=== PATIENT | female | born 1970 | race Caucasian/White ===

== ENCOUNTER 2020-02-10 11:30 | Outpatient (REF) | payer OTHER, BC, SELFPAY ==
[2020-02-10 11:54] LABS: COVID-19 Test Negative (Negative)
== END 2020-02-10 11:31 | disposition home or self-care (01) ==
LOC: HO.EMPCOV 11:30
PROVIDERS: Visit Provider Internal Medicine
DX: Z20.828 Contact with and (suspected) exposure to other viral communicable diseases (principal)
CPT/HCPCS: 87635; C9803

== ENCOUNTER 2020-04-06 09:56 | Outpatient (REF) | payer OTHER, BC, SELFPAY ==
--- NOTE | 2020-04-06 | PFT_ITS ---
FLOWS: FEV1 of 113% of predicted at 3.38 L. FVC 105% of predicted at 3.96 L. FEV1 to FVC ratio of 0.85. Positive bronchodilator response. LUNG VOLUMES: Total lung capacity 96% of predicted at 5.14 L. Residual volume 64% of predicted at 1.23 L. Slow vital capacity 113% of predicted at 3.91 L. Expiratory reserve volume 90% of predicted at 0.99 L. Diffusion capacity is normal. IMPRESSION: No obstructive or restrictive ventilatory defect. Positive bronchodilator response. Otherwise, normal pulmonary function test. Manpreet Henry MD AP/MODL / [id number]
== END 2020-04-06 09:57 | disposition home or self-care (01) ==
LOC: HO.RESP 09:56
PROVIDERS: Visit Provider Physician Assistant
DX: R05 Cough (principal)
CPT/HCPCS: 94060; 94727; 94729

== ENCOUNTER 2022-03-17 09:58 | Outpatient (REF) | payer SELFPAY | END 2022-03-17 09:59 | disposition home or self-care (01) | LOC: HO.HAP 09:58 | PROVIDERS: Visit Provider Family Medicine | DX: Z46.1 Encounter for fitting and adjustment of hearing aid (principal) | CPT/HCPCS: V5267 ==

== ENCOUNTER 2024-01-23 08:02 | Outpatient (REF) | payer BC, SELFPAY ==
[2024-01-23 09:50] LABS: Anion Gap 10 (12-20); Blood Urea Nitrogen 15 mg/dL (9-16); Calcium 9.2 mg/dL (8.4-10.2); Carbon Dioxide 27 mmol/L (22-29); Chloride 104 mmol/L (96-108); Cholesterol 220 mg/dL (<200); Estimated Glomerular Filt Rate > 60; Glucose Random 94 mg/dL (60-115); HDL Cholesterol 65 mg/dL (>40); LDL Cholesterol Calculated 129 mg/dL (<100); Potassium 4.5 mmol/L (3.3-5.1); Sodium 136 mmol/L (135-145); Triglycerides 132 mg/dL (<150)
[2024-01-25 19:29] LABS: LDL Cholesterol Direct 135 mg/dL (<100)
== END 2024-01-23 08:03 | disposition home or self-care (01) ==
LOC: HO.LAB 08:02
PROVIDERS: PCP Physician Assistant; Visit Provider Family Medicine
DX: E78.2 Mixed hyperlipidemia (principal)
CPT/HCPCS: 36415; 80048; 80061; 83721

== ENCOUNTER 2024-06-14 13:50 | Outpatient (AMB) | payer BC, SELFPAY ==
--- NOTE | 2024-06-14 13:52 | A.OFFVIS_ITS ---
Vital Signs 06/14/24 14:02 Height 5 ft 6 in Weight 174 lb 2.643 oz BMI 28.1 BP 152/70 H Blood Pressure Location Lt brachial Position Sitting Pulse 78 Intake Visit Reasons: Diverticulitis Intake Note: Raina presents in the office asa new patient. CC: states that she had a flare up a couple months ago - she had a CT and images are in there as it was done here. She states that she is questioning a rectocele. Security Escort Required: No Allergies carbamazepine [From Tegretol] Allergy (Mild, Verified 06/14/24 14:02) Unknown HPI HPI Diverticulitis: Details: Patient is a 54-year-old female with past medical history of hypertension, constipation and diverticulitis. She was referred by PCP for further eval of diverticulitis. She was evaluated by her PCP fall 2024 for acute abdominal pain and stool changes. She underwent a CT 10/2023 which revealed uncomplicated diverticulitis in the descending colon without evidence of abscess. First screening colonoscopy 04/2019, difficulty reported due to significant looping and tortuous colon. However, successful completion aided by abdominal pressure and good prep. Diverticulosis noted in the sigmoid colon and ascending colon. She underwent an endoscopy as well. Appears for heartburn and esophageal reflux evaluation. Suspicion for Hodges's esophagus. Biopsy results not available at time of visit. She reports concern for ? Rectocele-describes as a bulge between the vagina and the rectum in the setting of chronic constipation. She is unclear if symptoms change with defecating. She is scheduled to see Urogynecology in the coming months. Reports daily bowel movements with soft formed stools. However, reports sensation of incomplete evacuation X approximately 10 months. She endorses adequate hydration and consumes Metamucil daily. Also uses a squatty potty. Does experience occasional hemorrhoids-currently denies episode. Patient denies: systemic symptoms, n/v, appetite changes, unexplained weight loss or melena/hematochezia She is prescribed olmesartan for hypertenion managment. Prescribed Ozempic since October 2023 for weight management. She denies any major surgeries, other cardiopulmonary condition or any personal CA history Social history: Consumes approximately 2 glasses of wine 4x/week Denies recreational drug use? Non -smoker Family history: Father-prostate cancer Paternal aunt-breast cancer, remission [facility] Surgical History (Updated 06/14/24 @ 14:02 by LIZZ Mercado) Hx of colonoscopy History of esophagogastroduodenoscopy (EGD) Review of Systems Const Reports as per [facility] Card Reports as per [facility] Resp Reports as per HPI GI Reports as per HPI Reports as per HPI Neuro Reports as per HPI Psych Reports as per HPI Physical Exam Vital Signs: Last Vital Signs Pulse 78 06/14/24 14:02 BP 152/70 H 06/14/24 14:02 BMI result Body Mass Index 28.1 Const General: healthy appearing, no acute distress and well developed Nutritional Appearance: well nourished Orientation/consciousness: patient oriented x3 HEENT Head: Yes normal to inspection, Yes normocephalic and Yes atraumatic Face and sinus: Yes normal facial exam Eyes General: appearance normal, both eyes and all related structures Neck Neck: Yes normal visual inspection Resp Effort & Inspection: normal respiratory effort and able to speak in complete sentences Neuro General: patient oriented x3 Gait exam (Neuro): Normal gait present Psych Appearance: grossly normal Mental Status: mental status grossly normal Speech and movement: Normal speech and movement present Affect: normal affect Attitude: cooperative Thought process: Normal thought process present Thought content: Normal thought content present Insight: Good insight present (Psych) Judgement: Good judgement present (Psych) Assessment & Plan Assessment & Plan (1) Diverticulosis: Code(s): K57.90 - Diverticulosis of intestine, part unspecified, without perforation or abscess without bleeding Category: Medical Plan: Reviewed to 05/02/2019 screening colonoscopy- diverticulosis noted to ascending and sigmoid colon and 10/23/[address]- uncomplicated focal descending colonic diverticulitis without evidence of extraluminal abscess + can see in ascending colon on scan. Advised to repeat colonoscopy for confirmation VS CA r/o. Continue with adequate hydration and fiber. Education on prep and p rocedure expectations. She understands to hold Ozempic a week prior to procedure. Prepped Rx'd to preferred pharmacy. (2) Overweight (BMI 25.0-29.9): Code(s): E66.3 - Overweight Category: Medical Plan: BMI 28.1. Prescribed Ozempic since 10/2023 (3) Constipation: Code(s): K59.00 - Constipation, unspecified Category: Medical Plan: long hx. ? complication of rectocele. Discuss XR defecography for further eval. She is agreeable and understands this will be completed at [facility]. Keep upcoming appt with Urogyn. Continue supportive care of adequate hydration, higher fiber intake and proper toilet positioning. Folllow up after colo + testing or sooner as needed. (4) History of diverticulitis: Code(s): Z87.19 - Personal history of other diseases of the digestive system Plan: single episode 10/2023. Plan as above. Plan as above Orders: Orders XR defecography Today K59.00 - Constipation, unspecified Medications: New peg 3350-electrolytes 236-22.74-6.74 -5.86 gram (Golytely) as per split prep instructions, until fecal effluent is clear 240 mL PO Q10M 4,000 mL 0RF colonoscopy Coding Level of Care Code New Pt New Pt Level 4 (06273) Patient Type New Diagnoses Diverticulosis K57.90 Overweight (BMI 25.0-29.9) E66.3 Constipation K59.00 History of diverticulitis Z87.19
[2024-06-14 14:02] VITALS: BP 152/70; PULSE 78; BMI 28.1
== END 2024-06-14 14:51 | disposition home or self-care (01) ==
LOC: HO.HGI 13:51
PROVIDERS: Visit Provider Internal Medicine
DX: K57.90 Diverticulosis of intestine, part unspecified, without perforation or abscess without bleeding (principal); E66.3 Overweight; K59.00 Constipation, unspecified; Z87.19 Personal history of other diseases of the digestive system
CPT/HCPCS: 99204

== ENCOUNTER → 2024-06-14 13:50 | Outpatient (BNVA) | payer BC, SELFPAY | PROVIDERS: Visit Provider Internal Medicine ==

== ENCOUNTER 2024-08-12 11:49 | Outpatient (REF) | payer BC, SELFPAY | END 2024-08-12 11:50 | disposition home or self-care (01) | LOC: HO.LNP 11:49 | PROVIDERS: Visit Provider Obstetrics & Gynecology | DX: R87.612 Low grade squamous intraepithelial lesion on cytologic smear of cervix (LGSIL) (principal) | CPT/HCPCS: 57454; 88305; 88341; 88342 ==

== ENCOUNTER 2024-08-12 11:49 | Outpatient (AMB) | payer BC, SELFPAY ==
--- NOTE | 2024-08-12 11:55 | MHC.OFFVIS ---
Vital Signs 08/12/24 11:56 Height 5 ft 6 in Weight 174 lb BMI 28.1 BP 130/84 Intake Visit Reasons: rectal/vag prolapse/personal referral Director Of Officiating Required: No Information Interpreted: non-clinical & clinical Education Instructor: Education Instructor Present (Qi ZAMUDIO) Accompanied by: Self / Same As Patient Allergies carbamazepine [From Tegretol] Allergy (Mild, Verified 08/12/24 11:56) Unknown Post menopausal: Yes HPI Comments Details: Presenting for abnormal Pap [place] done in 04[place] [place] [facility] [place]/HPV high-risk positive . In addition, the patient is complaining of rectal pressure bulge per vagina leading to constipation. The Patient was referred to urogynecology at [facility] and is considering surgical management [facility] Medical History HTN (hypertension) Surgical History Hx of colonoscopy History of esophagogastroduodenoscopy (EGD) Family History Father HTN (hypertension) Mother HTN (hypertension) Sister HTN (hypertension) Paternal Aunt Breast cancer Social History Household Members: Spouse Household Members Other:: mother Housing: House Alcohol intake: current Alcohol intake frequency: a few times a week Alcohol type: wine Patient Tobacco Use Status: Never used Tobacco Current occupational status: employed 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[place] Sexual orientation: Straight/Heterosexual Gender identity: Female Female Reproductive History Menstrual Total pregnancies: 4 Full term: 1 Number of Living Children: 1 Ab spontaneous: 1 Review of Systems Const All systems reviewed & are unremarkable except as noted in HPI and below Physical Exam Vital Signs: Last Vital Signs BP 130/84 08/12/24 11:56 BMI result Body Mass Index 28.1 General: Yes no CVA tenderness External Female Exam: normal external appearance and normal appearance of the urethra Speculum Exam - Vagina: abnormal appearance of the vagina (Rectocele), normal palpation, no lesions and no masses Speculum Exam - Cervix: normal appearance of the cervix, normal palpation, no lesions, no masses and nontender Bimanual exam- vagina & uterus: normal bimanual exam, normal palpation, uterine size normal, normal palpation, uterine shape normal, No Cervical tenderness present and non-tender Bimanual Exam- Adnexa, other: normal adnexae Back/Spine/Pelvis Back: no CVA tenderness Office Procedures Colposcopy Colposcopy: Pre-Procedure Counseling: Before beginning the procedure, I conducted comprehensive counseling with the patient. We thoroughly discussed the procedure itself, including its details, alternatives, and all associated risks. This included but not limited to the following complications such as bleeding, infection, and injury to the vagina, bladder, and vessels, as well as the potential need for transfusion with all its associated risks. Subsequently, the patient sign the consent. Pap smear result: LSIL/HPV positive. Urine test in office = Negative Procedure: During the procedure, the following steps were performed: A speculum was inserted, and acetic acid was applied. Colposcopy was conducted, allowing visualization of the transformation zone. Acetowhite lesions were identified at the 4+7+12+3 o'clock position. Cervical biopsies were obtained from the 4+7+12+ o'clock position, followed by an endocervical curettage (ECC). Vaginoscopy of the upper vagina revealed no evidence of aceto-white lesions. Hemostasis was achieved using Monsel solution, and the patient tolerated the procedure well. Post-Procedure Instructions: The patient was advised to promptly contact the office or the after hours answering service or go to the emergency room if experiencing a temperature exceeding 100.4?F, abdominal pain, nausea/vomiting, or bleeding. Additionally, the patient was instructed to abstain from vaginal intercourse and bathtub use. The patient confirmed understanding of these instructions. Discharge Instructions: The patient was instructed to schedule a follow-up appointment in 2 weeks for further evaluation and management. Please note that this note was generated using a voice recognition program, and errors may have occurred during dental office manager. 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 the false positive/negative rate of a Pap smear as a screening test in detecting cervical cancer and the indication for a diagnostic test -colposcopy, biopsy, endocervical curettage. The patient verbalized understanding and agreed with the plan, all questions answered. Colposcopy, biopsy /ECC done, see procedure note (2) Rectocele: Code(s): N81.6 - Rectocele Category: Medical Plan: Discussed with the patient the finding on pelvic exam showing rectocele with the patient already so [facility] Urogynecology, the recommendation was surgical management, the patient is thinking about it. Will refer back to Urogynecology when the patient is interested. Orders: Orders AMB Colposcopy Today R87.612 - Low grade squamous intraepithelial lesion on cytologic smear of cervix (LGSIL) Coding Level of Care Code New Pt Level 3 (10357) Procedure Only Diagnoses LGSIL on Pap smear of cervix R87.612 Rectocele N81.6 CPT Codes Colposcopy - CPT: 93203-Cegvedvow of cervix including upper vagina with biopsy and ECC ([id number])
[2024-08-12 11:56] VITALS: BP 130/84; BMI 28.1
== END 2024-08-12 12:46 | disposition home or self-care (01) ==
LOC: HO.HWS 11:50
PROVIDERS: Visit Provider Obstetrics & Gynecology
DX: R87.612 Low grade squamous intraepithelial lesion on cytologic smear of cervix (LGSIL) (principal); N81.6 Rectocele
CPT/HCPCS: 57454; 99203

== ENCOUNTER 2024-08-15 11:56 | Outpatient (AMB) | payer OTHER, SELFPAY ==
--- NOTE | 2024-08-15 11:57 | MHC.OFFVIS ---
Intake Visit Reasons: vaginal bleeding after colpo Reel Stripper: Reel Stripper Present (Oma) Accompanied by: Self / Same As Patient Allergies carbamazepine [From Tegretol] Allergy (Mild, Verified 08/15/24 11:57) Unknown HPI Comments Details: Presenting post colpo complaining of vaginal irritation. In addition the patient had an episode of vaginal bleeding during a BM this morning. Bleeding has resolved since then. The pathology showed the following: A. Endocervix, curettage: Endocervical glandular mucosa with squamous metaplasia, inflammation, and reactive changes; negative for dysplasia. B. Cervix, 3:00, biopsy: Squamous mucosa with inflammation and reactive changes; negative for dysplasia; no endocervical glandular mucosa present. C. Cervix, 4:00, biopsy: Squamous mucosa with inflammation and reactive changes; negative for dysplasia; no endocervical glandular mucosa present. D. Cervix, 7:00, biopsy: Squamous mucosa with inflammation and reactive changes; negative for dysplasia; no endocervical glandular mucosa present. E. Cervix, 12:00, biopsy: Squamous mucosa with inflammation and reactive changes; negative for dysplasia; no endocervical glandular mucosa present. Comment: No recent previous Pap at [facility] for review. 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[place] Sexual orientation: Straight/Heterosexual Gender identity: Female Review of Systems Const All systems reviewed & are unremarkable except as noted in HPI and below Reports as per HPI and Reports no additional complaints GI Reports no additional complaints Reports no additional complaints Physical Exam General: Yes no CVA tenderness External Female Exam: normal external appearance and normal appearance of the urethra Speculum Exam - Vagina: normal appearance of the vagina, normal palpation, no lesions and no masses Speculum Exam - Cervix: normal appearance of the cervix, normal palpation, no lesions, no masses, nontender and Other cervical findings present (No evidence of bleeding) Bimanual exam- vagina & uterus: normal bimanual exam, normal palpation, uterine size normal, normal palpation, uterine shape normal, No Cervical tenderness present and non-tender Bimanual Exam- Adnexa, other: normal adnexae Back/Spine/Pelvis Back: no CVA tenderness Assessment & Plan Assessment & Plan (1) 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 Discussed with the patient the sensitivity specificity, positive and negative predictive value in detecting cervical cancer in addition discussed the regression, persistence and progression rates. Recommended co-testing in 12 months, if cytology and or HPV are abnormal will proceed was colposcopy biopsy and endocervical curettage. Instructions given to the patient to schedule a co test appointment in 1 year. All questions answered the patient verbalized understanding. (2) Vulvovaginitis: Code(s): N76.0 - Acute vaginitis Category: Medical Plan: BV panel collected. Will check the results and treat accordingly. Terazol 0.8% q.h.s. for 3 days sent to the patient's pharmacy. Instructions given the patient to call in case symptoms not improve Medications: New terconazole 0.8% 1 appful vaginal BEDTIME 3 days 20 grams 0RF Coding Level of Care Code Est Pt Level 3 (83468) Diagnoses LGSIL on Pap smear of cervix R87.612 Vulvovaginitis N76.0
== END 2024-08-15 12:07 | disposition home or self-care (01) ==
LOC: HO.HWS 11:56
PROVIDERS: Visit Provider Obstetrics & Gynecology
DX: R87.612 Low grade squamous intraepithelial lesion on cytologic smear of cervix (LGSIL) (principal); N76.0 Acute vaginitis
CPT/HCPCS: 99213

== ENCOUNTER 2024-08-15 11:56 | Outpatient (REF) | payer OTHER, SELFPAY ==
[2024-08-15 17:27] LABS: Bacterial Vaginosis PCR NEGATIVE (Negative); Candida Group PCR NOT DETECTED (Not Detect); Candida glab krusei PCR NOT DETECTED (Not Detect); Trichomonas vaginalis PCR NOT DETECTED (Not Detect)
== END 2024-08-15 11:57 | disposition home or self-care (01) ==
LOC: HO.LNP 11:56
PROVIDERS: Visit Provider Obstetrics & Gynecology
DX: N76.0 Acute vaginitis (principal); R87.612 Low grade squamous intraepithelial lesion on cytologic smear of cervix (LGSIL)
CPT/HCPCS: 81515

== ENCOUNTER 2024-09-05 11:46 | Day surgery (SDC) | payer OTHER, SELFPAY ==
--- NOTE | 2024-09-02 12:47 | P.CONAN_ITS ---
HPI - Anesthesia Eval Consult details Narrative: 54yo F for Colonoscopy PMFSH Active Problems Active Problems: All Active Problems Vulvovaginitis (Acute) Rectocele (Acute) LGSIL on Pap smear of cervix (Acute) Overweight (BMI 25.0-29.9) (Acute) Diverticulosis (Acute) Constipation (Acute) Pain in toe of left foot (Acute ~11/28/23) COVID-19 ruled out (Acute) Past Medical History Medical History Trigeminal neuralgia HTN (hypertension) Family History Family History Father HTN (hypertension) Mother HTN (hypertension) Sister HTN (hypertension) Paternal Aunt Breast cancer Surgical History Surgical History H/O sinus surgery H/O tubal ligation Hx of colposcopy with cervical biopsy Hx of colonoscopy History of esophagogastroduodenoscopy (EGD) Social History Social History Household Members: Spouse Household Members Other:: mother Housing: House Alcohol intake: current Alcohol intake frequency: a few times a month Alcohol type: wine Patient Tobacco Use Status: Never used Tobacco Current occupational status: employed 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[place] Sexual orientation: Straight/Heterosexual Gender identity: Female Meds Allergies Allergy/AdvReac Type Severity Reaction Status Date / Time carbamazepine (From Tegretol) Allergy Mild Hives Verified 09/11/24 13:03 Home Medications ?Medication ?Instructions ?Recorded ?Confirmed ?Last Taken ?Type bupropion HCl 150 mg 24 hr tablet, 150 mg PO DAILY 07/05 Unknown History extended release escitalopram oxalate 10 mg tablet 10 mg PO DAILY 06/14 Unknown History olmesartan 20 mg tablet 20 mg PO DAILY 06/14/24 Unk nown History polyethylene glycol 3350 17 17 g PO DAILY PRN 09/11/24 Unknown History gram/dose oral powder (Miralax) Assessment and Plan Assessment Anesthesia Assessment: Chart Reviewed
[2024-09-03 09:28] VITALS: BMI 28.1
[2024-09-05 12:19] VITALS: BMI 27.8
--- NOTE | 2024-09-05 12:22 | MHC.SHP ---
Pre-Procedural Eval Section A - 24 Hr Update-Section A only Date of Service: 09/05/24 Section B - Complete if H&P > 30 days Chief Complaint: Diverticulitis of intestine, part unspecified, wit Details of Present Illness: hypertension, constipation and diverticulitis Present Medications: see Short Stay Collaborative assessment Allergies: Allergies Allergy/AdvReac Type Severity Reaction Status Date / Time carbamazepine (From Tegretol) Allergy Mild Hives Verified 09/05/24 12:18 Review of Systems Review of Systems Comment: Ten point ROS negative Exam Exam Comment: Gen appear: No acute distress HEENT: no icterus Chest: No overt resp distress Abd: soft, nontender, nondistended Psych: Stable affect, answering questions appropriately Neuro: A/Ox3 noted to move all extremities spontaneously Ext: no peripheral edema Plan Diagnosis/Plan: Unchanged I have reviewed the history and physical and performed a pertinent physical examination on my patient. No changes have occurred unless specified. Time Spent With Patient Time: Total time managing care of this patient today ____ minutes.
[2024-09-05 12:31] VITALS: BP 132/87; PULSE 65; RESP 16; TEMP 36.2; O2SAT 100
[2024-09-05] MEDS: Lactated Ringers 1,000 ML 100 ML IVCONT (12:44)
--- NOTE | 2024-09-05 12:48 | HO.ANESPROP2 ---
[facility] [place] [place] Active Problems Active Problems: All Active Problems (Updated 09/05/24 @ 12:19 by Citlalli Doss RN) Vulvovaginitis (Acute) Rectocele (Acute) LGSIL on Pap smear of cervix (Acute) Overweight (BMI 25.0-29.9) (Acute) Diverticulosis (Acute) Constipation (Acute) Pain in toe of left foot (Acute ~11/28/23) COVID-19 ruled out (Acute) Past Medical History Medical History Trigeminal neuralgia HTN (hypertension) Functional capacity: independent ambulation Patient : No Family History Family History Father HTN (hypertension) Mother HTN (hypertension) Sister HTN (hypertension) Paternal Aunt Breast cancer Family history of problems with anesthesia: No Surgical History Surgical History H/O sinus surgery H/O tubal ligation Hx of colposcopy with cervical biopsy Hx of colonoscopy History of esophagogastroduodenoscopy (EGD) History of Problems with Anesthesia: No Social History Social History Household Members: Spouse Household Members Other:: mother Housing: House Alcohol intake: current Alcohol intake frequency: a few times a week Alcohol type: wine Patient Tobacco Use Status: Never used Tobacco Current occupational status: employed 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[place] Sexual orientation: Straight/Heterosexual Gender identity: Female Meds Allergies Allergy/AdvReac Type Severity Reaction Status Date / Time carbamazepine (From Tegretol) Allergy Mild Hives Verified 09/05/24 12:18 Active Medications: Current Medications Lactated Ringer's (Lr) 1,000 mls @ 100 mls/hr IVCONT .Q10H HUBER Last Admin: 09/05/24 12:44 Dose: 100 mls/hr Home Medications ?Medication ?Instructions ?Recorded ?Confirmed ?Last Taken ?Type bupropion HCl 150 mg 24 hr tablet, 150 mg PO DAILY 06/14/24 Unknown History extended release escitalopram oxalate 10 mg tablet 10 mg PO DAILY 06/14/24 Unknown History olmesartan 20 mg tablet 20 mg PO DAILY 06/14/24 Unknown History Exam Height,Weight and Vital Signs: Height 5 ft 6 in Weight 78.2 kg Last Vital Signs Temp 97.2 F 09/05/24 12:31 Pulse 65 09/05/24 12:31 Resp 16 09/05/24 12:31 BP 132/87 09/05/24 12:31 Pulse Ox 100 09/05/24 12:31 O2 Del Method Room Air 09/05/24 12:31 Airway Mallampati Class: II TM Dist: >3cm Neck ROM: Full Heart: RRR Lungs: CTA Assessment and Plan Assessment Anesthesia Assessment: Anesthesia Plan Discussed Final Anesthetic Review Family History of Problems with Anesthesia: No History of Problems with Anesthesia: No NPO: Yes ASA Class: II Final Preanesthetic Review: Meds/Allgs Chart Reviewed, Consent Obtained/Reviewed and Anes Risks/Benef Reviewed Patient Risk: Low Procedure Risk: Low Anesthetic Plan Anesthetic Plan: MAC: Disposition: Standard PACU
--- NOTE | 2024-09-05 14:01 | P.OPN-COLO_ITS ---
Colonoscopy Operative Note Operative Note Date of Service: 09/05/24 Narrative: Procedure: Colonoscopy Indication: Diverticulitis Endoscopist: Sandy Abernathy MD Anesthesia Provider: Dr Katie Villegas Anesthesia type: MAC Instrument: Olympus [id number] Consent: Indication, risks vs benefits, and alternatives were discussed with the patient who gave written informed consent to proceed. EKG, pulse, pulse oximetry and blood pressure were monitored throughout the procedure. Please see anesthesia flowsheet. Procedure: The patient was brought to the procedure room and placed in the left lateral decubitus position. IV medications were administered by the anesthesia provider in attendance. A digital rectal exam was performed which was normal. A distal attachment cap was affixed to the tip of the colonoscope which was then inserted through the anus and advanced through the colon to the cecum at 75 cm,and terminal ileum. Appendiceal orifice and ileocecal valve were identified. Mucosa was carefully examined under high definition white light as the instrument was slowly withdrawn in a retrograde panoramic fashion. Retroflexion was performed in rectum. The procedure was not difficult. There were no immediate obvious complications. The quality of the prep was BBPS: 2+3+3 = adequate Withdrawal time 8 minutes. Limitations: No limitations. Findings: Mucosa: Normal to cecum and terminal ileum. Protruding lesions: * Medium internal hemorrhoids without stigmata of recent bleeding. Excavated lesions: * Moderate diverticulosis of left sided colon. Impression: 1. Normal colon mucosa 2. Diverticulosis 3. Internal hemorrhoids Recommendations: - Repeat colonoscopy in 10 years for asymptomatic colorectal ca screening. - Would recommend adult scope for future colo as well.
[2024-09-05 14:06] VITALS: BP 96/58; PULSE 70; RESP 16; TEMP 36.8; O2SAT 96
[2024-09-05 14:20] VITALS: BP 108/67; PULSE 77; RESP 16; O2SAT 97
[2024-09-05 14:26] VITALS: BP 114/69; PULSE 69; RESP 16; TEMP 37.1; O2SAT 97
== END 2024-09-05 14:47 | disposition home or self-care (01) ==
PROVIDERS: PCP Family Medicine; Visit Provider Internal Medicine
PROC: 0DJD8ZZ Inspection of Lower Intestinal Tract, Via Natural or Artificial Opening Endoscopic (ICD-10-PCS; CPT 45378; principal; 2024-09-05 14:20)
DX: K57.30 Diverticulosis of large intestine without perforation or abscess without bleeding (principal); K64.8 Other hemorrhoids; Z87.19 Personal history of other diseases of the digestive system
CPT/HCPCS: 45378

== ENCOUNTER → 2024-09-05 11:46 | Outpatient (BNV) | payer OTHER, SELFPAY | PROVIDERS: PCP Family Medicine; Visit Provider Internal Medicine | DX: K57.90 Diverticulosis of intestine, part unspecified, without perforation or abscess without bleeding (principal); K64.8 Other hemorrhoids | CPT/HCPCS: 45378 ==

== ENCOUNTER → 2024-09-08 08:20 | Outpatient (BNV) | payer OTHER, SELFPAY | PROVIDERS: Emergency Provider Emergency Medicine; PCP Family Medicine; Visit Provider Radiology Diagnostic Radiology | DX: M25.512 Pain in left shoulder (principal) | CPT/HCPCS: 73030 ==

== ENCOUNTER 2024-09-08 08:49 | Emergency (ER) | payer OTHER, SELFPAY ==
--- NOTE | ~2024-09-08 | XR_ITS ---
CLINICAL HISTORY: pain s p fall 3 view left shoulder Comparison: None Findings: No fracture or dislocation. Mild acromioclavicular and glenohumeral osteoarthritis. Subacromial spur. IMPRESSION: 1. No acute findings. This document has been electronically signed by: Alok Dwyer DO on 09/08/2024 11:50:04
[2024-09-08 08:51] VITALS: BP 132/79; PULSE 83; RESP 18; TEMP 37.2; O2SAT 97; BMI 28.9
--- NOTE | 2024-09-08 09:05 | ED_ITS ---
HPI - Extremity Problem General Chief complaint: Extremity Injury, Upper Stated complaint: shoulder inj Time Seen by Provider: 09/08/24 09:05 Source: patient Mode of arrival: ambulatory Limitations: no limitations History of Present Illness ED Provider: Yumiko Flanagan PA-C HPI Narrative: Patient is a 54 year old assigned female at with a history of diverticulosis presenting to the emergency department today with left shoulder pain. Patient states that yesterday she fell down 2 stairs and ever since she has had left shoulder pain with specific movement. Patient denies any loss of consciousness, dizziness, lightheadedness, abdominal pain, nausea, vomiting, fever, chills, blurry vision, double vision, loss of vision, chest pain, difficulty breathing, shortness of breath, back pain, night sweats, pain with urination, increased urinary frequency, increased urinary urgency, blood in her urine or stool, syncope or a near syncopal episode, bowel incontinence, bladder incontinence, or any other complaints at this time. Relieving factors: immobilization Exacerbating factors: range of motion Associated symptoms: denies other symptoms Related Data Home Medications ?Medication ?Instructions ?Recorded ?Confirmed bupropion HCl 150 mg 24 hr tablet, 150 mg PO DAILY 07/05 extended release escitalopram oxalate 10 mg tablet 10 mg PO DAILY 06/14 olmesartan 20 mg tablet 20 mg PO DAILY 06/14/24 Previous Rx's ?Medication ?Instructions ?Recorded terconazole 0.8 % vaginal cream 1 appful vaginal BEDTI ME 3 days 08/15/24 #20 grams Allergies Allergy/AdvReac Type Severity Reaction Status Date / Time carbamazepine (From Tegretol) Allergy Mild Hives Verified 09/08/24 08:54 Review of Systems Constitutional: Constitutional: Reports no additional constitutional complaints, Denies chills, Denies fever(s) and Denies night sweats Eyes: Eyes: Reports no additional eye complaints, Denies blurry vision, Denies change in vision, Denies diplopia, Denies eye discharge, Denies loss of vision and Denies eye pain ENT: Denies dizziness Cardiovascular: Cardiovascular: Reports no additional cardiovascular complaints, Denies chest pain, Denies lightheadedness, Denies Loss of Consciousness and Denies dyspnea Respiratory: Respiratory: Reports no additional respiratory complaints and Denies dyspnea Gastrointestinal: Gastrointestinal: Reports no additional gastrointestinal complaints, Denies abdominal pain, Denies melena, Denies hematochezia, Denies change in bowel habits and Denies change in stool character Genitourinary: Genitourinary: Denies hematuria, Denies urinary frequency, Denies dysuria, Denies urinary incontinence, Denies urinary hesitancy and Denies urinary urgency Musculoskeletal: Musculoskeletal: Reports no additional musculoskeletal complaints, Denies numbness and Denies tingling Comments: left shoulder pain Neurologic: Denies dizziness, Denies loss of vision, Denies numbness and Denies tingling Psychiatric: Psychiatric: Reports no additional psychiatric complaints Endocrine: Endocrine: Reports no additional endocrine complaints Hematologic/Lymphatic: Hematologic/Lymphatic: Reports no additional hematologic/lymphatic complaints Allergic/Immunologic: Allergic/Immunologic: Reports no additional allergic/immunologic complaints PMFSH Past Medical History Attestation statement: The following information was validated with the patient. Source: old records reviewed and nursing notes reviewed Medical History Trigeminal neuralgia HTN (hypertension) Surgical History H/O sinus surgery H/O tubal ligation Hx of colposcopy with cervical biopsy Hx of colonoscopy History of esophagogastroduodenoscopy (EGD) Family History Family History Father HTN (hypertension) Mother HTN (hypertension) Sister HTN (hypertension) Paternal Aunt Breast cancer Social History Social History Household Members: Spouse Household Members Other:: mother Housing: House Alcohol intake: current Alcohol intake frequency: a few times a month Alcohol type: wine Patient Tobacco Use Status: Never used Tobacco Smoked in Last 30 Days: No Use of substances other than those prescribed or required for medical reasons: No Advance Directives: No Advance Directives Information Provided: Yes Current occupational status: employed 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[place] Sexual orientation: Straight/Heterosexual Gender identity: Female Physical Exam Vital Signs: Vital Signs: Last Vital Signs Temp 98.4 F 09/08/24 10:12 Pulse 80 09/08/24 10:12 Resp 15 09/08/24 10:12 BP 132/82 09/08/24 10:12 Pulse Ox 99 09/08/24 10:12 O2 Del Method Room Air 09/08/24 10:12 BMI result Body Mass Index 28.9 Const: General: cooperative, no acute distress, alert and awake Nutritional Appearance: well nourished Orientation/consciousness: patient oriented x3 HEENT: Head: Yes normal to inspection and Yes atraumatic Ears: hearing grossly normal bilaterally and external ears normal General nose exam: Normal external nose present, no nasal discharge noted and no epistaxis Face and sinus: Yes normal facial exam, No abrasion and No laceration Mouth: Normal oral and palatal mucosa present, no drooling and no muffled voice Eyes: General: appearance normal, both eyes and all related structures Periorbital: periorbital findings normal Eyelids: Yes eyelids normal Co njunctivae: conjunctivae normal Pupils: Equal, round and reactive pupils present EOM: EOMs intact bilaterally Neck: Neck: Yes normal visual inspection, Yes full ROM and Yes no lymphadenopathy Resp: Effort & Inspection: normal respiratory effort and able to speak in complete sentences Neuro: General: patient oriented x3, moves all extremities and CN's II-XI intact bilaterally Cranial nerves: Yes Equal, round and reactive pupils present Cognition (Neuro): normal cognition Extrem: Other: pain with left shoulder abduction General: Yes normal to inspection and Yes capillary refill normal Psych: Appearance: grossly normal Mental Status: mental status grossly normal Affect: normal affect Attitude: cooperative Thought process: Normal thought process present Thought content: Normal thought content present Insight: Good insight present (Psych) Medical Decision Making Medical Decision Making MDM Narrative: Patient is a 54 year old assigned female at with a history of diverticulosis presenting to the emergency department today with left shoulder pain. Patient's physical exam was as noted in the physical exam portion of this note. Patient's left shoulder x-ray showed no acute process. I am concerned for a left rotator cuff injury. I spoke with the orthopedic team who recommended outpatient follow up with sling use for comfort only. I explained my physical exam findings as well as all test results to the patient. I answered all questions asked by the patient. Patient's left arm was placed in a sling, without incident. Patient's PMS was intact prior to and after sling placement. I stressed the importance of the patient taking her medication as directed (either prescribed or as the over the counter packaging recommends). I stressed the importance of the patient following up with her primary care provider and the orthopedic team. I stressed the importance of the patient returning to the emergency department immediately if her symptoms were to worsen or if she were to develop any dizziness, shortness of breath, difficulty breathing, chest pain, blurry vision, loss of vision, nausea, vomiting, abdominal pain, fever, chills, back pain, or any other complaints. Patient verbalized agreement and understanding with this treatment plan and discharge. Differential Diagnosis Differential Diagnoses: The differential diagnosis associated with the presentation includes Left shoulder injury Left shoulder sprain Left shoulder rotator cuff injury Admission/Observation Consideration of admission/observation: Escalation of care including admission/observation considered Patient would have been admitted to the hospital had her work up had any findings where hospital admission was appropriate and her clinical presentation warranted hospital admission. Consult Healthcare Provider Management of the patient was discussed with: [facility] Advisor (spoke with the orthopedic team as noted in the MDM Rationale portion of this note. ) Independent Interpretation I performed an independent interpretation of an: Plain X-Ray Interpretation: My interpretation is in agreement with the radiologist's impression of this imaging study. CLINICAL HISTORY: pain s p fall 3 view left shoulder Comparison: None Findings: No fracture or dislocation. Mild acromioclavicular and glenohumeral osteoarthritis. Subacromial spur. IMPRESSION: 1. No acute findings. This document has been electronically signed by: Alok Dwyer DO on 09/08/2024 11:50:04 Dictated By: Alok Dwyer MD Signed By: Electronically signed by Alok Dwyer MD 09/08/24 115 Radiology Impression Discussion of test interpretation with radiology: I have reviewed the radiologist's reading. Discharge Plan Discharge Clinical Impression: Shoulder sprain, Injury of left rotator cuff Patient Disposition: Home, Self-Care Instructions: Rotator Cuff Injury (ED), Shoulder Sprain (ED), Rotator Cuff Injury Exercises (DC) Additional Instructions: Given your physical exam findings and imaging - I am suspicious you have injured your left rotator cuff (potentially your left supraspinatus muscle). The orthopedic team would like you to only use your sling for comfort and be out of it as much as possible. Continue with range of motion of the left shoulder that you can tolerate. Take over the counter tylenol and ibuprofen as needed for pain. Follow up with the orthopedic team. Follow up with your primary care provider. Return to the emergency department immediately if your symptoms worsen or if you develop any numbness, tingling, dizziness, shortness of breath, difficulty breathing, chest pain, blurry vision, loss of vision, nausea, vomiting, abdominal pain, fever, chills, back pain, or any other complaints. Prescriptions: No Action terconazole 0.8 % cream 1 appful vaginal BEDTIME 3 Days Qty: 20 0RF olmesartan 20 mg tablet 20 mg PO DAILY bupropion HCl 150 mg tablet extended release 24 hr 150 mg PO DAILY escitalopram oxalate 10 mg tablet 10 mg PO DAILY Referrals: [facility] [place] Orthopedic Surgeons [Provider Group] Referral Note: Call to establish and follow up with the orthopedic team. Ana Soto DO [Primary Care Provider, Family Practice] Interventions: ED Discharge Assessment Last Done: 09/08/24 10:12 Discharge Date/Time: 09/08/24 10:13 Print Language: Greenlandic
[2024-09-08 10:00] VITALS: BP 132/82; PULSE 80; RESP 15; TEMP 36.9; O2SAT 99
[2024-09-08 10:12] VITALS: BP 132/82; PULSE 80; RESP 15; TEMP 36.9; O2SAT 99
== END 2024-09-08 10:13 | disposition home or self-care (01) ==
LOC: HO.ED 10:03
PROVIDERS: Emergency Provider Emergency Medicine; PCP Family Medicine
DX: S43.422A Sprain of left rotator cuff capsule, initial encounter (principal); W10.9XXA Fall (on) (from) unspecified stairs and steps, initial encounter; Y93.9 Activity, unspecified; Y92.9 Unspecified place or not applicable; Y99.9 Unspecified external cause status; M25.512 Pain in left shoulder
CPT/HCPCS: 73030; 99283; 99284

== ENCOUNTER 2024-09-11 12:59 | Outpatient (AMB) | payer OTHER, SELFPAY ==
[2024-09-11 13:02] VITALS: BP 116/57; PULSE 69; BMI 28.8
--- NOTE | 2024-09-11 13:02 | A.OFFVIS_ITS ---
Vital Signs 3 09/11/24 13:02 Height 5 ft 6 in Weight 178 lb 9.191 oz BMI 28.8 BP 116/57 L Blood Pressure Location Lt brachial Position Sitting Pulse 69 Intake Visit Reasons: Follow up from colonoscopy and pelvis mri Intake Note: Raina presents in the office as a follow up for her colonoscopy. CC: She states that she is just here today for her results. Senior Auditor Required: No Allergies carbamazepine (From Tegretol) Allergy (Mild, Verified 09/11/24 13:03) Hives HPI Comments Details: Patient is a 54-year-old female with past medical history of hypertension, constipation and diverticulitis. She was referred by PCP for further eval of diverticulitis. She was evaluated by her PCP fall 2024 for acute abdominal pain and stool changes. She underwent a CT 10/2023 which revealed uncomplicated diverticulitis in the descending colon without evidence of abscess. First screening colonoscopy 04/2019, difficulty reported due to significant looping and tortuous colon. However, successful completion aided by abdominal pressure and good prep. Diverticulosis noted in the sigmoid colon and ascending colon. She underwent an endoscopy as well. Appears for heartburn and esophageal reflux evaluation. Suspicion for Hodges's esophagus. Biopsy results not available at time of visit. She reports concern for ? Rectocele-describes as a bulge between the vagina and the rectum in the setting of chronic constipation. She is unclear if symptoms change with defecating. She is scheduled to see Urogynecology in the coming months. Reports daily bowel movements with soft formed stools. However, reports sensation of incomplete evacuation X approximately 10 months. She endorses adequate hydration and consumes Metamucil daily. Also uses a squatty potty. Does experience occasional hemorrhoids-currently denies episode. Patient denies: systemic symptoms, n/v, appetite changes, unexplained weight loss or melena/hematochezia She is prescribed olmesartan for hypertenion managment. Prescribed Ozempic since October 2023 for weight management. She denies any major surgeries, other cardiopulmonary condition or any personal CA history Social history: Consumes approximately 2 glasses of wine 4x/week Denies recreational drug use? Non -smoker Family history: Father-prostate cancer Paternal aunt-breast cancer, remission 08/03/24: MR defecography: 09/05/24: 1. Normal colon mucosa 2. Diverticulosis 3. Internal hemorrhoids 09/11/24: Here for post colonoscopy follow-up. Notes reviewed from [facility]. Patient initially was planning to proceed with surgical repair, however reports that with medical management alone, constipation is under control and she currently is asymptomatic. Reviewed that based on defecography, appears to have intermittent urethral obstruction as well as incompletely emptying anterior rectocele. Encouraged seeing Colorectal surgery as well further input. [facility] Medical History Trigeminal neuralgia HTN (hypertension) Surgical History H/O sinus surgery H/O tubal ligation Hx of colposcopy with cervical biopsy Hx of colonoscopy History of esophagogastroduodenoscopy (EGD) Family History Father HTN (hypertension) Mother HTN (hypertension) Sister HTN (hypertension) Paternal Aunt Breast cancer Social History Household Members: Spouse Household Members Other:: mother Housing: House Alcohol intake: current Alcohol intake frequency: a few times a month Alcohol type: wine Patient Tobacco Use Status: Never used Tobacco Current occupational status: employed 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[place] Sexual orientation: Straight/Heterosexual Gender identity: Female Review of Systems Const All systems reviewed & are unremarkable except as noted in HPI and below Physical Exam Vital Signs: Last Vital Signs Pulse 69 09/11/24 13:02 BP 116/57 L 09/11/24 13:02 BMI result Body Mass Index 28.8 No apparent distress Nonicteric Abdomen soft, nondistended Alert and oriented x3, normal gait Assessment & Plan Assessment & Plan (1) Diverticulosis: Code(s): K57.90 - Diverticulosis of intestine, part unspecified, without perforation or abscess without bleeding Category: Medical (2) Rectocele: Code(s): N81.6 - Rectocele Category: Medical Plan Constipation is much better controlled, patient is asymptomatic. However, does have pelvic organ prolapse affecting both rectum and bladder emptying based on defecography. Pt unsure if really needs to pursue surgical repair if subjectively has minimal constipation. Reviewed that since has urinary sx may need some kind of surgical repair jose miguel if urodynamic study confirms functional urinary obstruction. On the other hand, rectocele can potentially be managed expectantly in the absence of significant sx but encouraged seeking an opinion from colorectal surgery as well. Referral to Dr Kyra Kilpatrick at [facility] requested. Routine asymptomatic colo due in 10 years. Follow up in 4 months Orders: Referrals 2 General Surgery Referral N81.6 - Rectocele Coding Level of Care Code Est Pt Level 4 (12943) Diagnoses Diverticulosis K57.90 Rectocele N81.6
== END 2024-09-11 13:40 | disposition home or self-care (01) ==
LOC: HO.HGI 13:00
PROVIDERS: PCP Family Medicine; Visit Provider Internal Medicine
DX: K57.90 Diverticulosis of intestine, part unspecified, without perforation or abscess without bleeding (principal); N81.6 Rectocele
CPT/HCPCS: 99214

== ENCOUNTER 2024-09-20 11:09 | Outpatient (REF) | payer OTHER, SELFPAY ==
--- NOTE | ~2024-09-20 | XR_ITS ---
CLINICAL HISTORY: M25.512 - Pain in left shoulder 3 view left shoulder Comparison: CR - XR SHOULDER LT MIN 2V - 09/08/24 09:20 EDT Findings: Bones intact. No dislocations. No significant arthritic change. No erosions. No radiopaque foreign body. IMPRESSION: 1. No acute findings This document has been electronically signed by: Kam Miranda MD, PHD on 09/22/2024 23:13:03
== END 2024-09-20 11:10 | disposition home or self-care (01) ==
LOC: HO.HOSX 11:09
DX: M25.512 Pain in left shoulder (principal)
CPT/HCPCS: 73030

== ENCOUNTER 2024-09-20 11:10 | Outpatient (AMB) | payer OTHER, SELFPAY ==
--- NOTE | 2024-09-20 11:20 | MHC.OFFVIS ---
Intake Visit Reasons: ED- Lt shoulder pain, DOI: 09/06/24 Intake Note: Raina is a 54 year old right hand dominant female who presents today as a new patient for an ED follow up after falling down 2 steps on 09/06/24, injuring her left shoulder. Patient reports she landed on her elbows. Complains of pain the shoulder blade, radiating up her neck. Denies numbness and tingling. She is taking Aleve for pain with relief. Denies previous surgeries to the shoulder. Allergies carbamazepine (From Tegretol) Allergy (Mild, Verified 09/20/24 11:22) Hives HPI HPI ED- Lt shoulder pain, DOI: 09/06/24: Details: Raina is a 54 year old right hand dominant female who presents today as a new patient for an ED follow up after falling down 2 steps on 09/06/24, injuring her left shoulder. Patient reports she landed on her elbows. Complains of pain the shoulder blade, radiating up her neck. Denies numbness and tingling. She is taking Aleve for pain with relief. Denies previous surgeries to the shoulder. The patient reports that her pain has improved dramatically from previous evaluation in the ED, and that she is hesitant to pursue any invasive treatment measures or further imaging due to her improvement. No other acute complaints or concerns at this time. [facility] Medical History Trigeminal neuralgia HTN (hypertension) Surgical History H/O sinus surgery H/O tubal ligation Hx of colposcopy with cervical biopsy Hx of colonoscopy History of esophagogastroduodenoscopy (EGD) Family History Father HTN (hypertension) Mother HTN (hypertension) Sister HTN (hypertension) Paternal Aunt Breast cancer Social History (Updated 09/20/24 @ 11:23 by LIZZ Vela) Household Members: Spouse Household Members Other:: mother Housing: House Alcohol intake: current Alcohol intake frequency: a few times a month Alcohol type: wine Patient Tobacco Use Status: Never used Tobacco Current occupational status: employed 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 She fell a couple of weeks ago, landing on her elbows backwards, which resulted in significant discomfort and suspicion of rotator cuff involvement by the emergency department. The shoulder is not fractured, and she retains mobility, although there is persistent pain with certain movements. The patient reports that the pain has improved since the initial injury but still experiences discomfort with specific motions. An x-ray revealed arthritic changes in the shoulder, which may contribute to the ongoing pain. The patient has no tenderness to palpation in most areas except for mild tenderness in the anterior and posterior shoulder regions. Physical examination showed a range of motion with forward flexion to 120-130 degrees without pain and abduction to 90 degrees bilaterally with mild discomfort. Strength testing was 5/5 with belly press and lift-off tests bilaterally, indicating good muscle function. The Good test was mildly positive, suggesting impingement syndrome rather than a rotator cuff tear. Review of Systems - Musculoskeletal: Reports shoulder pain and discomfort with certain movements. Denies any fractures. Systems reviewed and are negative except as per HPI and below Physical Exam - Musculoskeletal: Normal shoulder inspection, mild tenderness in anterior and posterior shoulder, forward flexion to 120-130 degrees without pain, abduction to 90 degrees bilaterally with mild discomfort, 5/5 strength with belly press and lift-off tests, mildly positive Good test. Results - Imaging: X-ray shows arthritic changes in the shoulder. Procedure Plan The plan for the patient includes initiating a course of physical therapy to address the internal derangement and impingement syndrome of the shoulder. Physical therapy is expected to improve range of motion and strengthen the shoulder, potentially alleviating symptoms. If symptoms persist after four to six weeks of physical therapy, further evaluation with an MRI may be considered to assess for any tears or surgical needs. A steroid injection may also be considered if inflammation persists despite physical therapy. Patient was informed and verbally consented to the use of an ambient scribe for clinic note documentation during this visit. Discussion Notes I discussed with the patient the potential diagnoses of rotator cuff involvement, shoulder arthritis, and impingement syndrome. We reviewed the conservative management options, including physical therapy and the possibility of a steroid injection if symptoms persist. I explained that an MRI could be considered if symptoms do not improve with conservative treatment, to evaluate for any tears or surgical needs. The patient agreed to start with physical therapy and will follow up if symptoms persist. Patient Instructions - Start physical therapy as scheduled to improve shoulder function. - Perform prescribed exercises daily at home. - Follow up if symptoms persist after four to six weeks of therapy. - Consider MRI or steroid injection if symptoms do not improve. Orders: Orders XR shoulder LT min 2V Today M25.512 - Pain in left shoulder Coding Level of Care Code New Pt Level 3 (18360) Diagnoses Internal derangement of left shoulder M24.812
== END 2024-09-20 11:38 | disposition home or self-care (01) ==
LOC: HO.HOS 11:11
PROVIDERS: PCP Family Medicine; Visit Provider Physician Assistant
DX: M24.812 Other specific joint derangements of left shoulder, not elsewhere classified (principal)
CPT/HCPCS: 99203

== ENCOUNTER → 2024-09-20 11:12 | Outpatient (BNV) | payer OTHER, SELFPAY | PROVIDERS: Visit Provider General Practice | DX: M25.512 Pain in left shoulder (principal) | CPT/HCPCS: 73030 ==

== ENCOUNTER 2024-10-25 14:02 | Outpatient (RCR) | payer OTHER, SELFPAY | END 2025-03-03 10:45 | disposition home or self-care (01) | LOC: HO.PT 14:02 | PROVIDERS: PCP Family Medicine; Visit Provider Internal Medicine | DX: M25.512 Pain in left shoulder (principal) | CPT/HCPCS: 97014; 97110; 97140; 97161; 97530 ==

== ENCOUNTER 2025-01-13 07:55 | Outpatient (AMB) | payer OTHER, SELFPAY ==
--- OUTSIDE RECORDS SUMMARY | 2025-01-13 07:57 | XMS_ITS | Encounter Summary ---
Author Organization [facility] Address [address] [place] [address] Phone Care Team Providers Care Fish Peddler Name Role Phone Kacey Richardson Primary Care Prov ider Encounter Details Date Type Department Care Team (Latest Contact Info) Description 04/03/2023 Transcribe Orders Virtual Department [address] [place] [address] Daniel Colin MD [address] [place] [address] [address] [place] [address] Breast screening (Primary Dx) Social History Tobacco Use Types Packs/Day Years Used Date Smoking Tobacco: Former Cigarettes 0.3 10 Smokeless Tobacco: Former Alcohol Use Standard Drinks/Week Comments Yes 2 (1 standard drink = 0.6 oz pur e alcohol) daily 2 Education Answer Date Recorded Are you interested in more education? Not on myrna e 07/07/2022 Are you concerned about learning? Not on file 07/07/2022 No 07/07/2022 No 07/07/2022 Digital Access Answer Date Recorded No 08/08/2022 No 08/08/2022 Reliable internet access at home? Not on file 08/08/2022 Device with a working camera? Not on file Comments No Sex and Gender Information Value Date Recorded Sex Assigned at Female 12/14/2020 11:27 AM EDT Legal Sex Female 7:14 PM EST Gender Identity Female 12/14/2020 11:27 AM EDT Sexual Orientation Choose not to disclose 2020 11:27 AM EDT documented as of this encounter Plan of Treatment Not on file documented as of this encounter Results * BI MAMMOGRAM SCREENING WITH TOMOSYNTHESIS WITH CAD (BILATERAL) (03/25/2024 3:58 PM EST) Anatomical Region Laterality Modality Breast Left, Breast Right, Breast Bilateral Bila teral Mammography 03/26/2024 12:3 0 PM EST Impressions 03/26/2024 12:36 PM EST No mammographic evidence of malignancy in either breast. Annual screening mammography is recommended. BI-RADS 1 NEGATIVE The patient will be notified of the results and recommendations. Narrative 03/26/2024 12:36 PM EST BI MAMMOGRAM SCREENING WITH TOMOSYNTHESIS WITH CAD (BILATERAL) Additional patient information: Screening. COMPARISON: Comparison is made with relevant prior imaging. Breast composition: The breast tissue is heterogeneously dense which may obscure small masses. FINDINGS: No abnormal masses, suspicious calcifications, or other significant findings are identified mammographically in either breast. Procedure Note Adama Weaver MD, PhD - 03/26/2024 BI MAMMOGRAM SCREENING WITH TOMOSYNTHESIS WITH CAD (BILATERAL) Additional patient information: Screening. COMPARISON: Comparison is made with relevant prior imaging. Breast composition: The breast tissue is heterogeneously dense which mayobscure small masses. FINDINGS: No abnormal masses, suspicious calcifications, or other significantfindings are identified mammographically in either breast. IMPRESSION: No mammographic evidence of malignancy in either breast. Annual screening mammography is recommended. BI-RADS 1 NEGATIVE The patient will be notified of the results and recommendations. us Daniel Colin MD IMG MG EXAMS Final Resu lt documented in this encounter Visit Diagnoses Diagnosis Breast screening- Primary Breast screening, unspecified Breast screening Breast screening, unspecified documented in this encounter Care Teams Fish Peddler Relationship Specialty Start Date End Date Kacey Richardson PA [address] [place] [address] PCP - General Physician Wax Pourer 01/11/23 documented as of this encounter Additional Source Comments The information contained in this document represents components of the legal health record. It is not the complete legal health record.[facility]
--- OUTSIDE RECORDS SUMMARY | 2025-01-13 07:57 | XMS_ITS | Encounter Summary ---
Author Organization [facility] Address [address] [place] [address] Phone Care Team Providers Care Zipper Repairer Name Role Phone Jordan Olivas MD Primary Care Provider [phone] Kacey Richardson Primary Care Prov ider Encounter Details Date Type Department Care Team (Late st Contact Info) Description 12/20/2021 Procedure Pass [facility], [facility] [address] [place] [address] Social History Tobacco Use Types Packs/Day Years Used Date Smoking Tobacco: Former Cigarettes 0.3 10 Smokeless Tobacco: Former Alcohol Use Standard Drinks/Week Comments Yes 2 (1 standard drink = 0.6 oz pur e alcohol) daily 2 Comments No Sex and Gender Information Value Date Recorded Sex Assigned at Female 12/14/2020 11:27 AM EDT Legal Sex Female 7:14 PM EST Gender Identity Female 12/14/2020 11:27 AM EDT Sexual Orientation Choose not to disclose 2020 11:27 AM EDT documented as of this encounter Plan of Treatment Not on file documented as of this encounter Visit Diagnoses Not on filedocumented in this encounter Care Teams Zipper Repairer Relationship Specialty Start Date End Date Jordan Olivas MD [address] [facility] [address] [place] [address] [email or web address] PCP - General Family Medicine 07/31/17 01/10/23 Kacey Richardson PA [facility] [place] [address] PCP - General Physician Nursing Informatics Clinical Analyst 01/11/23 documented as of this encounter Additional Source Comments The information contained in this document represents components of the legal health record. It is not the complete legal health record.[facility]
--- OUTSIDE RECORDS SUMMARY | 2025-01-13 07:57 | XMS_ITS | Encounter Summary ---
Author Organization [facility] Address [address] [place] [address] Phone Care Team Providers Care Contracts Administrator Name Role Phone Kacey Richardson Primary Care Prov ider Encounter Details Date Type Department Care Team (Late st Contact Info) Description 10/20/2023 Procedure Pass [facility], Ct Scan - [facility] [address] [place] [address] Social History Tobacco Use Types Packs/Day Years [...] on filedocumented in this encounter Care Teams Contracts Administrator Relationship Specialty Start Date End Date Kacey Richardson PA [address] [place] [address] PCP - General Physician Janitorial Cleaner 01/11/23 documented as of this encounter Additional Source Comments The information contained in this document represents components of the legal health record. It is not the complete legal health record.[facility]
--- OUTSIDE RECORDS SUMMARY | 2025-01-13 07:57 | XMS_ITS | Encounter Summary ---
Author Organization [facility] Address [address] [place] [address] Phone Care Team Providers Care Asphalt Plant Operator Name Role Phone Kacey Richardson Primary Care Prov ider Encounter Details Date Type Department Care Team (Late st Contact Info) Description 04/03/2023 Procedure Pass [facility], [facility] [address] [place] [address] Social History Tobacco Use Types Packs/Day Years [...] on filedocumented in this encounter Care Teams Asphalt Plant Operator Relationship Specialty Start Date End Date Kacey Richardson PA [address] [place] [address] PCP - General Physician Assistant Terminal Manager 01/11/23 documented as of this encounter Additional Source Comments The information contained in this document represents components of the legal health record. It is not the complete legal health record.[facility]
--- OUTSIDE RECORDS SUMMARY | 2025-01-13 07:57 | XMS_ITS | Encounter Summary ---
Author Organization [facility] Address [address] [facility] [address] [place] [address] Phone Care Team Providers Care Primary Care Nurse Name Role Phone Farzad Haskins MD Unavailable [phone] Fatoumata Ribeiro NP Unavailable [phone] Maura Diego MD Unavailable [phone] Jordan Olivas MD Primary Care Provider [phone] Kacey Richardson Primary Care Prov ider Encounter Details Date Type Department Care Team (Late st Contact Info) Description 05/02/2019 Procedure Pass [facility] Admitting Dept Virtual Department [address] [place] [address] Social History Tobacco Use Types Packs/Day Years [...] on filedocumented in this encounter Care Teams Primary Care Nurse Relationship Specialty Start Date End Date Jordan Olivas MD [address] [facility] [address] [place] [phone] [email or web address] PCP - General Family Medicine 07/31/17 01/10/23 Kacey Richardson PA [address] [place] [address] jose [email or web address] PCP - General Physician Manager Wholesale 01/11/23 Farzad Haskins MD [address] [place] [address] [email or web address] Historical LMR Provider 12/28/16 03/20/21 Fatoumata Ribeiro NP [address] [place] [address] Historical LMR Provider 12/28/16 2 Maura Diego MD [address] [place] [address] Orthopedics & Sports Medicine, [facility] [place] [address] [email or web address] Historical LMR Provider 12/28/16 03/20/21 documented as of this encounter Additional Source Comments The information contained in this document represents components of the legal health record. It is not the complete legal health record.[facility]
--- OUTSIDE RECORDS SUMMARY | 2025-01-13 07:57 | XMS_ITS | Encounter Summary ---
Author Organization [facility] Address [address] [facility] [address] [place] [address] Phone Care Team Providers Care Novelty Worker Name Role Phone Farzad Haskins MD Unavailable [phone] Fatoumata Ribeiro NP Unavailable [phone] Maura Diego MD Unavailable [phone] Jordan Olivas MD Primary Care Provider Kacey Richardson Primary Care Prov ider Encounter Details Date Type Department Care Team (Late st Contact Info) Description 01/14/2020 Ancillary Orders [facility] at [address] [address] Kacey Richardson PA [address] [place] [address] alessandra Breast screening Social History Tobacco Use Types Packs/Day Years [...] MAMMOGRAM SCREENING WITH TOMOSYNTHESIS WITH CAD (BILATERAL) (03/11/2020 3:41 PM EST) Anatomical Region Laterality Modality Breast Left, Breast Right, Breast Bilateral Bila teral Mammography 03/11/2020 3:48 PM EST Impressions 03/11/2020 3:53 PM EST No mammographic evidence of malignancy. Recommend routine annual surveillance. BI-RADS CATEGORY: 1 - Negative. DENSITY: The breast tissue is heterogeneously dense, which could obscure a lesion on mammography. Narrative 03/11/2020 3:53 PM EST 49-year-old female with no current breast symptoms. Comparison made to previous on 08/15/2018 and as far back as 03/26/2012. Interpretation made in conjunction with computer-aided detection and tomosynthesis. The breasts are heterogeneously dense, which may obscure small masses. There are no suspicious masses, areas of architectural distortion, or suspicious clusters of microcalcifications. Procedure Note Nacho Sheffield MD - 03/11/2020 49-year-old female with no current breast symptoms. Comparison made toprevious on 08/15/2018 and as far back as 03/26/2012. Interpretation made inconjunction with computer-aided detection and tomosynthesis. The breasts are heterogeneously dense, which may obscure small masses. There are no suspicious masses, areas of architectural distortion, orsuspicious clusters of microcalcifications. IMPRESSION: No mammographic evidence of malignancy. Recommend routine annualsurveillance. BI-RADS CATEGORY: 1 - Negative. DENSITY: The breast tissue is heterogeneously dense, which could obscurea lesion on mammography. Kacey QUINONES IMG MG EXAMS Fi nal Result documented in this encounter Visit Diagnoses Diagnosis Breast screening Breast screening, unspecified Breast screening Breast screening, unspecified documented in this encounter Care Teams Novelty Worker Relationship Specialty Start Date End Date Jordan Olivas MD [address] [facility] [address] [place] [phone] [email or web address] PCP - General Family Medicine 07/31/17 01/10/23 Kacey Richardson PA [address] [place] [address] jose [email or web address] PCP - General Physician Electronics Mechanic Apprentice 01/11/23 Farzad Haskins MD [address] [place] [address] [email or web address] Historical LMR Provider 12/28/16 03/20/21 Fatoumata Ribeiro NP [address] [place] [address] Historical LMR Provider 12/28/16 2 Maura Diego MD [address] [place] [address] Orthopedics & Sports Medicine, [place] [address] Historical LMR Provider 12/28/16 03/20/21 documented as of this encounter Additional Source Comments The information contained in this document represents components of the legal health record. It is not the complete legal health record.[facility]
--- OUTSIDE RECORDS SUMMARY | 2025-01-13 07:57 | XMS_ITS | Encounter Summary ---
Author Organization [facility] Address [address] [facility] [address] [place] [address] Phone Care Team Providers Care Voltage Tester Name Role Phone Kacey Richardson Primary Care Prov ider Encounter Details Date Type Department Care Team (Latest Contact Info) Description 10/20/2023 Transcribe Orders Virtual Department [address] [place] [address] Eli Mccallum MD [address] [place] [address] [email or web address] LLQ pain (Primary Dx) Social History Tobacco Use Types [...] documented as of this encounter Visit Diagnoses Diagnosis LLQ pain- Primary Abdominal pain, left lower quadrant documented in this encounter Care Teams Voltage Tester Relationship Specialty Start Date End Date Kacey Richardson PA [address] [place] [address] PCP - General Physician Smoke Eater 01/11/23 documented as of this encounter Additional Source Comments The information contained in this document represents components of the legal health record. It is not the complete legal health record.[facility]
--- OUTSIDE RECORDS SUMMARY | 2025-01-13 07:57 | XMS_ITS | Encounter Summary ---
Author Organization [facility] Address [address] [facility] [address] [place] [address] Phone Care Team Providers Care Concrete Tile Machine Operator Name Role Phone Kacey Richardson Primary Care Prov ider Reason for Referral * MRI/CAT Scan - Closed Specialty Diagnoses / Procedures Referred By Rajesh rubio Referred To Contact Radiology Diagnoses LLQ pain Procedures CT Abdomen/Pelvis CT Abdomen/Pelvis CHG CT SCAN,ABDOMENT AND PELVIS,W CONTRAST CHG CT SCAN,ABDOMENT AND PELVIS,COMBO Eli Mccallum MD Phone: tel: fax: [email or web address] Referral ID Status Reason Start Date Expiration Date Visits Re quested Visits Authorized [id number] Closed 10/20/2023 12/18/2023 1 1 Encounter Details Date Type Department Care Team (Late st Contact Info) Description 10/26/2023 Ancillary Orders Virtual Department [address] [place] [address] Eli Mccallum MD [address] [place] [address] [email or web address] LLQ pain (Primary Dx) Social History Tobacco [...] documented as of this encounter Results * CT ABDOMEN/PELVIS WITH CONTRAST (10/23/2023 12:55 PM EDT) Anatomical Region Laterality Modality Abdomen, Pelvis Computed Tomogra phy Impressions 10/25/2023 11:58 AM EDT 1. Uncomplicated focal descending colonic diverticulitis without evidence of extraluminal abscess. 2. Hepatic cysts. Narrative 10/25/2023 11:[address] ABDOMEN/PELVIS WITH CONTRAST Referring clinician's provided indication for this examination in Epic: Outside Radiology Order; llq pain TECHNIQUE: Multidetector-row CT of the abdomen and pelvis was performed after administration of intravenous contrast using tailored dose modulation techniques. Images were reconstructed in the axial, coronal, and sagittal planes. COMPARISON: None FINDINGS: Lower Chest: No confluent airspace infiltrate or pleural effusion. Liver: Multiple hepatic cysts, largest of which is bilobed measuring 3.5 x 2.4 cm in the medial segment left lobe. No solid enhancing mass identified. Biliary: No evidence of biliary obstruction. No cholelithiasis demonstrated. Spleen: No splenomegaly or focal lesion. Pancreas: No pancreatic mass, duct dilatation, or peripancreatic inflammatory infiltration. Adrenal Glands: No nodules. Kidneys/Ureters: Small left lower pole cortical cyst. No parenchymal mass, hydronephrosis, or nephrolithiasis apparent. Bowel: Prominent residual food stuffs in the stomach. No evidence of small bowel obstruction. Colon is stool and gas-filled and nonopacified with scattered distal descending and proximal sigmoid diverticula, one or two of which in the distal descending colon appear to be inflamed with surrounding fat stranding but no evidence of free air or drainable extraluminal abscess. Peritoneum/Retroperitoneum: No free fluid or mass. Lymph Nodes: No pathologically enlarged mesenteric, para-aortic, iliac chain, or inguinal nodes apparent. Pelvic Organs/Bladder: No free fluid. Bladder unremarkable. No gross uterine or adnexal enlargement. Vessels: No evidence of aortoiliac aneurysm. HEENT trunks of the SMA and celiac axis appear patent. Main portal vein grossly patent. Bones/Soft Tissues: No abdominal wall mass or bowel containing hernia. No traumatic or destructive skeletal lesions. Lumbar scoliosis and degenerative facet arthropathy. Eli Mccallum MD IMG CT ABD/PELVIS Edited Result - Final documented in this encounter Visit Diagnoses Diagnosis LLQ pain Abdominal pain, left lower quadrant LLQ pain- Primary Abdominal pain, left lower quadrant documented in this encounter Care Teams Concrete Tile Machine Operator Relationship Specialty Start Date End Date Kacey Richardson PA [address] [place] [address] PCP - General Physician Rehabilitation Case Coordinator 01/11/23 documented as of this encounter Additional Source Comments The information contained in this document represents components of the legal health record. It is not the complete legal health record.[facility]
--- OUTSIDE RECORDS SUMMARY | 2025-01-13 07:57 | XMS_ITS | Encounter Summary ---
Author Organization [facility] Address [address] [facility] [address] [place] [address] Phone Care Team Providers Care Adjunct Nursing Faculty Name Role Phone Farzad Haskins MD Unavailable [phone] Fatoumata Ribeiro NP Unavailable [phone] Maura Diego MD Unavailable [phone] Jordan Olivas MD Primary Care Provider Kacey Richardson Primary Care Prov ider Encounter Details Date Type Department Care Team (Late st Contact Info) Description 12/14/2020 Procedure Pass [facility], [address] [address] Social History Tobacco Use Types Packs/Day Years [...] on filedocumented in this encounter Care Teams Adjunct Nursing Faculty Relationship Specialty Start Date End Date Jordan Olivas MD [address] [facility] [address] [place] [address] [email or web address] PCP - General Family Medicine 07/31/17 01/10/23 Kacey Richardson PA [address] [place] [address] jose alberto PCP - General Physician Machine Edge Bander 01/11/23 Farzad Haskins MD [address] [place] [address] [email or web address] Historical LMR Provider 12/28/16 03/20/21 Fatoumata Ribeiro NP [address] [place] [address] Historical LMR Provider 12/28/16 2 Maura Diego MD [address] [place] [address] Orthopedics & Sports Medicine, [place] [address] Historical LMR Provider 12/28/16 03/20/21 documented as of this encounter Additional Source Comments The information contained in this document represents components of the legal health record. It is not the complete legal health record.[facility]
--- OUTSIDE RECORDS SUMMARY | 2025-01-13 07:57 | XMS_ITS | Encounter Summary ---
Author Organization [facility] Address [address] [facility] [address] [place] [address] Phone Care Team Providers Care Art Museum Aide Name Role Phone Farzad Haskins MD Unavailable [phone] Fatoumata Ribeiro NP Unavailable [phone] Maura Diego MD Unavailable [phone] Jordan Olivas MD Primary Care Provider [phone] Kacey Richardson Primary Care Prov ider Encounter Details Date Type Department Care Team (Late st Contact Info) Description 01/14/2020 Procedure Pass [facility], [address] [address] Social History Tobacco Use Types Packs/Day Years [...] on filedocumented in this encounter Care Teams Art Museum Aide Relationship Specialty Start Date End Date Jordan Olivas MD [address] [facility] [address] [place] [address] [email or web address] PCP - General Family Medicine 07/31/17 01/10/23 Kacey Richardson PA [address] [place] [address] jose [email or web address] PCP - General Physician Corporate Manager 01/11/23 Farzad Haskins MD [address] [place] [address] [email or web address] Historical LMR Provider 12/28/16 03/20/21 Fatoumata Ribeiro NP [address] [place] [address] Historical LMR Provider 12/28/16 2 Maura Diego MD [address] [place] [address] Orthopedics & Sports Medicine, [place] [address] Historical LMR Provider 12/28/16 03/20/21 documented as of this encounter Additional Source Comments The information contained in this document represents components of the legal health record. It is not the complete legal health record.[facility]
--- OUTSIDE RECORDS SUMMARY | 2025-01-13 07:57 | XMS_ITS | Encounter Summary ---
Author Organization [facility] Address [address] [place] [address] Phone Care Team Providers Care Unemployment Claims Adjudicator Name Role Phone Kacey Richardson Primary Care Prov ider Encounter Details Date Type Department Care Team (Late st Contact Info) Description 08/14/2023 Procedure Pass [facility], Ct Scan - [facility] [address] [place] [address] Social History Tobacco Use Types Packs/Day Years [...] on filedocumented in this encounter Care Teams Unemployment Claims Adjudicator Relationship Specialty Start Date End Date Kacey Richardson PA [address] [place] [address] PCP - General Physician Nurse Midwife 01/11/23 documented as of this encounter Additional Source Comments The information contained in this document represents components of the legal health record. It is not the complete legal health record.[facility]
--- OUTSIDE RECORDS SUMMARY | 2025-01-13 07:57 | XMS_ITS | Encounter Summary ---
Author Organization [facility] Address [address] [employer] [address] [facility] [address] [place] [address] Phone Care Team Providers Care Bean Dumper Name Role Phone Farzad Haskins MD Unavailable [phone] Fatoumata Ribeiro NP Unavailable [phone] 74 Maura Diego MD Unavailable [phone] Jordan Olivas MD Primary Care Provider [phone] Kacey Richardson Primary Care Prov ider Encounter Details Date Type Department Care Team (Late st Contact Info) Description 06/08/2018 Ancillary Orders Virtual Department [address] [place] [address] Jordan Olivas MD 230 [facility] [address] [place] [phone] [email or web address] Breast screening Social History Tobacco Use Types Packs/Day Years Used Date Smoking Tobacco: Never Assessed Comments Unknown Sex and Gender Information Value Date Recorded [...] MAMMOGRAM SCREENING WITH TOMOSYNTHESIS WITH CAD (BILATERAL) (08/15/2018 7:43 AM EDT) Anatomical Region Laterality Modality Breast Left, Breast Right, Breast Bilateral Bila teral Mammography 08/15/2018 8:19 AM EDT Impressions 08/15/2018 8:21 AM EDT No mammographic evidence of malignancy. BI-RADS CATEGORY: 1 - Negative. DENSITY: The breast tissue is heterogeneously dense, an appearance which lowers the sensitivity of mammography. POS - [id number] Narrative 08/15/2018 8:21 AM EDT Standard digital full-field 2-D C view and two-plane tomographic imaging was performed and compared with multiple prior studies, most recently 08/14/2017, with utilization of computer-aided detection. The breast parenchyma is heterogeneously dense, somewhat limiting mammographic sensitivity. The stromal markings are essentially unchanged in overall appearance and distribution. No dominant spiculated mass, suspicious clustered microcalcifications, or focal zone of pathologic skin thickening or retraction are noted to have arisen in the interim. Procedure Note Jose Valenzuela MD - 08/15/2018 Standard digital full-field 2-D C view and two-plane tomographic imagingwas performed and compared with multiple prior studies, most [id number]/04/2018, with utilization of computer-aided detection. The breast parenchyma is heterogeneously dense, somewhat limitingmammographic sensitivity. The stromal markings are essentially unchangedin overall appearance and distribution. No dominant spiculated mass,suspicious clustered microcalcifications, or focal zone of pathologic skinthickening or retraction are noted to have arisen in the interim. IMPRESSION: No mammographic evidence of malignancy. BI-RADS CATEGORY: 1 - Negative. DENSITY: The breast tissue is heterogeneously dense, an appearance whichlowers the sensitivity of mammography. POS - [id number] Jordan Olivas MD IMG MG EXAMS Final Result documented in this encounter Visit Diagnoses Diagnosis Breast screening Breast screening, unspecified Breast screening Breast screening, unspecified documented in this encounter Care Teams Bean Dumper Relationship Specialty Start Date End Date Jordan Olivas MD 230 [facility] [address] [place] [address] [email or web address] PCP - General Family Medicine 07/31/17 01/10/23 Kacey Richardson PA [address] [place] [address] jose [email or web address] PCP - General Physician Net Mobile Developer 01/11/23 Farzad Haskins MD [address] [place] [address] [email or web address] Historical LMR Provider 12/28/16 03/20/21 Fatoumata Ribeiro NP [address] [place] [address] Historical LMR Provider 12/28/16 2 Maura Diego MD [address] [place] [address] Orthopedics & Sports Medicine, [facility] [place] [address] [email or web address] Historical LMR Provider 12/28/16 03/20/21 documented as of this encounter Additional Source Comments The information contained in this document represents components of the legal health record. It is not the complete legal health record.[facility]
--- OUTSIDE RECORDS SUMMARY | 2025-01-13 07:57 | XMS_ITS | Encounter Summary ---
Author Organization [facility] Address [address] [facility] [address] [place] [address] Phone Care Team Providers Care Jacquard Loom Weaver Name Role Phone Farzad Haskins MD Unavailable [phone] Fatoumata Ribeiro NP Unavailable [phone] Maura Diego MD Unavailable [phone] Jordan Olivas MD Primary Care Provider [phone] Kacey Richardson Primary Care Prov ider Reason for Referral * Consultation (Elective) - Closed Specialty Diagnoses / Procedures Referred By Contkenny t Referred To Contact Pulmonary Disease Jordan Olivas MD Phone: tel: fax: [email or web address] [address] [place] [address] Phone: tel: Referral ID Status Reason Start Date Expiration Date Visits Re quested Visits Authorized [id number] Closed 04/08/2020 04/08/2021 1 1 Encounter Details Date Type Department Care Team ([facility] Contact Info) Description 04/08/2020 Transcribe Orders CD Pulmonary, Allergy and Critical Care Medicine [address] [place], [place] [id number] Jordan Olivas MD [address] [facility] [address] [place] [address] [email or web address] Social History Tobacco Use Types Packs/Day Years [...] as of this encounter Plan of Treatment Scheduled Referrals Name Type Priority Associated Diagnoses Order Schedule Ambulatory referral to [facility] Pulmonology Outpatient Referral Routine Ordered: 04/08/2020 documented as of this encounter Visit Diagnoses Not on filedocumented in this encounter Care Teams Jacquard Loom Weaver Relationship Specialty Start Date End Date Jordan Olivas MD [address] [facility] [address] [place] [address] [email or web address] PCP - General Family Medicine 07/31/17 01/10/23 Kacey Richardson PA [address] [place] [address] [address] [facility] PCP - General Physician Link Cutter 01/11/23 Farzad Haskins MD [address] [place] [address] [email or web address] Historical LMR Provider 12/28/16 03/20/21 Fatoumata Ribeiro NP [address] [place] [address] Historical LMR Provider 12/28/16 2 Maura Diego MD [address] [place] [address] Orthopedics & Sports Medicine, [place] [address] [email or web address] Historical LMR Provider 12/28/16 03/20/21 documented as of this encounter Additional Source Comments The information contained in this document represents components of the legal health record. It is not the complete legal health record.[facility]
--- OUTSIDE RECORDS SUMMARY | 2025-01-13 07:58 | XMS_ITS | Encounter Summary ---
Author Organization [facility] Address [address] [employer] [facility] [address] [place] [address] Phone Care Team Providers Care Fan Balancer Name Role Phone Kacey Richardson Primary Care Prov ider Encounter Details Date Type Department Care Team (Late st Contact Info) Description 01/11/2023 Transcribe Orders Virtual Department 30 [place] [address] Kacey Richardson PA [address] [place] [address] [email or web address] Breast screening (Primary Dx) Social History Tobacco [...] MAMMOGRAM SCREENING WITH TOMOSYNTHESIS WITH CAD (BILATERAL) (03/22/2023 3:52 PM EST) Anatomical Region Laterality Modality Breast Left, Breast Right, Breast Bilateral Bila teral Mammography 03/30/2023 6:13 PM EST Impressions 04/03/2023 12:55 PM EST No mammographic signs of malignancy. Annual screening is recommended. BI-RADS CATEGORY: 2 - Benign finding. DENSITY: There are scattered fibroglandular densities. Narrative 04/03/2023 12:55 PM EST Bilateral mammography is performed in conjunction with computed aided detection. 3-D tomography along with 2-D C view imaging was also performed. Comparison made to previous dated as far back as 07/25/2016 and as recent as 03/21/2022. No suspicious masses, areas of architectural distortion or suspicious microcalcifications. Regionally distributed microcalcifications in the upper outer left breast are stable. Procedure Note Patrick Overton MD - 04/03/2023 Bilateral mammography is performed in conjunction with computed aideddetection. 3-D tomography along with 2-D C view imaging was alsoperformed. Comparison made to previous dated as far back as 07/25/2016 andas recent as 03/21/2022. No suspicious masses, areas of architectural distortion or suspiciousmicrocalcifications. Regionally distributed microcalcifications in theupper outer left breast are stable. IMPRESSION: No mammographic signs of malignancy. Annual screening is recommended. BI-RADS CATEGORY: 2 - Benign finding. DENSITY: There are scattered fibroglandular densities. Kacey QUINONES IMG MG EXAMS Fi nal Result documented in this encounter Visit Diagnoses Diagnosis Breast screening- Primary Breast screening, unspecified Breast screening Breast screening, unspecified documented in this encounter Care Teams Fan Balancer Relationship Specialty Start Date End Date Kacey Richardson PA [address] [place] [address] PCP - General Physician Steam Turbine Operator 01/11/23 documented as of this encounter Additional Source Comments The information contained in this document represents components of the legal health record. It is not the complete legal health record.[facility]
--- OUTSIDE RECORDS SUMMARY | 2025-01-13 07:58 | XMS_ITS | Encounter Summary ---
Author Organization [facility] Address [address] [facility] [address] [place] [address] Phone Care Team Providers Care Job Coaching Name Role Phone Farzad Haskins MD Primary Care Provider [phone] Farzad Haskins MD Unavailable [phone] Fatoumata Ribeiro NP Unavailable [phone] 74 Maura Diego MD Unavailable [phone] Jordan Olivas MD Primary Care Provider [phone] Kacey Richardson Primary Care Prov ider Encounter Details Date Type Department Care Team (Late st Contact Info) Description 05/05/2017 Ancillary Orders Virtual Department [address] [place] [address] Daniel Colin MD [address] [place] [address] [address] [place] [address] Visit for screening mammogram Social History Tobacco Use Types Packs/Day Years [...] MAMMOGRAM SCREENING WITH TOMOSYNTHESIS WITH CAD (BILATERAL) (08/14/2017 3:43 PM EDT) Anatomical Region Laterality Modality Breast Left, Breast Right, Breast Bilateral Bila teral Mammography 08/15/2017 8:44 AM EDT Impressions 08/15/2017 8:48 AM EDT No findings suspicious for malignancy are identified. In the absence of a worrisome palpable abnormality, annual screening mammography is recommended. BI-RADS CATEGORY: 1 - Negative. DENSITY: The breast tissue is heterogeneously dense, an appearance which lowers the sensitivity of mammography. POS [id number] Narrative 08/15/2017 8:48 AM EDT COMPARISON: 03/01/2011 through 07/25/2016 Bilateral 3-D tomosynthesis with 2-D reconstructions in the CC and MLO projection. Computer-aided detection system also utilized. No new mass, asymmetry, architectural distortion or suspicious calcifications have become apparent on either side. Procedure Note Farzad Resendez MD - 08/15/2017 COMPARISON: 03/01/2011 through 07/25/2016 Bilateral 3-D tomosynthesis with 2-D reconstructions in the CC and MLOprojection. Computer-aided detection system also utilized. No new mass, asymmetry, architectural distortion or suspiciouscalcifications have become apparent on either side. IMPRESSION: No findings suspicious for malignancy are identified. In the absence of aworrisome palpable abnormality, annual screening mammography isrecommended. BI-RADS CATEGORY: 1 - Negative. DENSITY: The breast tissue is heterogeneously dense, an appearance whichlowers the sensitivity of mammography. POS CDHMAM2 us Daniel Colin MD IMG MG EXAMS Final Resu lt documented in this encounter Visit Diagnoses Diagnosis Visit for screening mammogram Visit for screening mammogram documented in this encounter Care Teams Job Coaching Relationship Specialty Start Date End Date Farzad Haskins MD [address] [place] [address] [email or web address] PCP - General 09/10/13 07/30/17 Jordan Olivas MD 230 [facility] [address] [place] [address] [email or web address] PCP - General Family Medicine 07/31/17 01/10/23 Kacey Richardson PA [address] [place] [address] jose alberto PCP - General Physician Cut Off Man 01/11/23 Farzad Haskins MD [address] [place] [address] [email or web address] Historical LMR Provider 12/28/16 03/20/21 Fatoumata Ribeiro NP [address] [place] [address] Historical LMR Provider 12/28/16 2 Maura Diego MD [address] [place] [address] Orthopedics & Sports Medicine, [facility] [place] [address] Historical LMR Provider 12/28/16 03/20/21 documented as of this encounter Additional Source Comments The information contained in this document represents components of the legal health record. It is not the complete legal health record.[facility]
--- OUTSIDE RECORDS SUMMARY | 2025-01-13 07:58 | XMS_ITS | Encounter Summary ---
Author Organization [facility] Address [address] [place] [address] Phone Care Team Providers Care Wastewater Treatment Engineer Name Role Phone Kacey Richardson Primary Care Prov ider Encounter Details Date Type Department Care Team (Late st Contact Info) Description 01/11/2023 Procedure Pass [facility], [facility] [address] [place] [address] Social History Tobacco Use Types Packs/Day Years [...] on filedocumented in this encounter Care Teams Wastewater Treatment Engineer Relationship Specialty Start Date End Date Kacey Richardson PA [address] [place] [address] PCP - General Physician Complaint Supervisor 01/11/23 documented as of this encounter Additional Source Comments The information contained in this document represents components of the legal health record. It is not the complete legal health record.[facility]
--- OUTSIDE RECORDS SUMMARY | 2025-01-13 07:58 | XMS_ITS | Clinical Summary ---
Author Organization [facility] Address [address] [place] [address] Phone Care Team Providers Care Material Crew Supervisor Name Role Phone Kacey Richardson Primary Care Prov ider Allergies Active Allergy Reactions Criticality Noted Date Comments Tegretol (Carbamazepine) Hives Medium 03/02/2016 Medications sertraline (ZOLOFT) 50 MG tablet Take 50 mg by mouth daily. Active MULTIVITAMIN ORAL Take 1 tablet by mouth daily. Active buPROPion (WELLBUTRIN XL) 300 MG ER 24 hr tablet 1 tablet once daily Active omeprazole (PRILOSEC) 20 MG capsule Take 20 mg by mouth daily. Active Family History Medical History Relation Comments Hypertension Father Stomach cancer Maternal Grandmother Uterine cancer Maternal Grandmother Hypertension Mother Breast cancer Paternal Aunt 40 Cerebral palsy Paternal Aunt Fibroids Paternal Aunt Diabetes Paternal Grandfather Relation Status Comments Father Maternal Grandmother Mother Paternal Aunt Paternal Grandfather Social History Tobacco Use Types Packs/Day Years Used Date Smoking Tobacco: Former Cigarettes 0.3 10 Smokeless Tobacco: Former Alcohol Use Standard Drinks/Week Comments Yes 2 (1 standard drink = 0.6 oz pur e alcohol) daily 2 Child or Family Care Answer Date Record ed Do you have problems with on e of the following making it difficult for you to work, study, or receive health care? Family care (i.e. spouse, parents, other family) 04/16/2024 Education Answer Date Recorded Are you interested in help w ith more adult education (for example, completing high school, GED, job training, learning the Polish language, technical skills, or developing parenting skills)? No 04/16/2024 Are you concerned about learning? Not on file 04/16/2024 No 04/16/2024 Yes 04/16/2024 Food Answer Date Recorded Within the past 6 months we worried whether our food would run out before we got money to buy more. Never True 04/16/2024 Within the past 6 months the food we bought just didn't last and we didn't have enough money to get more. Never True Residential Stability Answer Date Recor ded What is your housing situation today? I have zenaida sing 04/16/2024 How many times have you move d in the past 12 months? Zero (I did not move) 04/16/2024 Paying for Meds Answer Date Recorded Do you have trouble paying for medicines? No 04/16/2024 Paying Utility Bills Answer Date Record ed Do you have trouble paying your heating or elect ricity bill? No 04/16/2024 Transportation Answer Date Recorded Has the lack of transportati on kept you from medical appointments or from getting medications? No 04/16/2024 Digital Access Answer Date Recorded No 04/16/2024 Yes 04/16/2024 Do you have reliable internet access at home? Ye s 04/16/2024 Do you have a device (e.g., phone, tablet, computer) with a working camera? Yes 04/16/2024 Comments No Sex and Gender Information Value Date Recorded Sex Assigned at Female 12/14/2020 11:27 AM EDT Legal Sex Female 7:14 PM EST Gender Identity Female 12/14/2020 11:27 AM EDT Sexual Orientation Choose not to disclose 2020 11:27 AM EDT Last Filed Vital Signs Vital Sign Reading Time Taken Comments Blood Pressure 130/92 05/02/2019 1:11 PM EST Pulse 67 05/02/2019 11:00 AM EST Temperature 36 C (96.8 F) 05/02/2019 12:52 PM EST Respiratory Rate 11 05/02/2019 11:00 AM EST Oxygen Saturation 100% 05/02/2019 1:11 PM EST Inhaled Oxygen Concentration - - Weight 86.2 kg (190 lb) 05/02/2019 11:00 AM EST Height 165.1 cm (5' 5 ) 05/02/2019 11:00 AM EST Body Mass Index 31.62 05/02/2019 11:00 AM EST Plan of Treatment Health Maintenance Due Date Last Done Comments LIPID PANEL 1970 DEPRESSION SCREENING 1981 SMOKING Hx and SMOKELESS TOBACCO SCREENING 1982 HEPATITIS C SCREENING 1987 HIV ONE-TIME SCREENING (18-65 YEARS) 1987 PAP SMEAR 1990 COLOGUARD 2014 FIT TEST 2014 FOBT 2014 SIGMOIDOSCOPY 2014 VIRTUAL COLONOSCOPY 2014 PNEUMOCOCCAL VACCINES (50+ years) (1 of 1 - PCV) 2019 ZOSTER VACCINES (1 of 2) 2019 INFLUENZA VACCINE (#1) 2024 , 01/08/2020, 12/26/2018, Additional history exists COVID-19 VACCINE ( season) 2024 03/24/2020, 03/02/2020 MAMMOGRAM 03/25/2026 03/25/2024, 03/13, 03/21/2022, Additional history exists COLONOSCOPY 05/02/2029 05/02/2019 COLORECTAL CANCER SCREENING 05/02/2029 Adult Td,Tdap Booster 03/12/2030 03/12/2020, 010 RSV VACCINE (1 - 1-dose 75+ series) 2044 HEPATITIS A VACCINES Aged Out No long er eligible based on patient's age to complete this topic HIB VACCINES Aged Out No longer eligi ble based on patient's age to complete this topic MENINGOCOCCAL VACCINES (ACWY) Aged Out No longer eligible based on patient's age to complete this topic MENINGOCOCCAL VACCINES (B) Aged Out N o longer eligible based on patient's age to complete this topic Medical Devices Not on file Procedures Procedure Name Priority Date/Time Associated Diagnosis Comments BI MAMMOGRAM SCREENING WITH TOMOSYNTHESIS WITH CAD (BILATERAL) Routine 03/25/2024 3:58 PM EST Breast screening ENDOSCOPY, COLON 05/02/2019 12:2 4 PM EST from Last 3 Months or Most Recently Relevant to Health Maintenance Results * BI MAMMOGRAM SCREENING WITH TOMOSYNTHESIS [...] MD IMG MG EXAMS Final Resu lt * ENDOSCOPY, COLON (05/02/2019 12:24 PM EST) Narrative Transcriptions Jose Elizalde MD - 05/02/2019 12:24 PM EST Patient Name: Raina Isatu Attending MD:: JOSE ELIZALDE MD Procedure Date: 05/02/2019 12:24 PM Date of : 1970 Age: 49 Admit Type: Outpatient Gender: Female Room: [place] [address] Referring MD: Jordan Olivas MD Exam Type: Colonoscopy Indications: Screening for colorectal malignant neoplasm, This isthe patient's first colonoscopy Medications: Monitored Anesthesia Care Procedure: Informed consent was obtained from the patient after discussion of the indications, limitations,alternatives, benefits, and risks of the procedure. Risksspecifically discussed include but are not limited to medication reactions, missed lesions, bleeding, perforation, orthe need for emergent surgery. Throughout the procedure, the patient's blood pressure, pulse, end-tidal CO2, and oxygen saturations were monitored continuously. The Olympus adult variable colonoscope [id number] #4 was introduced through the anus and advanced to the cecum, identified by appendiceal orifice and ileocecal valve.The colonoscopy was technically difficult and complex dueto significant looping and a tortuous colon. Successful completion of the procedure was aided by applying abdominal pressure. The patient tolerated theprocedure. The quality of the bowel preparation was good. Complications: No immediate complications. Estimated blood loss:None. Findings: The perianal and digital rectal examinations werenormal. Pertinent negatives include normal sphincter tone. Many small-mouthed diverticula were found in thesigmoid colon and ascending colon. Non-bleeding internal hemorrhoids were found during retroflexion. The hemorrhoids were moderate. The sigmoid colon revealed moderately excessivelooping. The exam was otherwise without abnormality on directand retroflexion views. Impression: - Diverticulosis in the sigmoid colon and in theascending colon. - Non-bleeding internal hemorrhoids. - There was significant looping of the colon. - The examination was otherwise normal on direct and retroflexion views. - No specimens collected. Recommendation: - Repeat colonoscopy in 10 years for screeningpurposes. - High fiber diet. JOSE ELIZALDE MD 05/02/2019 12:53:00 PM This report has been signed electronically. Number of Addenda: 0 Note Initiated On: 05/02/2019 12:24 PM Procedure Code(s): --- Professional --- 25758, Colonoscopy, flexible; diagnostic, including collection of specimen(s) by brushing or washing, when performed (separateprocedure) --- Technical --- 96700, Colonoscopy, flexible; diagnostic, including collection of specimen(s) by brushing or washing, when performed (separateprocedure) Diagnosis Code(s): --- Professional --- Z12.11, Encounter for screening for malignant neoplasm of colon K64.8, Other hemorrhoids K57.30, Diverticulosis of large intestine without perforation orabscess without bleeding --- Technical --- Z12.11, Encounter for screening for malignant neoplasm of colon K64.8, Other hemorrhoids K57.30, Diverticulosis of large intestine without perforation orabscess without bleeding CPT copyright 2018 [employer]. All rights reserved. The codes documented in this report are preliminary and upon luncheonette operator reviewmay be revised to meet current compliance requirements. Procedure Date: 05/02/2019 12:24:42 PM [address] [place] [address] Jordan Olivas MD GI PROCEDURE ORDERABLES Final Re sult from Last 3 Months or Most Recently Relevant to Health Maintenance Insurance [employer]UE [employer]EF[employer]MINISTRAT[employer] test company BENEFITS ADMINISTRATORS [email or web address]EF[employer]MINISTRAT[email or web address]EF[employer]MINISTRAT[email or web address] Care Teams Material Crew Supervisor Relationship Specialty Start Date End Date Kacey Richardson [place] [facility] [place] [address] PCP - General Physician Quality Control Director 01/11/23 Additional Source Comments The information contained in this document represents components of the legal health record. It is not the complete legal health record.[facility]
[2025-01-13 08:00] VITALS: BMI 29.0
--- NOTE | 2025-01-13 08:00 | MHC.OFFVIS ---
Vital Signs 01/13/25 08:00 Height 5 ft 6 in Weight 180 lb BMI 29.0 Intake Visit Reasons: Rt foot pain Intake Note: Raina is a 54 year old female who presents today as a new patient for an evaluation of her right foot pain. Pt states the pain has been going on for about 10 years and she was seen by a previous online program coordinator in [place] where they had administered injections, trigger point massage, correct toes, supportive shoe wear. Allergies carbamazepine (From Tegretol) Allergy (Mild, Verified 01/13/25 08:00) Hives HPI HPI Rt foot pain: Details: 54-year-old female with past medical history of diverticulitis presents for chronic right foot pain. The patient states she has had the pain for at least 10 years, starting after she was running at inclines and doing a lot of forefoot running. Pain is present when ambulating, usually present after increased activity. She describes it as a burning and occasional sharp intermittent pain. Denies numbness. She has not been able to run due to her pain for the past 10 years. She has seen other podiatrists in the past, where she received x-rays, orthotics, metatarsal pads, calf stretching/treatment, and injections to her PT tendon and forefoot. As per medical note review, the patient had left foot pain as well, however patient denies left foot pain today. [facility] Medical History Trigeminal neuralgia HTN (hypertension) Surgical History H/O sinus surgery H/O tubal ligation Hx of colposcopy with cervical biopsy Hx of colonoscopy History of esophagogastroduodenoscopy (EGD) Family History Father HTN (hypertension) Mother HTN (hypertension) Sister HTN (hypertension) Paternal Aunt Breast cancer Social History (Updated 09/20/24 @ 11:23 by LIZZ Vela) Household Members: Spouse Household Members Other:: mother Housing: House Alcohol intake: current Alcohol intake frequency: a few times a month Alcohol type: wine Patient Tobacco Use Status: Never used Tobacco Current occupational status: employed 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 No pedal edema. Derm: Hyperkeratotic lesion right foot sub 2nd and 3rd metatarsal, left foot sub 2nd metatarsal. No clinical signs of infection. Neuro: Protective sensation grossly intact to bilateral lower extremities MSK: No pain on forefoot squeeze. Negative Ivory's click. No pain on palpation of the sub 2/3 metatarsal region bilateral feet. Normal arch type on weight-bearing. Mild (2 degree) heel valgus right foot. Both heels invert on double heel rise. Ankle dorsiflexion 5 degrees on knee extension, 10 degrees on knee flexion. No pain on palpation of the Achilles tendon or the posterior tibial tendon. Gait: No early heel rise, equal & symmetric. Assessment & Plan Assessment & Plan (1) Metatarsalgia of both feet: Code(s): M77.41 - Metatarsalgia, right foot; M77.42 - Metatarsalgia, left foot Category: Medical Plan: Referred for bilateral feet x-rays, weight-bearing Referred for MRI to rule out neuroma. The patient requires an MRI due to the chronicity of her symptoms. The patient has had symptoms for over 10 years and may require surgical treatment. She has failed several conservative treatment options including working with multiple other providers, injections, and shoe wear modifications. Recommended wide supportive shoe-wear, metatarsal pads. Follow up in 1 month Orders: Orders XR Foot Marquis 3V Today M77.41 - Metatarsalgia, right foot, M77.42 - Metatarsalgia, left foot MR foot RT wo/w con Today D36.10 - Benign neoplasm of peripheral nerves and autonomic nervous system, unspecified Coding Level of Care Code New Pt Level 4 (50175) Diagnoses Metatarsalgia of both feet M77.41; M77.42 Time Spent (min) 35
== END 2025-01-13 08:18 | disposition home or self-care (01) ==
LOC: HO.HPODS 07:56
PROVIDERS: PCP Family Medicine; Visit Provider Student in an Organized Health Care Education/Training Program
DX: M77.41 Metatarsalgia, right foot (principal); M77.42 Metatarsalgia, left foot
CPT/HCPCS: 99204

== ENCOUNTER → 2025-01-31 08:10 | Outpatient (BNV) | payer OTHER, SELFPAY | PROVIDERS: Visit Provider Radiology Diagnostic Ultrasound | DX: M71.571 Other bursitis, not elsewhere classified, right ankle and foot (principal) | CPT/HCPCS: 73720 ==

== ENCOUNTER 2025-01-31 08:14 | Outpatient (REF) | payer OTHER, SELFPAY ==
--- NOTE | ~2025-01-31 | MR_ITS ---
EXAMINATION: MR FOOT WITHOUT AND WITH CONTRAST, RIGHT CLINICAL INFORMATION: Rule out third interspace neuroma, pain. COMPARISON: X-ray 12/01/2023 TECHNIQUE: MRI of the right foot was performed before and after the intravenous administration of 8.5 mL Gadavist on a high-field scanner. FINDINGS: SOFT TISSUES: Soft tissue marker positioned plantar to the second MTP joint. There is small first and second intermetatarsal bursitis. There is a focus of low T1, mildly bright T2 signal plantar aspect of the first intermetatarsal space, in the plantar/medial aspect of the second MTP joint. Measures 8 x 9 mm (dorsal-plantar, transverse). Question mild enhancement the postcontrast sequences. (Series 5, 4, 10:20). Differential consideration include neuroma, fibrosis. No definitive mass lesion/neuroma is otherwise identified. There is nonspecific reticular T2 signal in the soft tissues. BONE/JOINTS: Bone alignment is anatomic. No evidence of acute fracture or dislocation. Small first MTP joint effusion. No evidence of aggressive marrow replacing lesion. MUSCLES/TENDONS: Tendons are intact. No appreciable tenosynovitis. No significant edema or atrophy in the intrinsic muscles of foot. LIGAMENTS: Lisfranc ligament is intact. PLANTAR FASCIA: Intact. MR/MR foot RT wo/w con IMPRESSION: 1. Focus of low T1/T2 signal in the first intermetatarsal space, along the plantar/medial aspect of the second MTP joint. Measures 8 x 9 mm. Question mild enhancement of this focus. Differential considerations include neuroma, fibrosis. 2. Small first and second intermetatarsal bursitis. Electronically signed by: Josep Minor MD 01/31/2025 10:14 AM JONELLE
--- OUTSIDE RECORDS SUMMARY | 2025-01-31 08:17 | XMS_ITS | Encounter Summary ---
Author Organization [facility] Address [address] [employer] [facility] [address] [place] [address] Phone Care Team Providers Care Performance Consultant Name Role Phone Farzad Haskins MD Unavailable [phone] Fatoumata Ribeiro NP Unavailable [phone] Maura Diego MD Unavailable [phone] Jordan Olivas MD Primary Care Provider [phone] Kacey Richardson Primary Care Prov ider Encounter Details Date Type Department Care Team (Late st Contact Info) Description 05/02/2019 Procedure Pass [facility] Endoscopy Admitting Dept Virtual Department [address] [place] [address] Social History Tobacco Use Types Packs/Day Years [...] on filedocumented in this encounter Care Teams Performance Consultant Relationship Specialty Start Date End Date Jordan Olivas MD [address] [facility] [address] [place] [address] [email or web address] PCP - General Family Medicine 07/31/17 01/10/23 Kacey Richardson PA [address] [place] [address] jose alberto PCP - General Physician Manager User Interface 01/11/23 Farzad Haskins MD [address] [place] [address] [email or web address] Historical LMR Provider 12/28/16 03/20/21 Fatoumata Ribeiro NP [address] [place] [address] Historical LMR Provider 12/28/16 2 Maura Diego MD [address] [place] [address] Orthopedics & Sports Medicine, [facility] [place] [address] [email or web address] Historical LMR Provider 12/28/16 03/20/21 documented as of this encounter Additional Source Comments The information contained in this document represents components of the legal health record. It is not the complete legal health record.[facility]
--- OUTSIDE RECORDS SUMMARY | 2025-01-31 08:17 | XMS_ITS | Encounter Summary ---
Author Organization [facility] Address [address] [facility] [address] [place] [address] Phone Care Team Providers Care Telesales Team Leader Name Role Phone Kacey Richardson Primary Care Prov ider Encounter Details Date Type Department Care Team (Latest Contact Info) Description 04/03/2023 Transcribe Orders Virtual Department 30 [place] [address] Daniel Colin MD [address] [place] [address] [address] [place] [address] Breast screening (Primary Dx) Social [...] unspecified documented in this encounter Care Teams Telesales Team Leader Relationship Specialty Start Date End Date Kacey Richardson PA [address] [place] [address] PCP - General Physician Sales Engineer Account Manager 01/11/23 documented as of this encounter Additional Source Comments The information contained in this document represents components of the legal health record. It is not the complete legal health record.[facility]
--- OUTSIDE RECORDS SUMMARY | 2025-01-31 08:17 | XMS_ITS | Encounter Summary ---
Author Organization [facility] Address [address] [place] [address] Phone Care Team Providers Care Vascular Sonographer Name Role Phone Kacey Richardson Primary Care Prov ider Encounter Details Date Type Department Care Team (Late st Contact Info) Description 01/11/2023 Procedure Pass [facility], [facility] [address] [place] [address] Social History Tobacco Use Types Packs/Day Years [...] on filedocumented in this encounter Care Teams Vascular Sonographer Relationship Specialty Start Date End Date Kacey Richardson PA [address] [place] [address] PCP - General Physician Archaeologist 01/11/23 documented as of this encounter Additional Source Comments The information contained in this document represents components of the legal health record. It is not the complete legal health record.[facility]
--- OUTSIDE RECORDS SUMMARY | 2025-01-31 08:17 | XMS_ITS | Encounter Summary ---
Author Organization [facility] Address [address] [place] [address] Phone Care Team Providers Care Statistical Clerk Name Role Phone Jordan Olivas MD Primary Care Provider [phone] Kacey Richardson Primary Care Prov ider Encounter Details Date Type Department Care Team (Late st Contact Info) Description 12/20/2021 Procedure Pass [facility], [facility] [address] [place] [address] Social History Tobacco Use Types Packs/Day Years [...] on filedocumented in this encounter Care Teams Statistical Clerk Relationship Specialty Start Date End Date Jordan Olivas MD [address] [facility] [address] [place] [address] [email or web address] PCP - General Family Medicine 07/31/17 01/10/23 Kacey Richardson PA [facility] [place] [address] PCP - General Physician Well Puller 01/11/23 documented as of this encounter Additional Source Comments The information contained in this document represents components of the legal health record. It is not the complete legal health record.[facility]
--- OUTSIDE RECORDS SUMMARY | 2025-01-31 08:17 | XMS_ITS | Encounter Summary ---
Author Organization [facility] Address [address] [facility] [address] [place] [address] Phone Care Team Providers Care Medical Radiation Dosimetrist Name Role Phone Kacey Richardson Primary Care Prov ider Encounter Details Date Type Department Care Team (Latest Contact Info) Description 10/20/2023 Transcribe Orders Virtual Department [address] [place] [address] Eli Mccallum MD [address] [place] [address] [email or web address] LLQ pain (Primary Dx) Social History Tobacco [...] quadrant documented in this encounter Care Teams Medical Radiation Dosimetrist Relationship Specialty Start Date End Date Kacey Richardson PA [address] [place] [address] PCP - General Physician Journeyman Pressman 01/11/23 documented as of this encounter Additional Source Comments The information contained in this document represents components of the legal health record. It is not the complete legal health record.[facility]
--- OUTSIDE RECORDS SUMMARY | 2025-01-31 08:17 | XMS_ITS | Encounter Summary ---
Author Organization [facility] Address [address] [employer] [facility] [address] [place] [address] Phone Care Team Providers Care Mat Cleaning Machine Operator Name Role Phone Farzad Haskins MD Unavailable [phone] Fatoumata Ribeiro NP Unavailable [phone] Maura Diego MD Unavailable [phone] Jordan Olivas MD Primary Care Provider [phone] Kacey Richardson Primary Care Prov ider Encounter Details Date Type Department Care Team (Late st Contact Info) Description 12/14/2020 Procedure Pass [facility], [address] [address] Social History Tobacco Use Types Packs/Day Years [...] on filedocumented in this encounter Care Teams Mat Cleaning Machine Operator Relationship Specialty Start Date End Date Jordan Olivas MD 230 [facility] [address] [place] [address] [email or web address] PCP - General Family Medicine 07/31/17 01/10/23 Kacey Richardson PA [address] [place] [address] jose [email or web address] PCP - General Physician Manufacturing Controls Engineer 01/11/23 Farzad Haskins MD [address] [place] [address] [email or web address] Historical LMR Provider 12/28/16 03/20/21 Fatoumata Ribeiro NP [address] [place] [address] Historical LMR Provider 12/28/16 2 Maura Diego MD [address] [place] [address] Orthopedics & Sports Medicine, [facility] [place] [address] Historical LMR Provider 12/28/16 03/20/21 documented as of this encounter Additional Source Comments The information contained in this document represents components of the legal health record. It is not the complete legal health record.[facility]
--- OUTSIDE RECORDS SUMMARY | 2025-01-31 08:17 | XMS_ITS | Encounter Summary ---
Author Organization [facility] Address [address] [facility] [address] [place] [address] Phone Care Team Providers Care Plant Maintenance Engineer Name Role Phone Farzad Haskins MD Primary Care Provider [phone] Farzad Haskins MD Unavailable [phone] Fatoumata Ribeiro NP Unavailable [phone] Maura Diego MD Unavailable [phone] Jordan Olivas MD Primary Care Provider [phone] Kacey Richardson Primary Care Prov ider Encounter Details Date Type Department Care Team (Late st Contact Info) Description 05/05/2017 Ancillary Orders Virtual Department 30 [place] [address] Daniel Colin MD [address] [place] [address] Drive [address] [place] [address] Visit for screening mammogram Social History Tobacco [...] mammogram documented in this encounter Care Teams Plant Maintenance Engineer Relationship Specialty Start Date End Date Farzad Haskins MD [address] [place] [address] [email or web address] PCP - General 09/10/13 07/30/17 Jordan Olivas MD 230 [facility] [address] [place] [address] [email or web address] PCP - General Family Medicine 07/31/17 01/10/23 Kacey Richardson PA [address] [place] [address] jose alberto PCP - General Physician Cnc Lathe Programmer 01/11/23 Farzad Haskins MD [address] [place] [address] [email or web address] Historical LMR Provider 12/28/16 03/20/21 Fatoumata Ribeiro NP [address] [place] [address] Historical LMR Provider 12/28/16 2 Maura Diego MD [address] [place] [address] Orthopedics & Sports Medicine, [place] [address] Historical LMR Provider 12/28/16 03/20/21 documented as of this encounter Additional Source Comments The information contained in this document represents components of the legal health record. It is not the complete legal health record.[facility]
--- OUTSIDE RECORDS SUMMARY | 2025-01-31 08:17 | XMS_ITS | Encounter Summary ---
Author Organization [facility] Address [address] [employer] [facility] [address] [place] [address] Phone Care Team Providers Care Reaming Machine Operator Name Role Phone Farzad Haskins MD Unavailable [phone] Fatoumata Ribeiro NP Unavailable [phone] Maura Diego MD Unavailable [phone] Jordan Olivas MD Primary Care Provider [phone] Kacey Richardson Primary Care Prov ider Encounter Details Date Type Department Care Team (Late st Contact Info) Description 06/08/2018 Ancillary Orders Virtual Department 30 [place] [address] Jordan Olivas MD [address] [facility] [address] [place] [phone] [email or web address] Breast screening Social History Tobacco Use Types [...] lowers the sensitivity of mammography. POS - [id number] Narrative 08/15/2018 8:21 AM EDT Standard digital [...] and compared with multiple prior studies, most cwwsidow93/04/2018, with utilization of computer-aided detection. The breast [...] whichlowers the sensitivity of mammography. POS - [id number] Jordan Olivas MD IMG MG EXAMS Final Result documented in this encounter Visit Diagnoses Diagnosis Breast screening Breast screening, unspecified Breast screening Breast screening, unspecified documented in this encounter Care Teams Reaming Machine Operator Relationship Specialty Start Date End Date Jordan Olivas MD [address] [facility] [address] [place] [address] [email or web address] PCP - General Family Medicine 07/31/17 01/10/23 Kacey Richardson PA [address] [place] [address] jose alberto PCP - General Physician Veneer Stock Grader 01/11/23 Farzad Haskins MD [address] [place] [address] [email or web address] Historical LMR Provider 12/28/16 03/20/21 Fatoumata Ribeiro NP [address] [place] [address] Historical LMR Provider 12/28/16 2 Maura Diego MD [address] [place] [address] Orthopedics & Sports Medicine, [facility] [place] [address] [email or web address] Historical LMR Provider 12/28/16 03/20/21 documented as of this encounter Additional Source Comments The information contained in this document represents components of the legal health record. It is not the complete legal health record.[facility]
--- OUTSIDE RECORDS SUMMARY | 2025-01-31 08:17 | XMS_ITS | Encounter Summary ---
Author Organization [facility] Address [address] [employer] [facility] [address] [place] [address] Phone Care Team Providers Care Wooden Shade Hardware Installer Name Role Phone Farzad Haskins MD Unavailable [phone] Fatoumata Ribeiro NP Unavailable [phone] Maura Diego MD Unavailable [phone] Jordan Olivas MD Primary Care Provider [phone] Kacey Richardson Primary Care Prov ider Reason for Referral * Consultation (Elective) - Closed Specialty Diagnoses / Procedures Referred By Contkenny t Referred To Contact Pulmonary Disease Jordan Olivas MD Phone: tel: fax: [email or web address] [facility] [address] [place] [address] Phone: tel: Referral ID Status Reason Start Date Expiration Date Visits Re quested Visits Authorized [id number] Closed 04/08/2020 04/08/2021 1 1 Encounter Details Date Type Department Care Team ([facility] Contact Info) Description 04/08/2020 Transcribe Orders CD Pulmonary, Allergy and Critical Care Medicine [address] [place], [place] [id number] Jordan Olivas MD [address] [facility] [place] [address] [email or web address] Social History Tobacco Use Types Packs/Day Years [...] Associated Diagnoses Order Schedule Ambulatory referral to [facility] Pulmonology Outpatient Referral Routine Ordered: 04/08/2020 documented as of this encounter Visit Diagnoses Not on filedocumented in this encounter Care Teams Wooden Shade Hardware Installer Relationship Specialty Start Date End Date Jordan Olivas MD [address] [facility] [address] [place] [address] [email or web address] PCP - General Family Medicine 07/31/17 01/10/23 Kacey Richardson PA [address] [place] [address] jose alberto [facility] PCP - General Physician Appliance Assembler 01/11/23 Farzad Haskins MD [address] [place] [address] [email or web address] Historical LMR Provider 12/28/16 03/20/21 Fatoumata Ribeiro NP [address] [place] [address] Historical LMR Provider 12/28/16 2 Maura Diego MD [address] [place] [address] Orthopedics & Sports Medicine, [place] [address] [email or web address] Historical LMR Provider 12/28/16 03/20/21 documented as of this encounter Additional Source Comments The information contained in this document represents components of the legal health record. It is not the complete legal health record.[facility]
--- OUTSIDE RECORDS SUMMARY | 2025-01-31 08:17 | XMS_ITS | Encounter Summary ---
Author Organization [facility] Address [address] [place] [address] Phone Care Team Providers Care Commissioned Fire Officer Name Role Phone Kacey Richardson Primary Care Prov ider Encounter Details Date Type Department Care Team (Late st Contact Info) Description 10/20/2023 Procedure Pass [facility], [facility] - [facility] [address] [place] [address] Social History Tobacco Use Types Packs/Day Years [...] on filedocumented in this encounter Care Teams Commissioned Fire Officer Relationship Specialty Start Date End Date Kacey Richardson PA [address] [place] [address] PCP - General Physician Conveyor Tender 01/11/23 documented as of this encounter Additional Source Comments The information contained in this document represents components of the legal health record. It is not the complete legal health record.[facility]
--- OUTSIDE RECORDS SUMMARY | 2025-01-31 08:17 | XMS_ITS | Encounter Summary ---
Author Organization [facility] Address [address] [employer] [facility] [address] [place] [address] Phone Care Team Providers Care Web Application Tester Name Role Phone Farzad Haskins MD Unavailable [phone] Fatoumata Ribeiro NP Unavailable [phone] Maura Diego MD Unavailable [phone] Joradn Olivas MD Primary Care Provider Kacey Richardson Primary Care Prov ider Encounter Details Date Type Department Care Team (Late st Contact Info) Description 01/14/2020 Ancillary Orders [facility] at [address] [address] Kacey Richardson PA [address] [place] [address] alessandra Breast screening Social History Tobacco Use [...] unspecified documented in this encounter Care Teams Web Application Tester Relationship Specialty Start Date End Date Jordan Olivas MD 230 [facility] [address] [place] [phone] [email or web address] PCP - General Family Medicine 07/31/17 01/10/23 Kacey Richardson PA [address] [place] [address] jose alberto PCP - General Physician Instrument Shop Supervisor 01/11/23 Farzad Haskins MD [address] [place] [address] [email or web address] Historical LMR Provider 12/28/16 03/20/21 Fatoumata Ribeiro NP [address] [place] [address] Historical LMR Provider 12/28/16 2 Maura Diego MD [address] [place] [address] Orthopedics & Sports Medicine, [place] [address] Historical LMR Provider 12/28/16 03/20/21 documented as of this encounter Additional Source Comments The information contained in this document represents components of the legal health record. It is not the complete legal health record.[facility]
--- OUTSIDE RECORDS SUMMARY | 2025-01-31 08:17 | XMS_ITS | Clinical Summary ---
Author Organization [facility] Address [address] [employer] [address] [place] [address] Phone Care Team Providers Care Human Performance Professor Name Role Phone Kacey Richardson Primary Care [...] high school, GED, job training, learning the Iranian language, technical skills, or developing parenting skills)? [...] 50 Admit Type: Outpatient Gender: Female Room: [place] [address] Referring MD: Jordan Olivas MD Exam Type: [...] monitored continuously. The Olympus adult variable colonoscope [id number] #4 was introduced through the anus and [...] 12:24 PM Procedure Code(s): --- Professional --- 59491, Colonoscopy, flexible; diagnostic, including collection of specimen(s) by brushing or washing, when performed (separateprocedure) --- Technical --- 29147, Colonoscopy, flexible; diagnostic, including collection of specimen(s) [...] perforation orabscess without bleeding CPT copyright 2018 [employer]. All rights reserved. The codes documented in this report are preliminary and upon lamination assembler reviewmay be revised to meet current compliance requirements. Procedure Date: 05/02/2019 12:24:42 PM [address] [place] [address] Jordan Olivas MD GI PROCEDURE ORDERABLES Final Re sult from Last 3 Months or Most Recently Relevant to Health Maintenance Insurance BLUE CROSS BLUE BENEFITS ADMINISTRATORS [employer] ADMINISTRATORS [employer] BENEFITS ADMINISTRATORS [employer] BENEFITS ADMINISTRATORS [employer] BENEFITS ADMINISTRATORS [employer] BENEFITS ADMINISTRATORS Care Teams Human Performance Professor Relationship Specialty Start Date End Date Kacey Richardson PA [facility] [place] [address] PCP - General Physician Paint Mixer Machine 01/11/23 Additional Source Comments The information contained in this document represents components of the legal health record. It is not the complete legal health record.[facility]
--- OUTSIDE RECORDS SUMMARY | 2025-01-31 08:17 | XMS_ITS | Encounter Summary ---
Author Organization [facility] Address [address] [place] [address] Phone Care Team Providers Care Supervisor Road Administrator Name Role Phone Kacey Richardson Primary Care Prov ider Encounter Details Date Type Department Care Team (Late st Contact Info) Description 08/14/2023 Procedure Pass [facility], Ct Scan - [facility] [address] [place] [address] Social History Tobacco Use Types Packs/Day Years [...] on filedocumented in this encounter Care Teams Supervisor Road Administrator Relationship Specialty Start Date End Date Kacey Richardson PA [address] [place] [address] PCP - General Physician Packager Machine 01/11/23 documented as of this encounter Additional Source Comments The information contained in this document represents components of the legal health record. It is not the complete legal health record.[facility]
--- OUTSIDE RECORDS SUMMARY | 2025-01-31 08:17 | XMS_ITS | Encounter Summary ---
Author Organization [facility] Address [address] [facility] [address] [place] [address] Phone Care Team Providers Care Administrative Support Specialist Name Role Phone Kacey Richardson Primary Care Prov ider Reason for Referral * MRI/CAT Scan - Closed Specialty Diagnoses / Procedures Referred By Rajesh rubio Referred To Contact Radiology Diagnoses LLQ pain Procedures CT Abdomen/Pelvis CT Abdomen/Pelvis CHG CT SCAN,ABDOMENT AND PELVIS,W CONTRAST CHG CT SCAN,ABDOMENT AND PELVIS,COMBO Eli cMcallum MD Phone: tel: fax: mailto:[email or web address] Referral ID Status Reason Start Date Expiration Date Visits Re quested Visits Authorized [id number] Closed 10/20/2023 12/18/2023 1 1 Encounter Details Date Type Department Care Team (Late st Contact Info) Description 10/26/2023 Ancillary Orders Virtual Department [address] [place] [address] Eli Mccallum MD [address] [place] [address] [email or web address] LLQ pain (Primary Dx) Social History Tobacco [...] quadrant documented in this encounter Care Teams Administrative Support Specialist Relationship Specialty Start Date End Date Kacey Richardson PA [address] [place] [address] PCP - General Physician Field Auto Appraiser 01/11/23 documented as of this encounter Additional Source Comments The information contained in this document represents components of the legal health record. It is not the complete legal health record.[facility]
--- OUTSIDE RECORDS SUMMARY | 2025-01-31 08:17 | XMS_ITS | Encounter Summary ---
Author Organization [facility] Address [address] [place] [address] Phone Care Team Providers Care Employee'S Representative Name Role Phone Farzad Haskins MD Unavailable [phone] Fatoumata Ribeiro NP Unavailable [phone] Maura Diego MD Unavailable [phone] Jordan Olivas MD Primary Care Provider [phone] Kacey Richardson Primary Care Prov ider Encounter Details Date Type Department Care Team (Late st Contact Info) Description 01/14/2020 Procedure Pass [facility], [address] [address] Social History Tobacco Use Types Packs/Day Years [...] on filedocumented in this encounter Care Teams Employee'S Representative Relationship Specialty Start Date End Date Jordan Olivas MD [address] [facility] [address] [place] [address] [email or web address] PCP - General Family Medicine 07/31/17 01/10/23 Kacey Richardson PA [address] [place] [address] jose alberto PCP - General Physician Dental Hygienist Mobile Coordinator 01/11/23 Farzad Haskins MD [address] [place] [address] [email or web address] Historical LMR Provider 12/28/16 03/20/21 Fatoumata Ribeiro NP [address] [place] [address] Historical LMR Provider 12/28/16 2 Maura Diego MD [address] [place] [address] Orthopedics & Sports Medicine, [facility] [place] [address] Historical LMR Provider 12/28/16 03/20/21 documented as of this encounter Additional Source Comments The information contained in this document represents components of the legal health record. It is not the complete legal health record.[facility]
--- OUTSIDE RECORDS SUMMARY | 2025-01-31 08:17 | XMS_ITS | Encounter Summary ---
Author Organization [facility] Address [address] [place] [address] Phone Care Team Providers Care Oxyacetylene Cutter Name Role Phone Kacey Richardson Primary Care Prov ider Encounter Details Date Type Department Care Team (Late st Contact Info) Description 04/03/2023 Procedure Pass [facility], [facility] [address] [place] [address] Social History Tobacco Use Types Packs/Day Years [...] on filedocumented in this encounter Care Teams Oxyacetylene Cutter Relationship Specialty Start Date End Date Kacey Richardson PA [address] [place] [address] PCP - General Physician Rn Obgyn 01/11/23 documented as of this encounter Additional Source Comments The information contained in this document represents components of the legal health record. It is not the complete legal health record.[facility]
--- OUTSIDE RECORDS SUMMARY | 2025-01-31 08:18 | XMS_ITS | Encounter Summary ---
Author Organization [facility] Address [address] [facility] [address] [place] [address] Phone Care Team Providers Care Rn Ostomy Name Role Phone Kacey Richardson Primary Care Prov ider Encounter Details Date Type Department Care Team (Late st Contact Info) Description 01/11/2023 Transcribe Orders Virtual Department [address] [place] [address] Kacey Richardson PA [address] [place] [address] [email or web address] Breast screening (Primary Dx) Social History [...] unspecified documented in this encounter Care Teams Rn Ostomy Relationship Specialty Start Date End Date Kacey Richardson PA [address] [place] [address] PCP - General Physician Truck Body Repairer 01/11/23 documented as of this encounter Additional Source Comments The information contained in this document represents components of the legal health record. It is not the complete legal health record.[facility]
== END 2025-01-31 08:15 | disposition home or self-care (01) ==
LOC: HO.MRI 08:14
PROVIDERS: Visit Provider Student in an Organized Health Care Education/Training Program
DX: D36.10 Benign neoplasm of peripheral nerves and autonomic nervous system, unspecified (principal)
CPT/HCPCS: 73720; A9585

== ENCOUNTER 2025-02-04 13:24 | Outpatient (AMB) | payer OTHER, SELFPAY ==
[2025-02-04 13:35] VITALS: BMI 29.0
--- NOTE | 2025-02-04 13:35 | A.OFFVIS_ITS ---
Vital Signs 02/04/25 13:35 Height 5 ft 6 in Weight 180 lb BMI 29.0 Intake Visit Reasons: OV: Left shoulder pain Intake Note: Raina is a 54 year old right hand dominant female who presents today for Follow Up of her Left Shoulder Internal Derangement. At her last visit she was advised to start PT. Patient reports PT was worsening her pain. She is interested in a cortisone injection today. Allergies carbamazepine (From Tegretol) Allergy (Mild, Verified 02/04/25 13:37) Hives HPI HPI OV: Left shoulder pain: Details: Raina is a 54 year old right hand dominant female who presents today for Follow Up of her Left Shoulder Internal Derangement. At her last visit she was advised to start PT. Patient reports PT did give her some relief, but not complete. She is interested in a cortisone injection today. [facility] Medical History Trigeminal neuralgia HTN (hypertension) Surgical History H/O sinus surgery H/O tubal ligation Hx of colposcopy with cervical biopsy Hx of colonoscopy History of esophagogastroduodenoscopy (EGD) Family History Father HTN (hypertension) Mother HTN (hypertension) Sister HTN (hypertension) Paternal Aunt Breast cancer Social History (Updated 09/20/24 @ 11:23 by LIZZ Vela) Household Members: Spouse Household Members Other:: mother Housing: House Alcohol intake: current Alcohol intake frequency: a few times a month Alcohol type: wine Patient Tobacco Use Status: Never used Tobacco Current occupational status: employed 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 Office Procedures Joint Inj/Aspir; Non-Pain Clin Joint Injection/Drain Prep: site was prepped using aseptic technique and injection warnings given Procedure: The patient tolerated the procedure well and there was some relief with the local anesthesia Shoulders, Hips, Knees, Shoulder Injection Large joint 43570: Left Shoulder Coding Procedure code (CPT) selection complete Assessment & Plan Assessment & Plan (1) Internal derangement of left shoulder: Code(s): M24.812 - Other specific joint derangements of left shoulder, not elsewhere classified Category: Medical Plan 1. Internal derangement of the left shoulder The risks and benefits of a steroid injection including but not limited to risk of damage to blood vessels, nerves, tendons, infection, skin bleaching, failure to improve symptoms, increased pain, and possible need for further injections or other intervention were discussed with the patient and the patient wishes to proceed with the steroid injection. Once consent was obtained, I aseptically prepped the area over the posterior soft space just below the acromion of the left shoulder. I then injected the area over the lateral epicondyle with a combination of 80 mg dexamethasone and 8 mL of 1% lidocaine. The patient tolerated the procedure well with no complica tions. If the patient continues to experience symptoms over the following few weeks or months, they can make an appointment to return and discuss alternative treatment measures, such as physical therapy. Follow-up prn Coding Level of Care Code Est Pt Level 3 (33383) Diagnoses Internal derangement of left shoulder M24.812 CPT Codes Shoulders, Hips, Knees, - Shoulder Injection Large joint 56103: Left Shoulder ([id number])
--- OUTSIDE RECORDS SUMMARY | 2025-02-04 17:17 | XMS_ITS | Encounter Summary ---
Author Organization [facility] Address [address] [facility] [address] [place] [address] Phone Care Team Providers Care Cloth Edge Singer Name Role Phone Jordan Olivas MD Primary Care Provider [phone] Kacey Richardson Primary Care Prov ider Encounter Details Date Type Department Care Team (Late st Contact Info) Description 12/20/2021 Procedure Pass [facility], [facility] [address] [place] [address] Social History Tobacco Use Types Packs/Day Years [...] on filedocumented in this encounter Care Teams Cloth Edge Singer Relationship Specialty Start Date End Date Jordan Olivas MD [address] [facility] [address] [place] [address] [email or web address] PCP - General Family Medicine 07/31/17 01/10/23 Kacey Richardson PA [facility] [place] [place] [address] PCP - General Physician Atg Architect 01/11/23 documented as of this encounter Additional Source Comments The information contained in this document represents components of the legal health record. It is not the complete legal health record.[facility]
--- OUTSIDE RECORDS SUMMARY | 2025-02-04 17:17 | XMS_ITS | Encounter Summary ---
Author Organization [facility] Address [address] [place] [address] Phone Care Team Providers Care Smearer Name Role Phone Farzad Haskins MD Unavailable [phone] Fatoumata Ribeiro NP Unavailable [phone] Maura Diego MD Unavailable [phone] Jordan Olivas MD Primary Care Provider [phone] Kacey Richardson Primary Care Prov ider Encounter Details Date Type Department Care Team (Late st Contact Info) Description 01/14/2020 Procedure Pass [facility], [address] [address] Social History Tobacco Use Types Packs/Day Years [...] on filedocumented in this encounter Care Teams Smearer Relationship Specialty Start Date End Date Jordan Olivas MD [address] [facility] [address] [place] [address] [email or web address] PCP - General Family Medicine 07/31/17 01/10/23 Kacey Richardson PA [address] [place] [address] jose alberto PCP - General Physician General Foreman 01/11/23 Farzad Haskins MD [address] [place] [address] [email or web address] Historical LMR Provider 12/28/16 03/20/21 Fatoumata Ribeiro NP [address] [place] [address] Historical LMR Provider 12/28/16 2 Maura Diego MD [address] [place] [address] Orthopedics & Sports Medicine, [place] [address] Historical LMR Provider 12/28/16 03/20/21 documented as of this encounter Additional Source Comments The information contained in this document represents components of the legal health record. It is not the complete legal health record.[facility]
--- OUTSIDE RECORDS SUMMARY | 2025-02-04 17:17 | XMS_ITS | Encounter Summary ---
Author Organization [facility] Address [address] [facility] [address] [place] [address] Phone Care Team Providers Care Phlebotomy Instructor Name Role Phone Farzad Haskins MD Unavailable [phone] Fatoumata Ribeiro NP Unavailable [phone] Maura Diego MD Unavailable [phone] Jordan Olivas MD Primary Care Provider [phone] Kacey Richardson Primary Care Prov ider Reason for Referral * Consultation (Elective) - Closed Specialty Diagnoses / Procedures Referred By Contkenny t Referred To Contact Pulmonary Disease Jordan Olivas MD Phone: tel: fax: mailto:[email or web address] [address] [place] [address] Phone: tel: Referral ID Status Reason Start Date Expiration Date Visits Re quested Visits Authorized [id number] Closed 04/08/2020 04/08/2021 1 1 Encounter Details Date Type Department Care Team ([facility] Contact Info) Description 04/08/2020 Transcribe Orders CD Pulmonary, Allergy and Critical Care Medicine [address] [place], [place] [id number] Jordan Olivas MD [address] [facility] [place] [address] [email or web address] Social History Tobacco Use Types Packs/Day Years [...] Associated Diagnoses Order Schedule Ambulatory referral to [facility] Pulmonology Outpatient Referral Routine Ordered: 04/08/2020 documented as of this encounter Visit Diagnoses Not on filedocumented in this encounter Care Teams Phlebotomy Instructor Relationship Specialty Start Date End Date Jordan Olivas MD [address] [facility] [place] [address] [email or web address] PCP - General Family Medicine 07/31/17 01/10/23 Kacey Richardson PA [address] [place] [address] jose alberto [facility] PCP - General Physician Comfort Filler 01/11/23 Farzad Haskins MD [address] [place] [address] [email or web address] Historical LMR Provider 12/28/16 03/20/21 Fatoumata Ribeiro NP [address] [place] [address] Historical LMR Provider 12/28/16 2 Maura Diego MD [address] [place] [address] Orthopedics & Sports Medicine, [place] [address] [email or web address] Historical LMR Provider 12/28/16 03/20/21 documented as of this encounter Additional Source Comments The information contained in this document represents components of the legal health record. It is not the complete legal health record.[facility]
--- OUTSIDE RECORDS SUMMARY | 2025-02-04 17:17 | XMS_ITS | Encounter Summary ---
Author Organization [facility] Address [address] [facility] [address] [place] [address] Phone Care Team Providers Care Cassandra Developer Name Role Phone Farzad Haskins MD Unavailable [phone] Fatoumata Ribeiro NP Unavailable [phone] Maura Diego MD Unavailable [phone] Jordan Olivas MD Primary Care Provider [phone] Kacey Richardson Primary Care Prov ider Encounter Details Date Type Department Care Team (Late st Contact Info) Description 01/14/2020 Ancillary Orders [facility] at [address] [address] Kacey Richardson PA [address] [place] [address] alessandra Breast screening Social History Tobacco Use [...] unspecified documented in this encounter Care Teams Cassandra Developer Relationship Specialty Start Date End Date Jordan Olivas MD 230 [facility] [address] [place] [phone] [email or web address] PCP - General Family Medicine 07/31/17 01/10/23 Kacey Richardson PA [address] [place] [address] jose alberto PCP - General Physician Furniture Mover Driver 01/11/23 Farzad Haskins MD [address] [place] [address] [email or web address] Historical LMR Provider 12/28/16 03/20/21 Fatoumata Ribeiro NP [address] [place] [address] Historical LMR Provider 12/28/16 2 Maura Diego MD [address] [place] [address] Orthopedics & Sports Medicine, [place] [address] Historical LMR Provider 12/28/16 03/20/21 documented as of this encounter Additional Source Comments The information contained in this document represents components of the legal health record. It is not the complete legal health record.[facility]
--- OUTSIDE RECORDS SUMMARY | 2025-02-04 17:17 | XMS_ITS | Encounter Summary ---
Author Organization [facility] Address [address] [employer] [facility] [address] [place] [address] Phone Care Team Providers Care Manager Presentation Name Role Phone Farzad Haskins MD Unavailable [phone] Fatoumata Ribeiro NP Unavailable [phone] Maura Diego MD Unavailable [phone] Jordan Olivas MD Primary Care Provider [phone] Kacey Richardson Primary Care Prov ider Encounter Details Date Type Department Care Team (Late st Contact Info) Description 12/14/2020 Procedure Pass [facility], [address] [address] Social History Tobacco Use Types Packs/Day Years [...] on filedocumented in this encounter Care Teams Manager Presentation Relationship Specialty Start Date End Date Jordan Olivas MD [address] [facility] [address] [place] [address] [email or web address] PCP - General Family Medicine 07/31/17 01/10/23 Kacey Richardson PA [address] [place] [address] jose alberto PCP - General Physician Rose Grading Supervisor 01/11/23 Farzad Haskins MD [address] [place] [address] [email or web address] Historical LMR Provider 12/28/16 03/20/21 Fatoumata Ribeiro NP [address] [place] [address] Historical LMR Provider 12/28/16 2 Maura Diego MD [address] [place] [address] Orthopedics & Sports Medicine, [place] [address] Historical LMR Provider 12/28/16 03/20/21 documented as of this encounter Additional Source Comments The information contained in this document represents components of the legal health record. It is not the complete legal health record.[facility]
--- OUTSIDE RECORDS SUMMARY | 2025-02-04 17:18 | XMS_ITS | Encounter Summary ---
Author Organization [facility] Address [address] [place] [address] Phone Care Team Providers Care Mental Health Program Specialist Name Role Phone Kacey Richardson Primary Care Prov ider Encounter Details Date Type Department Care Team (Late st Contact Info) Description 10/20/2023 Procedure Pass [facility], Ct Scan - [facility] [address] [place] [address] Social History Tobacco Use Types Packs/Day Years [...] on filedocumented in this encounter Care Teams Mental Health Program Specialist Relationship Specialty Start Date End Date Kacey Richardson PA [address] [place] [address] PCP - General Physician Career Development Coordinator 01/11/23 documented as of this encounter Additional Source Comments The information contained in this document represents components of the legal health record. It is not the complete legal health record.[facility]
--- OUTSIDE RECORDS SUMMARY | 2025-02-04 17:18 | XMS_ITS | Encounter Summary ---
Author Organization [facility] Address [address] [employer] [address] [place] [address] Phone Care Team Providers Care Fabricator Assembler Metal Products Name Role Phone Kacey Richardson Primary Care Prov ider Encounter Details Date Type Department Care Team (Late st Contact Info) Description 04/03/2023 Procedure Pass [facility], [facility] [address] [place] [address] Social History Tobacco Use Types Packs/Day Years [...] on filedocumented in this encounter Care Teams Fabricator Assembler Metal Products Relationship Specialty Start Date End Date Kacey Richardson PA [address] [place] [address] PCP - General Physician Instructional Coach 01/11/23 documented as of this encounter Additional Source Comments The information contained in this document represents components of the legal health record. It is not the complete legal health record.[facility]
--- OUTSIDE RECORDS SUMMARY | 2025-02-04 17:18 | XMS_ITS | Clinical Summary ---
Author Organization [facility] Address [address] [place] [address] Phone Care Team Providers Care Web Content Specialist Name Role Phone Kacey Richardson Primary [...] high school, GED, job training, learning the Sri [place]ankan language, technical skills, or developing parenting skills)? [...] 49 Admit Type: Outpatient Gender: Female Room: [place] [address] Referring MD: Jordan Olivas MD Exam Type: [...] monitored continuously. The Olympus adult variable colonoscope [id number] #4 was introduced through the anus and [...] 12:24 PM Procedure Code(s): --- Professional --- 75258, Colonoscopy, flexible; diagnostic, including collection of specimen(s) by brushing or washing, when performed (separateprocedure) --- Technical --- 14744, Colonoscopy, flexible; diagnostic, including collection of specimen(s) [...] perforation orabscess without bleeding CPT copyright 2018 [employer]. All rights reserved. The codes documented in this report are preliminary and upon national van owner operator reviewmay be revised to meet current compliance requirements. Procedure Date: 05/02/2019 12:24:42 PM [address] [place] [address] Jordan Olivas MD GI PROCEDURE ORDERABLES Final Re sult from Last 3 Months or Most Recently Relevant to Health Maintenance Insurance BLUE CROSS BLUE BENEFITS ADMINISTRATORS [employer] ADMINISTRATORS [employer] BENEFITS ADMINISTRATORS [employer] BENEFITS ADMINISTRATORS [employer] BENEFITS ADMINISTRATORS [employer] BENEFITS ADMINISTRATORS Care Teams Web Content Specialist Relationship Specialty Start Date End Date Kacey Richardson PA [facility] [place] [address] PCP - General Physician Laundry Machine Tender 01/11/23 Additional Source Comments The information contained in this document represents components of the legal health record. It is not the complete legal health record.[facility]
--- OUTSIDE RECORDS SUMMARY | 2025-02-04 17:18 | XMS_ITS | Encounter Summary ---
Author Organization [facility] Address [address] [facility] [address] [place] [address] Phone Care Team Providers Care Associate Professor Computer Science Name Role Phone Kacey Richardson Primary Care Prov ider Reason for Referral * MRI/CAT Scan - Closed Specialty Diagnoses / Procedures Referred By Rajesh rubio Referred To Contact Radiology Diagnoses LLQ pain Procedures CT Abdomen/Pelvis CT Abdomen/Pelvis CHG CT SCAN,ABDOMENT AND PELVIS,W CONTRAST CHG CT SCAN,ABDOMENT AND PELVIS,COMBO Eli Mccallum MD Phone: tel: fax: mailto:[email or web address] Referral ID Status Reason Start Date Expiration Date Visits Re quested Visits Authorized [id number] Closed 10/20/2023 12/18/2023 1 1 Encounter Details Date Type Department Care Team (Late st Contact Info) Description 10/26/2023 Ancillary Orders Virtual Department [address] [place] [address] Eli Mccallum MD [address] [place] [address] [email or web address] LLQ pain (Primary Dx) Social History Tobacco [...] quadrant documented in this encounter Care Teams Associate Professor Computer Science Relationship Specialty Start Date End Date Kacey Richardson PA [address] [place] [address] PCP - General Physician Casting Wheel Operator 01/11/23 documented as of this encounter Additional Source Comments The information contained in this document represents components of the legal health record. It is not the complete legal health record.[facility]
--- OUTSIDE RECORDS SUMMARY | 2025-02-04 17:18 | XMS_ITS | Encounter Summary ---
Author Organization [facility] Address [address] [place] [address] Phone Care Team Providers Care Embedded Systems Designer Name Role Phone Kacey Richardson Primary Care Prov ider Encounter Details Date Type Department Care Team (Late st Contact Info) Description 08/14/2023 Procedure Pass [facility], Ct Scan - [facility] [address] [place] [address] Social History Tobacco Use Types Packs/Day Years [...] on filedocumented in this encounter Care Teams Embedded Systems Designer Relationship Specialty Start Date End Date Kacey Richardson PA [address] [place] [address] PCP - General Physician Planning Technician 01/11/23 documented as of this encounter Additional Source Comments The information contained in this document represents components of the legal health record. It is not the complete legal health record.[facility]
--- OUTSIDE RECORDS SUMMARY | 2025-02-04 17:18 | XMS_ITS | Encounter Summary ---
Author Organization [facility] Address [address] [facility] [address] [place] [address] Phone Care Team Providers Care Make Ready Mechanic Name Role Phone Kacey Richardson Primary Care Prov ider Encounter Details Date Type Department Care Team (Latest Contact Info) Description 10/20/2023 Transcribe Orders Virtual Department [address] [place] [address] Eli Mccallum MD [address] [place] [address] [email or web address] LLQ pain (Primary Dx) Social History Tobacco [...] quadrant documented in this encounter Care Teams Make Ready Mechanic Relationship Specialty Start Date End Date Kacey Richardson PA [address] [place] [address] PCP - General Physician Youth Corrections Officer 01/11/23 documented as of this encounter Additional Source Comments The information contained in this document represents components of the legal health record. It is not the complete legal health record.[facility]
--- OUTSIDE RECORDS SUMMARY | 2025-02-04 17:18 | XMS_ITS | Encounter Summary ---
Author Organization [facility] Address [address] [facility] [address] [place] [address] Phone Care Team Providers Care Aviation Electronic Warfare Operator Name Role Phone Farzad Haskins MD Unavailable [phone] Fatoumata Ribeiro NP Unavailable [phone] Maura Diego MD Unavailable [phone] Jordan Olivas MD Primary Care Provider [phone] Kacey Richardson Primary Care Prov ider Encounter Details Date Type Department Care Team (Late st Contact Info) Description 05/02/2019 Procedure Pass [facility] Endoscopy Admitting Dept Virtual Department [address] [place] [address] Social History Tobacco Use Types Packs/Day Years [...] on filedocumented in this encounter Care Teams Aviation Electronic Warfare Operator Relationship Specialty Start Date End Date Jordan Olivas MD [address] [facility] [address] [place] [phone] [email or web address] PCP - General Family Medicine 07/31/17 01/10/23 Kacey Richardson PA [address] [place] [address] jose [email or web address] PCP - General Physician Databases Software Consultant 01/11/23 Farzad Haskins MD [address] [place] [address] [email or web address] Historical LMR Provider 12/28/16 03/20/21 Fatoumata Ribeiro NP [address] [place] [address] Historical LMR Provider 12/28/16 2 Maura Diego MD [address] [place] [address] Orthopedics & Sports Medicine, [place] [address] [email or web address] Historical LMR Provider 12/28/16 03/20/21 documented as of this encounter Additional Source Comments The information contained in this document represents components of the legal health record. It is not the complete legal health record.[facility]
--- OUTSIDE RECORDS SUMMARY | 2025-02-04 17:18 | XMS_ITS | Encounter Summary ---
Author Organization [facility] Address [address] [place] [address] Phone Care Team Providers Care Case Supervisor Name Role Phone Kacey Richardson Primary Care Prov ider Encounter Details Date Type Department Care Team (Late st Contact Info) Description 01/11/2023 Procedure Pass [facility], [facility] [address] [place] [address] Social History Tobacco Use Types Packs/Day Years [...] on filedocumented in this encounter Care Teams Case Supervisor Relationship Specialty Start Date End Date Kacey Richardson PA [address] [place] [address] PCP - General Physician Theatrical Rigger 01/11/23 documented as of this encounter Additional Source Comments The information contained in this document represents components of the legal health record. It is not the complete legal health record.[facility]
--- OUTSIDE RECORDS SUMMARY | 2025-02-04 17:18 | XMS_ITS | Encounter Summary ---
Author Organization [facility] Address [address] [facility] [address] [place] [address] Phone Care Team Providers Care Merchant Tailor Name Role Phone Kacey Richardson Primary Care Prov ider Encounter Details Date Type Department Care Team (Late st Contact Info) Description 01/11/2023 Transcribe Orders Virtual Department 30 [place] [address] Kacey Richardson PA [address] [place] [address] [email or web address] Breast screening (Primary Dx) Social History [...] unspecified documented in this encounter Care Teams Merchant Tailor Relationship Specialty Start Date End Date Kacey Richardson PA [address] [place] [address] PCP - General Physician Traffic Maintenance Supervisor 01/11/23 documented as of this encounter Additional Source Comments The information contained in this document represents components of the legal health record. It is not the complete legal health record.[facility]
--- OUTSIDE RECORDS SUMMARY | 2025-02-04 17:18 | XMS_ITS | Encounter Summary ---
Author Organization [facility] Address [address] [facility] [address] [place] [address] Phone Care Team Providers Care Swaging Machine Adjuster Name Role Phone Farzad Haskins MD Unavailable [phone] Fatoumata Ribeiro NP Unavailable [phone] Maura Diego MD Unavailable [phone] Jordan Olivas MD Primary Care Provider [phone] Kacey Richardson Primary Care Prov ider Encounter Details Date Type Department Care Team (Late st Contact Info) Description 06/08/2018 Ancillary Orders Virtual Department 30 [place] [address] Jordan Olivas MD [address] [employer] [address] [place] [phone] [email or web address] Breast screening Social History Tobacco Use Types [...] lowers the sensitivity of mammography. POS - [id number] Narrative 08/15/2018 8:21 AM EDT Standard digital [...] and compared with multiple prior studies, most doxgujjf34/04/2018, with utilization of computer-aided detection. The breast [...] whichlowers the sensitivity of mammography. POS - [id number] Jordan Olivas MD IMG MG EXAMS Final Result documented in this encounter Visit Diagnoses Diagnosis Breast screening Breast screening, unspecified Breast screening Breast screening, unspecified documented in this encounter Care Teams Swaging Machine Adjuster Relationship Specialty Start Date End Date Jordan Olivas MD [address] [employer] [address] [place] [address] [email or web address] PCP - General Family Medicine 07/31/17 01/10/23 Kacey Richardson PA [address] [place] [address] jose [email or web address] PCP - General Physician Police Captain 01/11/23 Farzad Haskins MD [address] [place] [address] [email or web address] Historical LMR Provider 12/28/16 03/20/21 Fatoumata iRbeiro NP [address] [place] [address] Historical LMR Provider 12/28/16 2 Maura Diego MD [address] [place] [address] Orthopedics & Sports Medicine, [place] [address] [email or web address] Historical LMR Provider 12/28/16 03/20/21 documented as of this encounter Additional Source Comments The information contained in this document represents components of the legal health record. It is not the complete legal health record.[facility]
--- OUTSIDE RECORDS SUMMARY | 2025-02-04 17:18 | XMS_ITS | Encounter Summary ---
Author Organization [facility] Address [address] [place] [address] Phone Care Team Providers Care Supervisor Cell Maintenance Name Role Phone Farzad Haskins MD Primary Care Provider + [phone] Farzad Haskins MD Unavailable [phone] Fatoumata Ribeiro NP Unavailable [phone] Maura Diego MD Unavailable [phone] Jordan Olivas MD Primary Care Provider [phone] Kacey Richardson Primary Care Prov ider Encounter Details Date Type Department Care Team (Late st Contact Info) Description 05/05/2017 Ancillary Orders Virtual Department [address] [place] [address] Daniel Colin MD [address] [place] [address] Drive [address] [place] [address] Visit for screening mammogram Social History Tobacco [...] mammogram documented in this encounter Care Teams Supervisor Cell Maintenance Relationship Specialty Start Date End Date Farzad Haskins MD [address] [place] [address] [email or web address] PCP - General 09/10/13 07/30/17 Jordan Olivas MD [address] [facility] [address] [place] [address] [email or web address] PCP - General Family Medicine 07/31/17 01/10/23 Kacey Richardson PA [address] [place] [address] jose alberto PCP - General Physician Box Toe Cementer 01/11/23 Farzad Hsakins MD [address] [place] [address] [email or web address] Historical LMR Provider 12/28/16 03/20/21 Fatoumata Ribeiro NP [address] [place] [address] Historical LMR Provider 12/28/16 2 Maura Diego MD [address] [place] [address] Orthopedics & Sports Medicine, [facility] [place] [address] Historical LMR Provider 12/28/16 03/20/21 documented as of this encounter Additional Source Comments The information contained in this document represents components of the legal health record. It is not the complete legal health record.[facility]
--- OUTSIDE RECORDS SUMMARY | 2025-02-04 17:18 | XMS_ITS | Encounter Summary ---
Author Organization [facility] Address [address] [facility] [address] [place] [address] Phone Care Team Providers Care Merchandising Stock Associate Name Role Phone Kacey Richardson Primary Care Prov ider Encounter Details Date Type Department Care Team (Latest Contact Info) Description 04/03/2023 Transcribe Orders Virtual Department [address] [place] [address] Daniel Colin MD [address] [place] [address] Drive [address] [place] [address] Breast screening (Primary Dx) Social [...] unspecified documented in this encounter Care Teams Merchandising Stock Associate Relationship Specialty Start Date End Date Kacey Richardson PA [address] [place] [address] PCP - General Physician Mapping Pilot 01/11/23 documented as of this encounter Additional Source Comments The information contained in this document represents components of the legal health record. It is not the complete legal health record.[facility]
== END 2025-02-04 13:39 | disposition home or self-care (01) ==
LOC: HO.HOS 13:24
DX: M24.812 Other specific joint derangements of left shoulder, not elsewhere classified (principal); M25.512 Pain in left shoulder
CPT/HCPCS: 20610; 99213

== ENCOUNTER → 2025-02-04 13:24 | Outpatient (BNVA) | payer OTHER, SELFPAY | DX: M24.812 Other specific joint derangements of left shoulder, not elsewhere classified (principal) | CPT/HCPCS: 20610; J0665; J1100; J2003 ==

== ENCOUNTER 2025-02-13 08:26 | Outpatient (AMB) | payer OTHER, SELFPAY ==
--- NOTE | 2025-02-13 08:31 | A.OFFVIS_ITS ---
Vital Signs 02/13/25 08:32 Height 5 ft 6 in Weight 180 lb BMI 29.0 Intake Visit Reasons: Rt foot pain Intake Note: Raina is a 54 year old female who presents to the office today for a 1 month follow up.MRI of right foot was obtained on 01/31/25. Allergies carbamazepine (From Tegretol) Allergy (Mild, Verified 02/13/25 08:32) Hives HPI HPI Rt foot pain: Details: 54-year-old female with past medical history of diverticulitis returns for MRI review for chronic right foot pain. The patient states she has had the pain for at least 10 years, starting after she was running at inclines and doing a lot of forefoot running. Pain is present when ambulating, usually present after increased activity. She describes it as a burning and occasional sharp intermittent pain. Denies numbness. She has not been able to run due to her pain for the past 10 years. She has seen other podiatrists in the past, where she received x-rays, orthotics, metatarsal pads, calf stretching/treatment, and injections to her PT tendon and forefoot. As per medical note review, the patient had left foot pain as well, however patient denies left foot pain today. [facility] Medical History Trigeminal neuralgia HTN (hypertension) Surgical History H/O sinus surgery H/O tubal ligation Hx of colposcopy with cervical biopsy Hx of colonoscopy History of esophagogastroduodenoscopy (EGD) Family History Father HTN (hypertension) Mother HTN (hypertension) Sister HTN (hypertension) Paternal Aunt Breast cancer Social History Household Members: Spouse Household Members Other:: mother Housing: House Alcohol intake: current Alcohol intake frequency: a few times a month Alcohol type: wine Patient Tobacco Use Status: Never used Tobacco Current occupational status: employed 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 No pedal edema. Derm: Hyperkeratotic lesion right foot sub 2nd and 3rd metatarsal, left foot sub 2nd metatarsal. No clinical signs of infection. Neuro: Protective sensation grossly intact to bilateral lower extremities MSK: No pain on forefoot squeeze. Negative Ivory's click. No pain on palpation of the sub 2/3 metatarsal region bilateral feet. Normal arch type on weight-bearing. Mild (2 degree) heel valgus right foot. Both heels invert on double heel rise. Ankle dorsiflexion 5 degrees on knee extension, 10 degrees on knee flexion. No pain on palpation of the Achilles tendon or the posterior tibial tendon. Gait: No early heel rise, equal & symmetric. Office Procedures AMB Joint Injection/Aspir Pod 32964 RT - Cee's Neuroma Injection RT Procedure code (CPT) selection complete Office Meds triamcinolone acetonide 40 mg/mL suspension for injection Performing Provider: Aly Mancia DPM Performing Location: [facility] Administered by: Aly Mancia DPM on 02/13/25 08:54 Dose Route Admin Location Dispensed Lot Number Expiration Date [facility] Claims Clerk 20 mg intra-articular 1 mL [address]-8 [employer] Total Dispensed Waste 1 mL 50 % dexamethasone sodium phosphate 4 mg/mL injection solution Performing Provider: Aly Mancia DPM Performing Location: [facility] Administered by: Aly Mancia DPM on 02/13/25 08:54 Dose Route Admin Location Dispensed Lot Number Expiration Date [facility] Claims Clerk 4 mg intra-articular 1 mL [id number] MYL AN INSTITUTI Total Dispensed Waste 1 mL 0 % bupivacaine (PF) 0.5 % (5 mg/mL) injection solution Performing Provider: Aly Mancia DPM Performing Location: [facility] Administered by: Aly Mancia DPM on 02/13/25 08:54 Dose Route Admin Location Dispensed Lot Number Expiration Date [facility] Claims Clerk 2 mL intra-articular 10 mL [id number] [employer]IK [place] [employer] Total Dispensed Waste 10 mL 80 % Assessment & Plan Assessment & Plan (1) Metatarsalgia of both feet: Code(s): M77.41 - Metatarsalgia, right foot; M77.42 - Metatarsalgia, left foot Category: Medical Plan: * Reviewed right foot MRI with the patient. Differential diagnosis includes neuroma, interspace bursitis. * Continue wide supportive shoe-wear, metatarsal pads. * Administered steroid injection to the right 1st interspace/medial aspect of the 2nd Metatarsal-phalangeal joint, extra capsular. * Follow up in 1 month. Recommend decreasing high impact activity for the next 1-2 weeks. Orders: Orders AMB Joint Injection/Aspiration Podiatry Today G57.81 - Other specified mononeuropathies of right lower limb Coding Level of Care Code Est Pt Level 4 (22668) Diagnoses Metatarsalgia of both feet M77.41; M77.42 CPT Codes Joint injectio/aspiration Podiatry - Joint Injection POD8: 03643 RT - Cee's Neuroma Injection RT ([id number]) Time Spent (min) 20
[2025-02-13 08:32] VITALS: BMI 29.0
--- OUTSIDE RECORDS SUMMARY | 2025-02-13 09:00 | XMS_ITS | Encounter Summary ---
Author Organization [facility] Address [address] [facility] [address] [place] [address] Phone Care Team Providers Care Airport Shuttle Driver Name Role Phone Farzad Haskins MD Unavailable [phone] Fatoumata Ribeiro NP Unavailable [phone] Maura Diego MD Unavailable [phone] Jordan Olivas MD Primary Care Provider [phone] Kacey Richardson Primary Care Prov ider Reason for Referral * Consultation (Elective) - Closed Specialty Diagnoses / Procedures Referred By Contkenny t Referred To Contact Pulmonary Disease Jordan Olivas MD Phone: tel: fax: mailto:[email or web address] [address] [place] [address] Phone: tel: Referral ID Status Reason Start Date Expiration Date Visits Re quested Visits Authorized [id number] Closed 04/08/2020 04/08/2021 1 1 Encounter Details Date Type Department Care Team ([facility] Contact Info) Description 04/08/2020 Transcribe Orders CD Pulmonary, Allergy and Critical Care Medicine [address] [place], [place] [id number] Jordan Olivas MD [address] [facility] [place] [address] [email or web address] Social History Tobacco Use Types Packs/Day Years [...] Associated Diagnoses Order Schedule Ambulatory referral to [facility] Pulmonology Outpatient Referral Routine Ordered: 04/08/2020 documented as of this encounter Visit Diagnoses Not on filedocumented in this encounter Care Teams Airport Shuttle Driver Relationship Specialty Start Date End Date Jordan Olivas MD [address] [facility] [address] [place] [address] [email or web address] PCP - General Family Medicine 07/31/17 01/10/23 Kacey Richardson PA [address] [place] [address] jose [email or web address] [facility] PCP - General Physician Oracle Business Analyst 01/11/23 Farzad Haskins MD [address] [place] [address] [email or web address] Historical LMR Provider 12/28/16 03/20/21 Fatoumata Ribeiro NP [address] [place] [address] Historical LMR Provider 12/28/16 2 Maura Diego MD [address] [place] [address] Orthopedics & Sports Medicine, [place] [address] [email or web address] Historical LMR Provider 12/28/16 03/20/21 documented as of this encounter Additional Source Comments The information contained in this document represents components of the legal health record. It is not the complete legal health record.[facility]
--- OUTSIDE RECORDS SUMMARY | 2025-02-13 09:00 | XMS_ITS | Encounter Summary ---
Author Organization [facility] Address [address] [employer] [facility] [address] [place] [address] Phone Care Team Providers Care Cargo Operations Agent Name Role Phone Farzad Haskins MD Unavailable [phone] Fatoumata Ribeiro NP Unavailable [phone] Maura Diego MD Unavailable [phone] Jordan Olivas MD Primary Care Provider Kacey Richardson Primary Care Prov ider Encounter Details Date Type Department Care Team (Late st Contact Info) Description 01/14/2020 Ancillary Orders [facility] at [address] [address] Kacey Richardson PA [address] [place] [address] alessandra Breast screening Social History Tobacco Use [...] unspecified documented in this encounter Care Teams Cargo Operations Agent Relationship Specialty Start Date End Date Jordan Olivas MD [address] [employer] [address] [place] [phone] [email or web address] PCP - General Family Medicine 07/31/17 01/10/23 Kacey Richardson PA [address] [place] [address] jose [email or web address] PCP - General Physician Data Deliverables Manager 01/11/23 Farzad Haskins MD [address] [place] [address] [email or web address] Historical LMR Provider 12/28/16 03/20/21 Fatoumata Ribeiro NP [address] [place] [address] Historical LMR Provider 12/28/16 2 Maura Diego MD [address] [place] [address] Orthopedics & Sports Medicine, [place] [address] Historical LMR Provider 12/28/16 03/20/21 documented as of this encounter Additional Source Comments The information contained in this document represents components of the legal health record. It is not the complete legal health record.[facility]
--- OUTSIDE RECORDS SUMMARY | 2025-02-13 09:00 | XMS_ITS | Encounter Summary ---
Author Organization [facility] Address [address] [employer] [address] [place] [address] Phone Care Team Providers Care Chute Loader Name Role Phone Farzad Haskins MD Unavailable [phone] Fatoumata Ribeiro NP Unavailable [phone] Maura Diego MD Unavailable [phone] Jordan Olivas MD Primary Care Provider [phone] Kacey Richardson Primary Care Prov ider Encounter Details Date Type Department Care Team (Late st Contact Info) Description 01/14/2020 Procedure Pass [facility], [address] [address] Social History Tobacco Use Types Packs/Day Years [...] on filedocumented in this encounter Care Teams Chute Loader Relationship Specialty Start Date End Date Jordan Olivas MD 230 [facility] [address] [place] [address] [email or web address] PCP - General Family Medicine 07/31/17 01/10/23 Kacey Richardson PA [address] [place] [address] jose [email or web address] PCP - General Physician Marketing Director Assisted Living 01/11/23 Farzad Haskins MD [address] [place] [address] [email or web address] Historical LMR Provider 12/28/16 03/20/21 Fatoumata Ribeiro NP [address] [place] [address] Historical LMR Provider 12/28/16 2 Maura Deigo MD [address] [place] [address] Orthopedics & Sports Medicine, [facility] [place] [address] Historical LMR Provider 12/28/16 03/20/21 documented as of this encounter Additional Source Comments The information contained in this document represents components of the legal health record. It is not the complete legal health record.[facility]
--- OUTSIDE RECORDS SUMMARY | 2025-02-13 09:00 | XMS_ITS | Encounter Summary ---
Author Organization [facility] Address [address] [employer] [address] [place] [address] Phone Care Team Providers Care Endless Bed Drum Sander Name Role Phone Jordan Olivas MD Primary Care Provider [phone] Kacey Richardson Primary Care Prov ider Encounter Details Date Type Department Care Team (Late st Contact Info) Description 12/20/2021 Procedure Pass [facility], [facility] [address] [place] [address] Social History Tobacco Use Types Packs/Day Years [...] on filedocumented in this encounter Care Teams Endless Bed Drum Sander Relationship Specialty Start Date End Date Jordan Olivas MD 230 [facility] [address] [place] [address] [email or web address] PCP - General Family Medicine 07/31/17 01/10/23 Kacey Richardson [place] [address] PCP - General Physician Taxation Inspector 01/11/23 documented as of this encounter Additional Source Comments The information contained in this document represents components of the legal health record. It is not the complete legal health record.[facility]
--- OUTSIDE RECORDS SUMMARY | 2025-02-13 09:00 | XMS_ITS | Encounter Summary ---
Author Organization [facility] Address [address] [employer] [facility] [address] [place] [address] Phone Care Team Providers Care Digital Commentator Name Role Phone Farzad Haskins MD Unavailable [phone] Fatoumata Ribeiro NP Unavailable [phone] Maura Diego MD Unavailable [phone] Jordan Olivas MD Primary Care Provider [phone] Kcaey Richardosn Primary Care Prov ider Encounter Details Date Type Department Care Team (Late st Contact Info) Description 12/14/2020 Procedure Pass [facility], [address] [address] Social History Tobacco Use Types Packs/Day Years [...] on filedocumented in this encounter Care Teams Digital Commentator Relationship Specialty Start Date End Date Jordan Olivas MD 230 [facility] [address] [place] [address] [email or web address] PCP - General Family Medicine 07/31/17 01/10/23 Kacey Richardson PA [address] [place] [address] jose [email or web address] PCP - General Physician Tufter Operator 01/11/23 Farzad Haskins MD [address] [place] [address] [email or web address] Historical LMR Provider 12/28/16 03/20/21 Fatoumata Ribeiro NP [address] [place] [address] Historical LMR Provider 12/28/16 2 Maura Diego MD [address] [place] [address] Orthopedics & Sports Medicine, [facility] [place] [address] Historical LMR Provider 12/28/16 03/20/21 documented as of this encounter Additional Source Comments The information contained in this document represents components of the legal health record. It is not the complete legal health record.[facility]
--- OUTSIDE RECORDS SUMMARY | 2025-02-13 09:01 | XMS_ITS | Clinical Summary ---
Author Organization [facility] Address [address] [place] [address] Phone Care Team Providers Care Linoleum Printer Name Role Phone Kacey Richardson Primary Care [...] high school, GED, job training, learning the Luxembour[place] language, technical skills, or developing parenting skills)? [...] 50 Admit Type: Outpatient Gender: Female Room: [place] [address] Referring MD: Jordan Olivas MD Exam Type: [...] monitored continuously. The Olympus adult variable colonoscope [id number] #4 was introduced through the anus and [...] 12:24 PM Procedure Code(s): --- Professional --- 15122, Colonoscopy, flexible; diagnostic, including collection of specimen(s) by brushing or washing, when performed (separateprocedure) --- Technical --- 46968, Colonoscopy, flexible; diagnostic, including collection of specimen(s) [...] perforation orabscess without bleeding CPT copyright 2018 [employer]. All rights reserved. The codes documented in this report are preliminary and upon medical coder reviewmay be revised to meet current compliance requirements. Procedure Date: 05/02/2019 12:24:42 PM 30 [place] [address] Jordan Olivas MD GI PROCEDURE ORDERABLES Final Re sult from Last 3 Months or Most Recently Relevant to Health Maintenance Insurance BLUE CROSS BLUE BENEFITS ADMINISTRATORS [employer] ADMINISTRATORS [employer] BENEFITS ADMINISTRATORS [employer] BENEFITS ADMINISTRATORS [employer] BENEFITS ADMINISTRATORS [employer] BENEFITS ADMINISTRATORS Care Teams Linoleum Printer Relationship Specialty Start Date End Date Kacey Richardson PA [facility] [place] [address] PCP - General Physician Independent Producer 01/11/23 Additional Source Comments The information contained in this document represents components of the legal health record. It is not the complete legal health record.[facility]
--- OUTSIDE RECORDS SUMMARY | 2025-02-13 09:01 | XMS_ITS | Encounter Summary ---
Author Organization [facility] Address [address] [employer] [facility] [address] [place] [address] Phone Care Team Providers Care Senior Bioinformatics Scientist Name Role Phone Farzad Haskins MD Unavailable [phone] Fatoumata Ribeiro NP Unavailable [phone] Maura Diego MD Unavailable [phone] Jordan Olivas MD Primary Care Provider [phone] Kacey Richardson Primary Care Prov ider Encounter Details Date Type Department Care Team (Late st Contact Info) Description 06/08/2018 Ancillary Orders Virtual Department [address] [place] [address] Jordan Olivas MD 230 [facility] [address] [place] [phone] [email or web address] Breast screening Social History Tobacco Use Types [...] lowers the sensitivity of mammography. POS - [id number] Narrative 08/15/2018 8:21 AM EDT Standard digital [...] and compared with multiple prior studies, most ubaocder84/04/2018, with utilization of computer-aided detection. The breast [...] whichlowers the sensitivity of mammography. POS - [id number] Jordan Olivas MD IMG MG EXAMS Final Result documented in this encounter Visit Diagnoses Diagnosis Breast screening Breast screening, unspecified Breast screening Breast screening, unspecified documented in this encounter Care Teams Senior Bioinformatics Scientist Relationship Specialty Start Date End Date Jordan Olivas MD 230 [facility] [address] [place] [address] [email or web address] PCP - General Family Medicine 07/31/17 01/10/23 Kacey Richardson PA [address] [place] [address] jose alberto PCP - General Physician Practical Nurse Clinical Coordinator 01/11/23 Farzad Haskins MD [address] [place] [address] [email or web address] Historical LMR Provider 12/28/16 03/20/21 Fatoumata Ribeiro NP [address] [place] [address] Historical LMR Provider 12/28/16 2 Maura Diego MD [address] [place] [address] Orthopedics & Sports Medicine, [facility] [place] [address] [email or web address] Historical LMR Provider 12/28/16 03/20/21 documented as of this encounter Additional Source Comments The information contained in this document represents components of the legal health record. It is not the complete legal health record.[facility]
--- OUTSIDE RECORDS SUMMARY | 2025-02-13 09:01 | XMS_ITS | Encounter Summary ---
Author Organization [facility] Address [address] [facility] [address] [place] [address] Phone Care Team Providers Care Shade Cloth Finisher Name Role Phone Farzad Haskins MD Unavailable [phone] Fatoumata Ribeiro NP Unavailable Maura Diego MD Unavailable [phone] Jordan Olivas MD Primary Care Provider [phone] Kacey Richardson Primary Care Prov ider Encounter Details Date Type Department Care Team (Late st Contact Info) Description 05/02/2019 Procedure Pass [facility] Admitting Dept Virtual Department [address] [place] [address] Social History Tobacco Use Types Packs/Day Years [...] on filedocumented in this encounter Care Teams Shade Cloth Finisher Relationship Specialty Start Date End Date Jordan Olivas MD 230 [facility] [address] [place] [phone] [email or web address] PCP - General Family Medicine 07/31/17 01/10/23 Kacey Richardson PA [address] [place] [address] jose [email or web address] PCP - General Physician Adjustment Examiner 01/11/23 Farzad Haskins MD [address] [place] [address] [email or web address] Historical LMR Provider 12/28/16 03/20/21 Fatoumata Ribeiro NP [address] [place] [address] Historical LMR Provider 12/28/16 2 Maura Diego MD [address] [place] [address] Orthopedics & Sports Medicine, [facility] [place] [address] [email or web address] Historical LMR Provider 12/28/16 03/20/21 documented as of this encounter Additional Source Comments The information contained in this document represents components of the legal health record. It is not the complete legal health record.[facility]
--- OUTSIDE RECORDS SUMMARY | 2025-02-13 09:01 | XMS_ITS | Encounter Summary ---
Author Organization [facility] Address [address] [place] [address] Phone Care Team Providers Care Outpatient Receptionist Name Role Phone Kacey Richardson Primary Care Prov ider Encounter Details Date Type Department Care Team (Late st Contact Info) Description 10/20/2023 Procedure Pass [facility], Ct Scan - [facility] 30 [place] [address] Social History Tobacco Use Types Packs/Day Years [...] on filedocumented in this encounter Care Teams Outpatient Receptionist Relationship Specialty Start Date End Date Kacey Richardson PA [address] [place] [address] PCP - General Physician Travel Registered Nurse Oncology 01/11/23 documented as of this encounter Additional Source Comments The information contained in this document represents components of the legal health record. It is not the complete legal health record.[facility]
--- OUTSIDE RECORDS SUMMARY | 2025-02-13 09:01 | XMS_ITS | Encounter Summary ---
Author Organization [facility] Address [address] [place] [address] Phone Care Team Providers Care Harness Cutter Name Role Phone Kacey Richardson Primary Care Prov ider Encounter Details Date Type Department Care Team (Late st Contact Info) Description 04/03/2023 Procedure Pass [facility] 30 [place] [address] Social History Tobacco Use Types Packs/Day Years [...] on filedocumented in this encounter Care Teams Harness Cutter Relationship Specialty Start Date End Date Kacey Richardson PA [address] [place] [address] PCP - General Physician Ramp Manager 01/11/23 documented as of this encounter Additional Source Comments The information contained in this document represents components of the legal health record. It is not the complete legal health record.[facility]
--- OUTSIDE RECORDS SUMMARY | 2025-02-13 09:01 | XMS_ITS | Encounter Summary ---
Author Organization [facility] Address [address] [facility] [address] [place] [address] Phone Care Team Providers Care Business Programmer Name Role Phone Kacey Richardson Primary Care Prov ider Encounter Details Date Type Department Care Team (Latest Contact Info) Description 04/03/2023 Transcribe Orders Virtual Department [address] [place] [address] Daniel Colin MD [address] [place] [address] [address] [place] [address] Breast screening (Primary Dx) Social [...] unspecified documented in this encounter Care Teams Business Programmer Relationship Specialty Start Date End Date Kacey Richardson PA [address] [place] [address] PCP - General Physician Marketing Services Manager 01/11/23 documented as of this encounter Additional Source Comments The information contained in this document represents components of the legal health record. It is not the complete legal health record.[facility]
--- OUTSIDE RECORDS SUMMARY | 2025-02-13 09:01 | XMS_ITS | Encounter Summary ---
Author Organization [facility] Address [address] [place] [address] Phone Care Team Providers Care Seconds Inspector Name Role Phone Kacey Richardson Primary Care Prov ider Encounter Details Date Type Department Care Team (Late st Contact Info) Description 08/14/2023 Procedure Pass [facility], Ct Scan - [facility] [address] [place] [address] Social History Tobacco Use Types Packs/Day Years [...] on filedocumented in this encounter Care Teams Seconds Inspector Relationship Specialty Start Date End Date Kacey Richardson PA [address] [place] [address] PCP - General Physician Artificial Limb Maker 01/11/23 documented as of this encounter Additional Source Comments The information contained in this document represents components of the legal health record. It is not the complete legal health record.[facility]
--- OUTSIDE RECORDS SUMMARY | 2025-02-13 09:01 | XMS_ITS | Encounter Summary ---
Author Organization [facility] Address [address] [employer] [facility] [address] [place] [address] Phone Care Team Providers Care Inventory Control Coordinator Name Role Phone Kacey Richardson Primary Care Prov ider Encounter Details Date Type Department Care Team (Latest Contact Info) Description 10/20/2023 Transcribe Orders Virtual Department [address] [place] [address] Eli Mccallum MD [address] [place] [address] [email or web address] LLQ pain (Primary [...] quadrant documented in this encounter Care Teams Inventory Control Coordinator Relationship Specialty Start Date End Date Kacey Richardson PA [address] [place] [address] PCP - General Physician Lathe Scalper Operator 01/11/23 documented as of this encounter Additional Source Comments The information contained in this document represents components of the legal health record. It is not the complete legal health record.[facility]
--- OUTSIDE RECORDS SUMMARY | 2025-02-13 09:01 | XMS_ITS | Encounter Summary ---
Author Organization [facility] Address [address] [facility] [address] [place] [address] Phone Care Team Providers Care Relationship Advisor Name Role Phone Kacey Richardson Primary Care Prov ider Reason for Referral * MRI/CAT Scan - Closed Specialty Diagnoses / Procedures Referred By Rajesh rubio Referred To Contact Radiology Diagnoses LLQ pain Procedures CT Abdomen/Pelvis CT Abdomen/Pelvis CHG CT SCAN,ABDOMENT AND PELVIS,W CONTRAST CHG CT SCAN,ABDOMENT AND PELVIS,COMBO Eli Mccallum MD Phone: tel: fax: [email or web address] Referral ID Status Reason Start Date Expiration Date Visits Re quested Visits Authorized [id number] Closed 10/20/2023 12/18/2023 1 1 Encounter Details Date Type Department Care Team (Late st Contact Info) Description 10/26/2023 Ancillary Orders Virtual Department [address] [place] [address] Eli Mccallum MD [address] [place] [address] [email or web address] LLQ pain (Primary Dx) Social History [...] quadrant documented in this encounter Care Teams Relationship Advisor Relationship Specialty Start Date End Date Kacey Richardson PA [address] [place] [address] PCP - General Physician Circular Ripsaw Operator 01/11/23 documented as of this encounter Additional Source Comments The information contained in this document represents components of the legal health record. It is not the complete legal health record.[facility]
--- OUTSIDE RECORDS SUMMARY | 2025-02-13 09:02 | XMS_ITS | Encounter Summary ---
Author Organization [facility] Address [address] [facility] [address] [place] [address] Phone Care Team Providers Care Personal Lines Account Manager Name Role Phone Farzad Haskins MD Primary Care Provider [phone] Farzad Haskins MD Unavailable [phone] Fatoumata Ribeiro NP Unavailable [phone] Maura Diego MD Unavailable [phone] Jordan Olivas MD Primary Care Provider [phone] Kacey Richardson Primary Care Prov ider Encounter Details Date Type Department Care Team (Late st Contact Info) Description 05/05/2017 Ancillary Orders Virtual Department [address] [place] [address] Daniel Colin MD [address] [place] [address] [address] [place] [address] Visit for screening mammogram Social History Tobacco [...] mammogram documented in this encounter Care Teams Personal Lines Account Manager Relationship Specialty Start Date End Date Farzad Haskins MD [address] [place] [address] [email or web address] PCP - General 09/10/13 07/30/17 Jordan Olivas MD 230 [facility] [address] [place] [address] [email or web address] PCP - General Family Medicine 07/31/17 01/10/23 Kacey Richardson PA [address] [place] [address] jose [email or web address] PCP - General Physician Home Demonstrator 01/11/23 Farzad Haskins MD [address] [place] [address] [email or web address] Historical LMR Provider 12/28/16 03/20/21 Fatoumata Ribeiro NP [address] [place] [address] Historical LMR Provider 12/28/16 2 Maura Diego MD [address] [place] [address] Orthopedics & Sports Medicine, [place] [address] Historical LMR Provider 12/28/16 03/20/21 documented as of this encounter Additional Source Comments The information contained in this document represents components of the legal health record. It is not the complete legal health record.[facility]
--- OUTSIDE RECORDS SUMMARY | 2025-02-13 09:02 | XMS_ITS | Encounter Summary ---
Author Organization [facility] Address [address] [email or web address] [facility] [address] [place] [address] Phone Care Team Providers Care Composite Bond Worker Name Role Phone Kacey Richardson Primary Care Prov ider Encounter Details Date Type Department Care Team (Late st Contact Info) Description 01/11/2023 Transcribe Orders Virtual Department [address] [place] [address] Kacey Richardson PA [address] [place] [address] [email or web address] Breast screening (Primary Dx) Social History [...] unspecified documented in this encounter Care Teams Composite Bond Worker Relationship Specialty Start Date End Date Kacey Richardson PA [address] [place] [address] PCP - General Physician Interim Controller 01/11/23 documented as of this encounter Additional Source Comments The information contained in this document represents components of the legal health record. It is not the complete legal health record.[facility]
--- OUTSIDE RECORDS SUMMARY | 2025-02-13 09:02 | XMS_ITS | Encounter Summary ---
Author Organization [facility] Address [address] [employer] [place] [address] Phone Care Team Providers Care Rn Lpn Lvn Name Role Phone Kacey Richardson Primary Care Prov ider Encounter Details Date Type Department Care Team (Late st Contact Info) Description 01/11/2023 Procedure Pass [facility], [facility] [address] [place] [address] Social History Tobacco Use Types Packs/Day Years [...] on filedocumented in this encounter Care Teams Rn Lpn Lvn Relationship Specialty Start Date End Date Kacey Richardson PA [address] [place] [address] PCP - General Physician Algorithm Developer 01/11/23 documented as of this encounter Additional Source Comments The information contained in this document represents components of the legal health record. It is not the complete legal health record.[facility]
== END 2025-02-13 08:52 | disposition home or self-care (01) ==
LOC: HO.HPODS 08:26
PROVIDERS: PCP Family Medicine; Visit Provider Student in an Organized Health Care Education/Training Program
DX: M77.41 Metatarsalgia, right foot (principal); M77.42 Metatarsalgia, left foot; G57.81 Other specified mononeuropathies of right lower limb
CPT/HCPCS: 64455; 99213

== ENCOUNTER → 2025-02-13 08:26 | Outpatient (BNVA) | payer OTHER, SELFPAY | PROVIDERS: PCP Family Medicine; Visit Provider Student in an Organized Health Care Education/Training Program | DX: G57.81 Other specified mononeuropathies of right lower limb (principal); M77.41 Metatarsalgia, right foot; M77.42 Metatarsalgia, left foot | CPT/HCPCS: 64455; J0665; J1100; J3301 ==

== ENCOUNTER 2025-03-12 09:13 | Outpatient (AMB) | payer OTHER, SELFPAY ==
[2025-03-12 09:15] VITALS: BP 109/71; PULSE 69; BMI 30.6
--- NOTE | 2025-03-12 09:15 | MHC.OFFVIS ---
Vital Signs 03/12/25 09:15 Height 5 ft 6 in Weight 189 lb 9.561 oz BMI 30.6 BP 109/71 Blood Pressure Location Lt brachial Position Sitting Pulse 69 Intake Visit Reasons: Increased gas, increased rectocele related problem Intake Note: Raina presents in the office as a follow up. CC: States that she is having increased difficulty voiding. Transonic Engineer Required: No Allergies carbamazepine (From Tegretol) Allergy (Mild, Verified 02/13/25 08:32) Hives HPI Comments Details: Patient is a 54-year-old female with past medical history of hypertension, constipation and diverticulitis. She was referred by PCP for further eval of diverticulitis. She was evaluated by her PCP fall 2024 for acute abdominal pain and stool changes. She underwent a CT 10/2023 which revealed uncomplicated diverticulitis in the descending colon without evidence of abscess. First screening colonoscopy 04/2019, difficulty reported due to significant looping and tortuous colon. However, successful completion aided by abdominal pressure and good prep. Diverticulosis noted in the sigmoid colon and ascending colon. She underwent an endoscopy as well. Appears for heartburn and esophageal reflux evaluation. Suspicion for Hodges's esophagus. Biopsy results not available at time of visit. She reports concern for ? Rectocele-describes as a bulge between the vagina and the rectum in the setting of chronic constipation. She is unclear if symptoms change with defecating. She is scheduled to see Urogynecology in the coming months. Reports daily bowel movements with soft formed stools. However, reports sensation of incomplete evacuation X approximately 10 months. She endorses adequate hydration and consumes Metamucil daily. Also uses a squatty potty. Does experience occasional hemorrhoids-currently denies episode. Patient denies: systemic symptoms, n/v, appetite changes, unexplained weight loss or melena/hematochezia She is prescribed olmesartan for hypertenion managment. Prescribed Ozempic since October 2023 for weight management. She denies any major surgeries, other cardiopulmonary condition or any personal CA history Social history: Consumes approximately 2 glasses of wine 4x/week Denies recreational drug use? Non -smoker Family history: Father-prostate cancer Paternal aunt-breast cancer, remission 08/03/24: MR defecography: 09/05/24: 1. Normal colon mucosa 2. Diverticulosis 3. Internal hemorrhoids 09/11/24: Here for post colonoscopy follow-up. Notes reviewed from [facility]. Patient initially was planning to proceed with surgical repair, however reports that with medical management alone, constipation is under control and she currently is asymptomatic. Reviewed that based on defecography, appears to have intermittent urethral obstruction as well as incompletely emptying anterior rectocele. Encouraged seeing Colorectal surgery as well further input. 03/12/25: Here for follow up. Was seen by UroGYN dr nova and [facility] for rectocele repair May 2025. Reports has a decent bowel regimen but with increasing fiber and modifying diet to slightly high protein diet she has been noticing increase in bloating and distention with slight wrosening of constipation. Thinks miralax is contributing somewhat to bloating so has discontinued that for a week. Looking for alt strategies for improvment in bowel habits while she is awaiting rectocele surgery. [facility] Medical History Trigeminal neuralgia HTN (hypertension) Surgical History H/O sinus surgery H/O tubal ligation Hx of colposcopy with cervical biopsy Hx of colonoscopy History of esophagogastroduodenoscopy (EGD) Family History Father HTN (hypertension) Mother HTN (hypertension) Sister HTN (hypertension) Paternal Aunt Breast cancer Social History Household Members: Spouse Household Members Other:: mother Housing: House Alcohol intake: current Alcohol intake frequency: a few times a month Alcohol type: wine Patient Tobacco Use Status: Never used Tobacco Current occupational status: employed 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[employer], 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 Sexual orientation: Straight/Heterosexual Gender identity: Female Review of Systems Const All systems reviewed & are unremarkable except as noted in HPI and below Physical Exam Exam Exam: No apparent distress Nonicteric Abdomen soft, nondistended Alert and oriented x3, normal gait Vital Signs: Last Vital Signs Pulse 69 03/12/25 09:15 BP 109/71 03/12/25 09:15 BMI result Body Mass Index 30.6 Assessment & Plan Assessment & Plan (1) Constipation: Code(s): K59.00 - Constipation, unspecified Category: Medical (2) Rectocele: Code(s): N81.6 - Rectocele Category: Medical (3) Diverticulosis: Code(s): K57.90 - Diverticulosis of intestine, part unspecified, without perforation or abscess without bleeding Category: Medical Plan Has seen Urogyn and surg planned for May. In terms of increased constipation and bloating, OK to DC miralax. Will give trial of Linzess. Pt advised to start with linzess 72 once daily and increase to 144 if no response in a week. Pt to call us/msg on portal to update us. Routine asymptomatic colo due in 2034. Follow up in 4 months Medications: New linaclotide (Linzess) Take 1-2 capsules daily for at least 3 soft BMs per week. 72 mcg PO DAILY 90 caps 0RF 90 days Coding Level of Care Code Est Pt Level 4 (60060) Diagnoses Constipation K59.00 Rectocele N81.6 Diverticulosis K57.90
--- OUTSIDE RECORDS SUMMARY | 2025-03-12 09:25 | XMS_ITS | Encounter Summary ---
Author Organization [facility] Address [address] [place] [address] Phone Care Team Providers Care Pool Table Operator Name Role Phone Kacey Richardson Primary Care Prov ider Reason for Referral * MRI/CAT Scan - Closed Specialty Diagnoses / Procedures Referred By Rajesh rubio Referred To Contact Radiology Diagnoses LLQ pain Procedures CT Abdomen/Pelvis CT Abdomen/Pelvis CHG CT SCAN,ABDOMENT AND PELVIS,W CONTRAST CHG CT SCAN,ABDOMENT AND PELVIS,COMBO Eli Mccallum MD Phone: tel: fax: mailto:[email or web address] Referral ID Status Reason Start Date Expiration Date Visits Re quested Visits Authorized [id number] Closed 10/20/2023 12/18/2023 1 1 Encounter Details Date Type Department Care Team (Late st Contact Info) Description 10/26/2023 Ancillary Orders Virtual Department [address] [place] [address] Eli Mccallum MD [address] [place] [address] [email or web address] LLQ pain (Primary Dx) Social History [...] quadrant documented in this encounter Care Teams Pool Table Operator Relationship Specialty Start Date End Date Kacey Richardson PA [address] [place] [address] PCP - General Physician Hydraulic Plumber 01/11/23 documented as of this encounter Additional Source Comments The information contained in this document represents components of the legal health record. It is not the complete legal health record.[facility]
--- OUTSIDE RECORDS SUMMARY | 2025-03-12 09:25 | XMS_ITS | Encounter Summary ---
Author Organization [facility] Address [address] [place] [address] Phone Care Team Providers Care Translator Deaf Name Role Phone Farzad Haskins MD Unavailable [phone] Fatoumata Ribeiro NP Unavailable [phone] Maura Diego MD Unavailable [phone] Jordan Olivas MD Primary Care Provider [phone] Kacey Richardson Primary Care Prov ider Encounter Details Date Type Department Care Team (Late st Contact Info) Description 01/14/2020 Ancillary Orders [facility] [address] [place] [address] Kacey Richardson PA [address] [place] [address] [email or web address] Breast screening Social History Tobacco Use [...] unspecified documented in this encounter Care Teams Translator Deaf Relationship Specialty Start Date End Date Jordan Olivas MD [address] [place] [address] [email or web address] PCP - General Family Medicine 07/31/17 01/10/23 Kacey Richardson PA [address] [place] [address] jose alberto PCP - General Physician Turf Manager 01/11/23 Farzad Haskins MD [address] [place] [address] [email or web address] Historical LMR Provider 12/28/16 03/20/21 Fatoumata Ribeiro NP [address] [place] [address] Historical LMR Provider 12/28/16 2 Maura Diego MD [address] [place] [address] Orthopedics & Sports Medicine, [facility] [place] [address] Historical LMR Provider 12/28/16 03/20/21 documented as of this encounter Additional Source Comments The information contained in this document represents components of the legal health record. It is not the complete legal health record.[facility]
--- OUTSIDE RECORDS SUMMARY | 2025-03-12 09:25 | XMS_ITS | Encounter Summary ---
Author Organization [facility] Address [address] [place] [address] Phone Care Team Providers Care Public Interviewer Name Role Phone Kacey Richardson Primary Care Prov ider Encounter Details Date Type Department Care Team (Late st Contact Info) Description 10/20/2023 Procedure Pass [facility], Ct Scan - [facility] [address] [place] [address] Social History Tobacco Use Types Packs/Day Years [...] on filedocumented in this encounter Care Teams Public Interviewer Relationship Specialty Start Date End Date Kacey Richardson PA [address] [place] [address] PCP - General Physician Pediatric Physician Assistant 01/11/23 documented as of this encounter Additional Source Comments The information contained in this document represents components of the legal health record. It is not the complete legal health record.[facility]
--- OUTSIDE RECORDS SUMMARY | 2025-03-12 09:25 | XMS_ITS | Encounter Summary ---
Author Organization [facility] Address [address] [place] [address] Phone Care Team Providers Care Ophthalmic Technician Name Role Phone Farzad Haskins MD Unavailable [phone] Fatoumata Ribeiro NP Unavailable [phone] Maura Diego MD Unavailable [phone] Jordan Olivas MD Primary Care Provider Kacey Richardson Primary Care Prov ider Reason for Referral * Consultation (Elective) - Closed Specialty Diagnoses / Procedures Referred By Rajesh t Referred To Contact Pulmonary Disease Jordan Olivas MD Phone: tel: fax: [email or web address] [facility] [address] [place] [address] Phone: tel: Referral ID Status Reason Start Date Expiration Date Visits Re quested Visits Authorized [id number] Closed 04/08/2020 04/08/2021 1 1 Encounter Details Date Type Department Care Team (Late st Contact Info) Description 04/08/2020 Transcribe Orders [facility] Pulmonology, Allergy and Critical Care Medicine Clinic [address] [place], [place] [id number] Jordan Olivas MD [address] [facility] [address] [place] [address] [email or web address] Social History Tobacco Use Types Packs/Day Years [...] Associated Diagnoses Order Schedule Ambulatory referral to [facility] Pulmonology Outpatient Referral Routine Ordered: 04/08/2020 documented as of this encounter Visit Diagnoses Not on filedocumented in this encounter Care Teams Ophthalmic Technician Relationship Specialty Start Date End Date Jordan Olivas MD [address] [facility] [address] [place] [address] [email or web address] PCP - General Family Medicine 07/31/17 01/10/23 Kacey Richardson PA [address] [place] [address] jose [email or web address] PCP - General Physician Road Worker 01/11/23 Farzad Haskins MD [address] [place] [address] [email or web address] Historical LMR Provider 12/28/16 03/20/21 Fatoumata Ribeiro NP [address] [place] [address] Historical LMR Provider 12/28/16 2 Maura Diego MD [address] [place] [address] Orthopedics & Sports Medicine, [place] [address] [email or web address] Historical LMR Provider 12/28/16 03/20/21 documented as of this encounter Additional Source Comments The information contained in this document represents components of the legal health record. It is not the complete legal health record.[facility]
--- OUTSIDE RECORDS SUMMARY | 2025-03-12 09:25 | XMS_ITS | Encounter Summary ---
Author Organization [facility] Address [address] [facility] [address] [place] [address] Phone Care Team Providers Care Manager Online Name Role Phone Farzad Haskins MD Unavailable [phone] Fatoumata Ribeiro NP Unavailable [phone] Maura Diego MD Unavailable [phone] Jordan Olivas MD Primary Care Provider [phone] Kacey Richardson Primary Care Prov ider Encounter Details Date Type Department Care Team (Late st Contact Info) Description 12/14/2020 Procedure Pass [facility], [address] [address] Social History Tobacco Use Types Packs/Day Years [...] filedocumented in this encounter Care Teams Manager Online Relationship Specialty Start Date End Date Jordan Olivas MD [address] [facility] [address] [place] [address] [email or web address] PCP - General Family Medicine 07/31/17 01/10/23 Kacey Richardson PA [address] [place] [address] jose alberto PCP - General Physician Information Analyst 01/11/23 Farzad Haskins MD [address] [place] [address] [email or web address] Historical LMR Provider 12/28/16 03/20/21 Fatoumata Ribeiro NP [address] [place] [address] Historical LMR Provider 12/28/16 2 Maura Diego MD [address] [place] [address] Orthopedics & Sports Medicine, [place] [address] Historical LMR Provider 12/28/16 03/20/21 documented as of this encounter Additional Source Comments The information contained in this document represents components of the legal health record. It is not the complete legal health record.[facility]
--- OUTSIDE RECORDS SUMMARY | 2025-03-12 09:25 | XMS_ITS | Encounter Summary ---
Author Organization [facility] Address [address] [place] [address] Phone Care Team Providers Care Inhalation Therapy Aide Name Role Phone Kacey Richardson Primary Care Prov ider Encounter Details Date Type Department Care Team (Late st Contact Info) Description 04/03/2023 Procedure Pass [facility], [facility] [address] [place] [address] Social History Tobacco Use Types Packs/Day Years [...] on filedocumented in this encounter Care Teams Inhalation Therapy Aide Relationship Specialty Start Date End Date Kacey Rcihardson PA [address] [place] [address] PCP - General Physician Button Attaching Machine Operator 01/11/23 documented as of this encounter Additional Source Comments The information contained in this document represents components of the legal health record. It is not the complete legal health record.[facility]
--- OUTSIDE RECORDS SUMMARY | 2025-03-12 09:25 | XMS_ITS | Encounter Summary ---
Author Organization [facility] Address [address] [place] [address] Phone Care Team Providers Care Paper Spooler Name Role Phone Jordan Olivas MD Primary Care Provider [phone] Kacey Richardson Primary Care Prov ider Encounter Details Date Type Department Care Team (Late st Contact Info) Description 12/20/2021 Procedure Pass [facility], [facility] [address] [place] [address] Social History Tobacco Use Types Packs/Day Years [...] on filedocumented in this encounter Care Teams Paper Spooler Relationship Specialty Start Date End Date Jordan Olivas MD [address] [facility] [address] [place] [address] [email or web address] PCP - General Family Medicine 07/31/17 01/10/23 Kacey Richardson PA [facility] [place] [address] PCP - General Physician Shipping Technician 01/11/23 documented as of this encounter Additional Source Comments The information contained in this document represents components of the legal health record. It is not the complete legal health record.[facility]
--- OUTSIDE RECORDS SUMMARY | 2025-03-12 09:25 | XMS_ITS | Encounter Summary ---
Author Organization [facility] Address [address] [employer] [facility] [address] [place] [address] Phone Care Team Providers Care Equipment Worker Name Role Phone Farzad Haskins MD Unavailable [phone] Fatoumata Ribeiro NP Unavailable [phone] Maura Diego MD Unavailable [phone] Jordan Olivas MD Primary Care Provider [phone] Kacey Richardson Primary Care Prov ider Encounter Details Date Type Department Care Team (Late st Contact Info) Description 05/02/2019 Procedure Pass [facility] Endoscopy Admitting Dept Virtual Department [address] [place] [address] Social History Tobacco Use Types Packs/Day Years [...] on filedocumented in this encounter Care Teams Equipment Worker Relationship Specialty Start Date End Date Jordan Olivas MD [address] [facility] [address] [place] [address] [email or web address] PCP - General Family Medicine 07/31/17 01/10/23 Kacey Richardson PA [address] [place] [address] jose [email or web address] PCP - General Physician Regional Facilities Manager 01/11/23 Farzad Haskins MD [address] [place] [address] [email or web address] Historical LMR Provider 12/28/16 03/20/21 Fatoumata Ribeiro NP [address] [place] [address] Historical LMR Provider 12/28/16 2 Maura Diego MD [address] [place] [address] Orthopedics & Sports Medicine, [facility] [place] [address] [email or web address] Historical LMR Provider 12/28/16 03/20/21 documented as of this encounter Additional Source Comments The information contained in this document represents components of the legal health record. It is not the complete legal health record.[facility]
--- OUTSIDE RECORDS SUMMARY | 2025-03-12 09:25 | XMS_ITS | Encounter Summary ---
Author Organization [facility] Address [address] [place] [address] Phone Care Team Providers Care Internship Coordinator Name Role Phone Kacey Richardson Primary Care Prov ider Encounter Details Date Type Department Care Team (Late st Contact Info) Description 08/14/2023 Procedure Pass [facility], Ct Scan - [facility] [address] [place] [address] Social History Tobacco Use Types Packs/Day Years [...] on filedocumented in this encounter Care Teams Internship Coordinator Relationship Specialty Start Date End Date Kacey Richardson PA [address] [place] [address] PCP - General Physician Drop Hammer Setter Up 01/11/23 documented as of this encounter Additional Source Comments The information contained in this document represents components of the legal health record. It is not the complete legal health record.[facility]
--- OUTSIDE RECORDS SUMMARY | 2025-03-12 09:25 | XMS_ITS | Encounter Summary ---
Author Organization [facility] Address [address] [employer] [address] [place] [address] Phone Care Team Providers Care Home Advisor Name Role Phone Farzad Haskins MD Unavailable [phone] Fatoumata Ribeiro NP Unavailable [phone] Maura Diego MD Unavailable [phone] Jordan Olivas MD Primary Care Provider [phone] Kacey Richardson Primary Care Prov ider Encounter Details Date Type Department Care Team (Late st Contact Info) Description 01/14/2020 Procedure Pass [facility], [address] [address] Social History Tobacco Use Types Packs/Day Years [...] on filedocumented in this encounter Care Teams Home Advisor Relationship Specialty Start Date End Date Jordan Olivas MD [address] [facility] [address] [place] [address] [email or web address] PCP - General Family Medicine 07/31/17 01/10/23 Kacey Richardson PA [address] [place] [address] jose alberto PCP - General Physician Service Tester 01/11/23 Farzad Haskins MD [address] [place] [address] [email or web address] Historical LMR Provider 12/28/16 03/20/21 Fatoumata Ribeiro NP [address] [place] [address] Historical LMR Provider 12/28/16 2 Maura Diego MD [address] [place] [address] Orthopedics & Sports Medicine, [facility] [place] [address] Historical LMR Provider 12/28/16 03/20/21 documented as of this encounter Additional Source Comments The information contained in this document represents components of the legal health record. It is not the complete legal health record.[facility]
--- OUTSIDE RECORDS SUMMARY | 2025-03-12 09:26 | XMS_ITS | Encounter Summary ---
Author Organization [facility] Address [address] [facility] [address] [place] [address] Phone Care Team Providers Care Drugless Doctor Name Role Phone Kacey Richardson Primary Care Prov ider Encounter Details Date Type Department Care Team (Latest Contact Info) Description 10/20/2023 Transcribe Orders Virtual Department [address] [place] [address] Eli Mccallum MD [address] [place] [address] [email or web address] LLQ pain (Primary Dx) Social [...] quadrant documented in this encounter Care Teams Drugless Doctor Relationship Specialty Start Date End Date Kacey Richardson PA [address] [place] [address] PCP - General Physician Product Advisor 01/11/23 documented as of this encounter Additional Source Comments The information contained in this document represents components of the legal health record. It is not the complete legal health record.[facility]
--- OUTSIDE RECORDS SUMMARY | 2025-03-12 09:26 | XMS_ITS | Encounter Summary ---
Author Organization [facility] Address [address] [facility] [address] [place] [address] Phone Care Team Providers Care Ambulatory Care Coordinator Name Role Phone Kacey Richardson Primary Care Prov ider Encounter Details Date Type Department Care Team (Late st Contact Info) Description 01/11/2023 Transcribe Orders Virtual Department [address] [place] [address] Kacey Richardson PA [address] [place] [address] [email or web address] Breast screening (Primary Dx) Social History [...] unspecified documented in this encounter Care Teams Ambulatory Care Coordinator Relationship Specialty Start Date End Date Kacey Richardson PA [address] [place] [address] PCP - General Physician Federal Air Marshal 01/11/23 documented as of this encounter Additional Source Comments The information contained in this document represents components of the legal health record. It is not the complete legal health record.[facility]
--- OUTSIDE RECORDS SUMMARY | 2025-03-12 09:26 | XMS_ITS | Encounter Summary ---
Author Organization [facility] Address [address] [facility] [address] [place] [address] Phone Care Team Providers Care Inventory Technician Name Role Phone Farzad Haskins MD Primary Care Provider + [phone] Farzad Haskins MD Unavailable [phone] Fatoumata Ribeiro NP Unavailable [phone] Maura Diego MD Unavailable [phone] Jordan Olivas MD Primary Care Provider [phone] Kacey Richardson Primary Care Prov ider Encounter Details Date Type Department Care Team (Late st Contact Info) Description 05/05/2017 Ancillary Orders Virtual Department [address] [place] [address] Daniel Colin MD [address] [place] [address] Drive [address] [place] [address] Visit for screening mammogram Social History Tobacco [...] mammogram documented in this encounter Care Teams Inventory Technician Relationship Specialty Start Date End Date Farzad Haskins MD [address] [place] [address] [email or web address] PCP - General 09/10/13 07/30/17 Jordan Olivas MD [address] [facility] [address] [place] [address] [email or web address] PCP - General Family Medicine 07/31/17 01/10/23 Kacey Richardson PA [address] [place] [address] [email or web address] PCP - General Physician Reproduction Technician 01/11/23 Farzad Haskins MD [address] [place] [address] [email or web address] Historical LMR Provider 12/28/16 03/20/21 Fatoumata Ribeiro NP [address] [place] [address] Historical LMR Provider 12/28/16 2 Maura Diego MD [address] [place] [address] Orthopedics & Sports Medicine, [facility] [place] [address] Historical LMR Provider 12/28/16 03/20/21 documented as of this encounter Additional Source Comments The information contained in this document represents components of the legal health record. It is not the complete legal health record.[facility]
--- OUTSIDE RECORDS SUMMARY | 2025-03-12 09:26 | XMS_ITS | Encounter Summary ---
Author Organization [facility] Address [address] [facility] [address] [place] [address] Phone Care Team Providers Care Loading Inspector Name Role Phone Farzad Haskins MD Unavailable [phone] Fatoumata Ribeiro NP Unavailable [phone] Maura Diego MD Unavailable [phone] Jordan Olivas MD Primary Care Provider [phone] Kacey Richardson Primary Care Prov ider Encounter Details Date Type Department Care Team (Late st Contact Info) Description 06/08/2018 Ancillary Orders Virtual Department [address] [place] [address] Jordan Olivas MD [address] [facility] [address] [place] [phone] [email or web address] Breast screening Social History Tobacco Use Types [...] lowers the sensitivity of mammography. POS - [id number] Narrative 08/15/2018 8:21 AM EDT Standard digital [...] and compared with multiple prior studies, most [id number]/04/2018, with utilization of computer-aided detection. The breast [...] whichlowers the sensitivity of mammography. POS - [id number] Jrodan Olivas MD IMG MG EXAMS Final Result documented in this encounter Visit Diagnoses Diagnosis Breast screening Breast screening, unspecified Breast screening Breast screening, unspecified documented in this encounter Care Teams Loading Inspector Relationship Specialty Start Date End Date Jordan Olivas MD [address] [facility] [address] [place] [address] [email or web address] PCP - General Family Medicine 07/31/17 01/10/23 Kacey Richardson PA [address] [place] [address] [email or web address] PCP - General Physician Dental Assistant Teacher 01/11/23 Farzad Haskins MD [address] [place] [address] [email or web address] Historical LMR Provider 12/28/16 03/20/21 Fatoumata Ribeiro NP [address] [place] [address] Historical LMR Provider 12/28/16 2 Maura Diego MD [address] [place] [address] Orthopedics & Sports Medicine, [facility] [place] [address] [email or web address] Historical LMR Provider 12/28/16 03/20/21 documented as of this encounter Additional Source Comments The information contained in this document represents components of the legal health record. It is not the complete legal health record.[facility]
--- OUTSIDE RECORDS SUMMARY | 2025-03-12 09:26 | XMS_ITS | Encounter Summary ---
Author Organization [facility] Address [address] [facility] [address] [place] [address] Phone Care Team Providers Care Customer Service Representative Teacher Name Role Phone Kacey Richardson Primary Care Prov ider Encounter Details Date Type Department Care Team (Latest Contact Info) Description 04/03/2023 Transcribe Orders Virtual Department [address] [place] [address] Daniel Colin MD [address] [place] [address] Drive [address] [place] [address] Breast screening (Primary Dx) Social [...] unspecified documented in this encounter Care Teams Customer Service Representative Teacher Relationship Specialty Start Date End Date Kacey Richardson PA [address] [place] [address] PCP - General Physician Abrasive Grinder 01/11/23 documented as of this encounter Additional Source Comments The information contained in this document represents components of the legal health record. It is not the complete legal health record.[facility]
--- OUTSIDE RECORDS SUMMARY | 2025-03-12 09:26 | XMS_ITS | Encounter Summary ---
Author Organization [facility] Address [address] [place] [address] Phone Care Team Providers Care Oil And Gas Exploration Technician Name Role Phone Kacey Richardson Primary Care Prov ider Encounter Details Date Type Department Care Team (Late st Contact Info) Description 01/11/2023 Procedure Pass [facility], [facility] [address] [place] [address] Social History Tobacco Use Types Packs/Day Years [...] on filedocumented in this encounter Care Teams Oil And Gas Exploration Technician Relationship Specialty Start Date End Date Kacey Richardson PA [address] [place] [address] PCP - General Physician Stretcher And Drier 01/11/23 documented as of this encounter Additional Source Comments The information contained in this document represents components of the legal health record. It is not the complete legal health record.[facility]
--- OUTSIDE RECORDS SUMMARY | 2025-03-12 09:26 | XMS_ITS | Clinical Summary ---
Author Organization [facility] Address [address] [place] [address] Phone Care Team Providers Care Feedlot Manager Name Role Phone Kacey Richardson Primary Care [...] high school, GED, job training, learning the Vietnamese language, technical skills, or developing parenting skills)? [...] 49 Admit Type: Outpatient Gender: Female Room: [place] [address] Referring MD: Jordan Olivas MD Exam Type: [...] monitored continuously. The Olympus adult variable colonoscope [id number] #4 was introduced through the anus and [...] 12:24 PM Procedure Code(s): --- Professional --- 88466, Colonoscopy, flexible; diagnostic, including collection of specimen(s) by brushing or washing, when performed (separateprocedure) --- Technical --- 86403, Colonoscopy, flexible; diagnostic, including collection of specimen(s) [...] perforation orabscess without bleeding CPT copyright 2018 [employer]. All rights reserved. The codes documented in this report are preliminary and upon monogram and letter paster reviewmay be revised to meet current compliance requirements. Procedure Date: 05/02/2019 12:24:42 PM [address] [place] [address] Jordan Olivas MD GI PROCEDURE ORDERABLES Final Re sult from Last 3 Months or Most Recently Relevant to Health Maintenance Insurance BLUE CROSS BLUE BENEFITS ADMINISTRATORS Native ADMINISTRATORS [employer] BENEFITS ADMINISTRATORS [employer] Care Teams Feedlot Manager Relationship Specialty Start Date End Date Kacey Richardson PA [facility] [place] [address] PCP - General Physician Commercial Production Editor 01/11/23 Additional Source Comments The information contained in this document represents components of the legal health record. It is not the complete legal health record.[facility]
== END 2025-03-12 09:51 | disposition home or self-care (01) ==
LOC: HO.HGI 09:13
PROVIDERS: PCP Family Medicine; Visit Provider Internal Medicine
DX: K59.00 Constipation, unspecified (principal); N81.6 Rectocele; K57.90 Diverticulosis of intestine, part unspecified, without perforation or abscess without bleeding
CPT/HCPCS: 99214